=== PATIENT | male | born 1995 | race Two or more races ===

== ENCOUNTER 2024-01-25 00:42 | Inpatient (IN) | payer MEDICAID, OTHER ==
[~2024-01-25] VITALS: Ht 188 cm; Wt 95.0 kg
[2024-01-25 01:22] LABS: Basophils # (auto) 0.1 10 ^3/uL (0-0.2); Basophils % (auto) 1.6 % (0.0-2.0); Eosinophils # (auto) 0.1 10 ^3/uL (0-0.8); Eosinophils % (auto) 2.7 % (0.0-7.0); Hematocrit 33.4 % (41.0-53.0); Hemoglobin 10.9 g/dL (13.5-17.5); Lymphocytes # (auto) 1.4 10 ^3/uL (0.4-5.4); Lymphocytes % (auto) 26.3 % (10.0-50.0); Mean Corpuscular Hemoglobin 27.6 pg (28.0-32.0); Mean Corpuscular Hgb Conc. 32.7 g/dL (32.0-36.0); Mean Corpuscular Volume 84.3 fL (80.0-100.0); Monocytes # (auto) 0.5 10 ^3/uL (0-1.3); Monocytes % (auto) 9.3 % (0.0-12.0); Neutrophils # (auto) 3.2 10 ^3/uL (1.6-8.6); Neutrophils % (auto) 60.1 % (37.0-80.0); Nucleated Red Blood Cells % 0.1 %; Red Blood Cells 3.96 10^6/uL (4.5-5.90); Red Cell Distribution Width 17.1 % (11.8-14.3); White Blood Cell 5.4 10^3/uL (4.4-10.8)
[2024-01-25 01:36] LABS: Alanine Aminotransferase 20 U/L (7-40); Albumin 3.8 g/dL (3.2-4.8); Alkaline Phosphatase 80 U/L (46-116); Anion Gap 8 (5-15); Aspartate Aminotransferase 32 U/L (13-40); BUN/Creatinine Ratio 18.3 (10.0-20.0); Blood Urea Nitrogen 17 mg/dL (9-23); Calcium 9.2 mg/dL (8.7-10.4); Carbon Dioxide 23 mmol/L (20-30); Chloride 109 mmol/L (98-107); Glucose 113 mg/dL (74-106); Potassium 3.3 mmol/L (3.5-5.1); Sodium 140 mmol/L (136-145)
[2024-01-25 01:37] LABS: Bilirubin, Total 1.4 mg/dL (0.2-1.0); Total Protein 6.7 g/dL (5.7-8.2)
[2024-01-25 08:00] VITALS: PULSE 100; RESP 16; O2SAT 97
[2024-01-25 08:39] LABS: Urine Bacteria None Seen /hpf (None Seen)
[2024-01-25 08:49] LABS: Urine Blood Negative /uL (Negative); Urine Clarity Clear (Clear); Urine Color Colorless (Yellow); Urine Protein, UAD Negative (Negative); Urine Specific Gravity 1.007 (1.001-1.035); Urine Urobilinogen Normal (Negative); Urine WBC <1 /hpf (0 - 3)
[2024-01-25] MEDS ORDERED: EMPA1TAB PO (08:59)
[2024-01-25] MEDS ORDERED: METO-289 PO (08:59)
[2024-01-25] MEDS ORDERED: MIRT1TAB38 PO (08:59)
[2024-01-25] MEDS ORDERED: APIX5TAB PO (08:59)
[2024-01-25] MEDS ORDERED: LOS25T PO (08:59)
[2024-01-25] MEDS ORDERED: ATOR40TA52 PO (08:59)
[2024-01-25] MEDS ORDERED: DAPA1TAB4 PO (08:59)
[2024-01-25] MEDS ORDERED: ASPI81CH59 PO (08:59)
[2024-01-25] MEDS ORDERED: QUET100T47 PO (08:59)
[2024-01-25] MEDS ORDERED: LISI2.5T47 PO (08:59)
[2024-01-25] MEDS ORDERED: FURO40TA4 PO (08:59)
[2024-01-25] MEDS ORDERED: DULO1CAP5 PO (08:59)
[2024-01-25] MEDS ORDERED: VALP250C3 (08:59)
[2024-01-25] MEDS ORDERED: LEVE500T3 PO (08:59)
[2024-01-25] MEDS ORDERED: ACETAMINOPHEN 325 MG TAB PO PRN (09:00)
[2024-01-25] MEDS ORDERED: NITROGLYCERIN 0.4 MG SL TAB SL PRN (09:00)
[2024-01-25 09:22] LABS: Amphetamine Screen, Urine Neg (NEGATIVE); Barbiturate Scree,Urine Neg (NEGATIVE); Benzodiazephine Screen, Urine Neg (NEGATIVE); Cannabinoid Screen, Urine Neg (NEGATIVE); Cocaine Screen, Urine Neg (NEGATIVE); Opiate Scree,Urine Neg (NEGATIVE); Phencyclidine Screen, Urine Neg (NEGATIVE)
[2024-01-25 09:36] LABS: Basophils # (auto) 0.1 10 ^3/uL (0-0.2); Basophils % (auto) 1.4 % (0.0-2.0); Eosinophils # (auto) 0.1 10 ^3/uL (0-0.8); Eosinophils % (auto) 2.3 % (0.0-7.0); Hematocrit 33.2 % (41.0-53.0); Hemoglobin 10.8 g/dL (13.5-17.5); Lymphocytes # (auto) 1.4 10 ^3/uL (0.4-5.4); Lymphocytes % (auto) 24.2 % (10.0-50.0); Mean Corpuscular Hemoglobin 27.6 pg (28.0-32.0); Mean Corpuscular Hgb Conc. 32.6 g/dL (32.0-36.0); Mean Corpuscular Volume 84.5 fL (80.0-100.0); Monocytes # (auto) 0.5 10 ^3/uL (0-1.3); Monocytes % (auto) 8.7 % (0.0-12.0); Neutrophils # (auto) 3.6 10 ^3/uL (1.6-8.6); Neutrophils % (auto) 63.4 % (37.0-80.0); Nucleated Red Blood Cells % 0.1 %; Red Blood Cells 3.93 10^6/uL (4.5-5.90); White Blood Cell 5.7 10^3/uL (4.4-10.8)
[2024-01-25 09:41] LABS: Chloride 109 mmol/L (98-107); Potassium 3.5 mmol/L (3.5-5.1); Sodium 141 mmol/L (136-145)
[2024-01-25 09:42] LABS: Anion Gap 10 (5-15); Calcium 9.5 mg/dL (8.7-10.4); Carbon Dioxide 22 mmol/L (20-30)
[2024-01-25 09:47] LABS: BUN/Creatinine Ratio 16.3 (10.0-20.0); Blood Urea Nitrogen 16 mg/dL (9-23); Glucose 98 mg/dL (74-106); Magnesium 1.5 mg/dL (1.6-2.6)
[2024-01-25] MEDS: POTASSIUM EFFERVESENT TAB 25 MEQ PO ONE (10:47)
[2024-01-25] MEDS: ASPirin 81 mg TAB PO SCH (10:47)
[2024-01-25] MEDS: EMPAGLIFLOZIN 10 MG TAB PO SCH (10:47)
[2024-01-25] MEDS: levETIRAcetam 500 MG TAB PO SCH (10:47)
[2024-01-25] MEDS: QUEtiapine FUMARATE 100 MG TAB PO SCH (10:48)
[2024-01-25] MEDS: APIXABAN 5 MG TAB PO SCH (10:48)
[2024-01-25] MEDS: DULoxetine HCL 30 MG CAP PO SCH (10:49)
[2024-01-25] MEDS: LISINOPRIL 5 MG TAB PO SCH (10:49)
[2024-01-25] MEDS: LOSARTAN POTASSIUM 25 MG TAB PO SCH (10:50)
[2024-01-25] MEDS: FUROSEMIDE 20 MG/2 ML VIAL IV ONE (10:50)
[2024-01-25] MEDS: METOPROLOL SUCCINATE XL 50 MG TAB PO SCH (10:51)
[2024-01-25 11:29] VITALS: BP 123/78; PULSE 100; PULSE 105; RESP 18; RESP 21; TEMP 98; O2SAT 100; O2SAT 92
[2024-01-25] MEDS: MORPHINE SULFATE INJ 2 MG/ml SYRG IV PRN (11:40)
[2024-01-25 12:45] VITALS: BP 123/78; PULSE 105; RESP 21; TEMP 98; O2SAT 100
[2024-01-25] MEDS: MAGNESIUM SULFATE 1GM/100ML 100 ML IV SCH (16:08)
[2024-01-25 17:00] VITALS: BP 115/73; PULSE 91; RESP 17; TEMP 97.5; O2SAT 97
[2024-01-25 20:00] VITALS: PULSE 89; PULSE 91; RESP 18; O2SAT 100
[2024-01-25] MEDS: ATORVASTATIN 20 MG TAB PO SCH (20:59)
[2024-01-25 21:00] VITALS: BP 101/69; PULSE 76; RESP 18; TEMP 97.8; O2SAT 99
[2024-01-26] VITALS (10 sets, daily range): BP systolic 96–114; BP diastolic 52–82; PULSE 65–92; RESP 16–22; TEMP 97.4–98.4; O2SAT 91–100
[2024-01-26 06:15] LABS: Basophils # (auto) 0.1 10 ^3/uL (0-0.2); Basophils % (auto) 1.5 % (0.0-2.0); Eosinophils # (auto) 0.1 10 ^3/uL (0-0.8); Eosinophils % (auto) 2.5 % (0.0-7.0); Hematocrit 33.4 % (41.0-53.0); Lymphocytes # (auto) 1.4 10 ^3/uL (0.4-5.4); Lymphocytes % (auto) 29.1 % (10.0-50.0); Mean Corpuscular Hemoglobin 27.8 pg (28.0-32.0); Mean Corpuscular Volume 84.1 fL (80.0-100.0); Monocytes # (auto) 0.6 10 ^3/uL (0-1.3); Monocytes % (auto) 11.5 % (0.0-12.0); Neutrophils # (auto) 2.7 10 ^3/uL (1.6-8.6); Neutrophils % (auto) 55.4 % (37.0-80.0); Nucleated Red Blood Cells % 0.1 %; Red Blood Cells 3.98 10^6/uL (4.5-5.90); Red Cell Distribution Width 16.6 % (11.8-14.3); White Blood Cell 4.8 10^3/uL (4.4-10.8)
[2024-01-26 06:36] LABS: Alanine Aminotransferase 20 U/L (7-40); Albumin 3.6 g/dL (3.2-4.8); Alkaline Phosphatase 77 U/L (46-116); Anion Gap 11 (5-15); Aspartate Aminotransferase 27 U/L (13-40); Blood Urea Nitrogen 16 mg/dL (9-23); Calcium 9.4 mg/dL (8.7-10.4); Carbon Dioxide 24 mmol/L (20-30); Chloride 105 mmol/L (98-107); Glucose 86 mg/dL (74-106); Potassium 3.8 mmol/L (3.5-5.1); Sodium 140 mmol/L (136-145)
[2024-01-26 06:37] LABS: Bilirubin, Total 1.6 mg/dL (0.2-1.0); Total Protein 6.3 g/dL (5.7-8.2)
[2024-01-26] MEDS ORDERED: EMPAGLIFLOZIN 10 MG TAB PO SCH (10:00)
[2024-01-26] MEDS: IOHEXOL 350 MG/ML 100ML IJ ONE (12:51)
[2024-01-26] MEDS: FUROSEMIDE 40 MG/4 ML VIAL IV ONE (14:58)
[2024-01-26] MEDS: FUROSEMIDE 40 MG/4 ML VIAL IV SCH (18:00)
[2024-01-27] VITALS (11 sets, daily range): BP systolic 90–127; BP diastolic 51–85; PULSE 55–104; RESP 18–27; TEMP 97.1–98.9; O2SAT 95–100
[2024-01-27 06:11] LABS: Basophils # (auto) 0.1 10 ^3/uL (0-0.2); Basophils % (auto) 0.9 % (0.0-2.0); Eosinophils # (auto) 0.1 10 ^3/uL (0-0.8); Eosinophils % (auto) 0.6 % (0.0-7.0); Hematocrit 36.2 % (41.0-53.0); Hemoglobin 12.1 g/dL (13.5-17.5); Lymphocytes # (auto) 0.9 10 ^3/uL (0.4-5.4); Lymphocytes % (auto) 10.1 % (10.0-50.0); Mean Corpuscular Hemoglobin 28.1 pg (28.0-32.0); Mean Corpuscular Hgb Conc. 33.3 g/dL (32.0-36.0); Mean Corpuscular Volume 84.3 fL (80.0-100.0); Monocytes # (auto) 0.5 10 ^3/uL (0-1.3); Monocytes % (auto) 4.9 % (0.0-12.0); Neutrophils # (auto) 7.8 10 ^3/uL (1.6-8.6); Neutrophils % (auto) 83.5 % (37.0-80.0); Nucleated Red Blood Cells % 0.1 %; Red Blood Cells 4.29 10^6/uL (4.5-5.90); Red Cell Distribution Width 16.9 % (11.8-14.3); White Blood Cell 9.4 10^3/uL (4.4-10.8)
[2024-01-27 06:21] LABS: Chloride 102 mmol/L (98-107); Potassium 4.2 mmol/L (3.5-5.1); Sodium 137 mmol/L (136-145)
[2024-01-27 06:22] LABS: Anion Gap 10 (5-15); Calcium 9.6 mg/dL (8.7-10.4); Carbon Dioxide 25 mmol/L (20-30)
[2024-01-27 06:27] LABS: BUN/Creatinine Ratio 16.3 (10.0-20.0); Blood Urea Nitrogen 17 mg/dL (9-23); Glucose 87 mg/dL (74-106)
[2024-01-27] MEDS: METOPROLOL SUCCINATE XL 50 MG TAB PO SCH (10:43)
[2024-01-27] MEDS: DOCUSATE SOD 100 MG CAP PO ONE (14:38)
[2024-01-27 16:02] LABS: Rapid Influenza A Negative (Negative); Rapid Influenza B Negative (Negative)
[2024-01-27 16:03] LABS: COVID19 ANTIGEN SOFIA FIA NEGATIVE (NEGATIVE)
[2024-01-27 17:39] LABS: Base Excess 2.4 mmol/L (-2.0-2.0)
[2024-01-27 18:44] LABS: Basophils # (auto) 0.1 10 ^3/uL (0-0.2); Basophils % (auto) 1.2 % (0.0-2.0); Eosinophils # (auto) 0.1 10 ^3/uL (0-0.8); Eosinophils % (auto) 1.1 % (0.0-7.0); Hematocrit 36.7 % (41.0-53.0); Lymphocytes # (auto) 1.3 10 ^3/uL (0.4-5.4); Lymphocytes % (auto) 13.6 % (10.0-50.0); Mean Corpuscular Hemoglobin 27.3 pg (28.0-32.0); Mean Corpuscular Hgb Conc. 32.7 g/dL (32.0-36.0); Mean Corpuscular Volume 83.4 fL (80.0-100.0); Monocytes # (auto) 0.8 10 ^3/uL (0-1.3); Monocytes % (auto) 7.9 % (0.0-12.0); Neutrophils # (auto) 7.6 10 ^3/uL (1.6-8.6); Neutrophils % (auto) 76.2 % (37.0-80.0); Nucleated Red Blood Cells % 0.1 %; White Blood Cell 9.9 10^3/uL (4.4-10.8)
[2024-01-27 19:04] LABS: Alanine Aminotransferase 20 U/L (7-40); Albumin 3.7 g/dL (3.2-4.8); Alkaline Phosphatase 80 U/L (46-116); Anion Gap 5 (5-15); Aspartate Aminotransferase 18 U/L (13-40); Bilirubin, Total 2.1 mg/dL (0.2-1.0); Blood Urea Nitrogen 16 mg/dL (9-23); Calcium 9.3 mg/dL (8.7-10.4); Carbon Dioxide 31 mmol/L (20-30); Chloride 101 mmol/L (98-107); Glucose 100 mg/dL (74-106); Potassium 3.7 mmol/L (3.5-5.1); Sodium 137 mmol/L (136-145)
[2024-01-27 19:05] LABS: Total Protein 6.5 g/dL (5.7-8.2)
[2024-01-27 19:21] LABS: Base Excess 3.4 mmol/L (-2.0-2.0)
[2024-01-27] MEDS: VALPROIC ACID 250 MG/5 ML ORAL SOLN PO ONE (21:00)
[2024-01-27] MEDS: methylPREDNISolone SOD SUCC 40 MG/ML VL IV ONE (21:33)
[2024-01-27] MEDS: FUROSEMIDE 20 MG/2 ML VIAL IV SCH (21:41)
[2024-01-28] VITALS (20 sets, daily range): BP systolic 95–114; BP diastolic 56–77; PULSE 60–89; RESP 9–33; TEMP 97.6–98.2; O2SAT 93–100
[2024-01-28] MEDS: VALPROIC ACID 250 MG/5 ML ORAL SOLN PO ONE (00:28)
[2024-01-28 06:10] LABS: Basophils # (auto) 0 10 ^3/uL (0-0.2); Basophils % (auto) 0.3 % (0.0-2.0); Eosinophils # (auto) 0 10 ^3/uL (0-0.8); Hematocrit 34.8 % (41.0-53.0); Hemoglobin 11.4 g/dL (13.5-17.5); Lymphocytes # (auto) 0.4 10 ^3/uL (0.4-5.4); Mean Corpuscular Hemoglobin 27.3 pg (28.0-32.0); Mean Corpuscular Hgb Conc. 32.8 g/dL (32.0-36.0); Mean Corpuscular Volume 83.1 fL (80.0-100.0); Monocytes # (auto) 0.1 10 ^3/uL (0-1.3); Neutrophils # (auto) 5.5 10 ^3/uL (1.6-8.6); Neutrophils % (auto) 90.7 % (37.0-80.0); Nucleated Red Blood Cells % 0.1 %; Red Blood Cells 4.18 10^6/uL (4.5-5.90); Red Cell Distribution Width 16.9 % (11.8-14.3); White Blood Cell 6.1 10^3/uL (4.4-10.8)
[2024-01-28 06:29] LABS: Anion Gap 9 (5-15); Calcium 9.3 mg/dL (8.7-10.4); Carbon Dioxide 28 mmol/L (20-30); Chloride 100 mmol/L (98-107); Potassium 4.1 mmol/L (3.5-5.1); Sodium 137 mmol/L (136-145)
[2024-01-28 06:35] LABS: BUN/Creatinine Ratio 16.5 (10.0-20.0); Blood Urea Nitrogen 17 mg/dL (9-23); Glucose 126 mg/dL (74-106); Magnesium 1.9 mg/dL (1.6-2.6)
[2024-01-28] MEDS: methylPREDNISolone SOD SUCC 40 MG/ML VL IV SCH (09:17)
[2024-01-28] MEDS: VALPROIC ACID 250 MG/5 ML ORAL SOLN PO SCH (10:00)
[2024-01-28] MEDS ORDERED: SPIR25TA8 PO (13:53)
== END 2024-01-28 18:40 | disposition home or self-care (01) | DRG 194 ==
LOC: ER 00:42 → TELE 08:58 → TELE-WESTW 11:23 → DOU IN ICU 01-27 22:50
PROVIDERS: ADMIT Internal Medicine Pulmonary Disease; ATTEND Anesthesiology
DX: I11.0 Hypertensive heart disease with heart failure (principal); J96.21 Acute and chronic respiratory failure with hypoxia; I27.22 Pulmonary hypertension due to left heart disease; G40.909 Epilepsy, unspecified, not intractable, without status epilepticus; I48.91 Unspecified atrial fibrillation; E87.6 Hypokalemia; F15.10 Other stimulant abuse, uncomplicated; I50.23 Acute on chronic systolic (congestive) heart failure; J44.9 Chronic obstructive pulmonary disease, unspecified; Z99.81 Dependence on supplemental oxygen; Z20.822 Contact with and (suspected) exposure to COVID-19; F17.210 Nicotine dependence, cigarettes, uncomplicated; Z86.73 Personal history of transient ischemic attack (TIA), and cerebral infarction without residual deficits; Z79.01 Long term (current) use of anticoagulants; Z71.51 Drug abuse counseling and surveillance of drug abuser; Z93.1 Gastrostomy status
CPT/HCPCS: 36415; 36600; 70450; 71045; 71275; 80048; 80053; 80307; 81001; 82140; 82542; 82607; 82805; 82962; 83735; 83880; 84443; 84484; 85025; 85379; 87081; 87426; 87804; 93005; 93306; 93970; 97163; 99291; G0378

== ENCOUNTER 2024-02-15 13:52 | Emergency (ER) | payer MEDICAID ==
[~2024-02-15] VITALS: Ht 188 cm; Wt 90.0 kg
[~2024-02-15 13:52] MED LIST: APIX5TAB PO; ASPI81CH59 PO; ATOR40TA52 PO; DAPA1TAB4 PO; DULO1CAP5 PO; EMPA1TAB PO; FURO40TA4 PO; LEVE500T3 PO; LISI2.5T47 PO; METO-289 PO; MIRT1TAB38 PO; QUET100T47 PO; SPIR25TA8 PO; VALP250C3
[2024-02-15 15:05] LABS: Basophils # (auto) 0.1 10 ^3/uL (0-0.2); Eosinophils # (auto) 0.1 10 ^3/uL (0-0.8); Hemoglobin 12.1 g/dL (13.5-17.5)
[2024-02-15 15:09] LABS: Basophils % (auto) 1.4 % (0.0-2.0); Eosinophils % (auto) 2.4 % (0.0-7.0); Hematocrit 37.7 % (41.0-53.0); Lymphocytes % (auto) 20.1 % (10.0-50.0); Mean Corpuscular Hemoglobin 26.4 pg (28.0-32.0); Mean Corpuscular Volume 82.6 fL (80.0-100.0); Monocytes # (auto) 0.5 10 ^3/uL (0-1.3); Monocytes % (auto) 11.2 % (0.0-12.0); Neutrophils # (auto) 3.1 10 ^3/uL (1.6-8.6); Neutrophils % (auto) 64.9 % (37.0-80.0); Nucleated Red Blood Cells % 0.1 %; Platelet Count (auto) 162 10^3/uL (140-450); Red Blood Cells 4.56 10^6/uL (4.5-5.90); Red Cell Distribution Width 17.8 % (11.8-14.3); White Blood Cell 4.8 10^3/uL (4.4-10.8)
[2024-02-15 15:20] VITALS: BP 117/81; PULSE 99; RESP 20; TEMP 97.3; O2SAT 96
[2024-02-15 15:23] LABS: Alanine Aminotransferase 18 U/L (7-40); Albumin 4.4 g/dL (3.2-4.8); Alkaline Phosphatase 85 U/L (46-116); Anion Gap 8 (5-15); Aspartate Aminotransferase 23 U/L (13-40); BUN/Creatinine Ratio 16.3 (10.0-20.0); Bilirubin, Total 2.7 mg/dL (0.2-1.0); Blood Urea Nitrogen 20 mg/dL (9-23); Calcium 10.1 mg/dL (8.7-10.4); Carbon Dioxide 27 mmol/L (20-30); Chloride 110 mmol/L (98-107); Creatine Kinase IFCC 77 U/L (46-171); Glucose 86 mg/dL (74-106); Potassium 3.9 mmol/L (3.5-5.1); Sodium 145 mmol/L (136-145); Total Protein 7.6 g/dL (5.7-8.2)
[2024-02-15] MEDS: cefTRIAXone SOD 1,000 MG VL IM ONE (17:33)
[2024-02-15] MEDS ORDERED: IBUP1TAB5 PO (17:49)
[2024-02-15] MEDS ORDERED: CEPH500C PO (17:49)
== END 2024-02-15 17:54 | disposition home or self-care (01) ==
LOC: ER 13:52
DX: S01.02XA Laceration with foreign body of scalp, initial encounter (principal); I48.91 Unspecified atrial fibrillation; I50.9 Heart failure, unspecified; J44.9 Chronic obstructive pulmonary disease, unspecified; F17.210 Nicotine dependence, cigarettes, uncomplicated; F15.90 Other stimulant use, unspecified, uncomplicated; Z86.73 Personal history of transient ischemic attack (TIA), and cerebral infarction without residual deficits; Z79.899 Other long term (current) drug therapy; W20.8XXA Other cause of strike by thrown, projected or falling object, initial encounter; Y93.01 Activity, walking, marching and hiking; Y92.89 Other specified places as the place of occurrence of the external cause; Y99.8 Other external cause status
CPT/HCPCS: 12032; 36415; 70450; 80053; 82550; 83605; 85025; 96372; 99285; J0696

== ENCOUNTER 2024-02-23 04:08 | Inpatient (IN) | payer MEDICAID ==
[~2024-02-23] VITALS: Ht 188 cm; Wt 92.5 kg
[2024-02-23] VITALS (9 sets, daily range): BP systolic 90–134; BP diastolic 48–69; PULSE 16–89; RESP 16–20; TEMP 98–98.8; O2SAT 96–100
[~2024-02-23 04:08] MED LIST changes: +CEPH500C PO; +IBUP1TAB5 PO
[2024-02-23] MEDS: ASPirin 81 mg TAB PO ONE (04:30)
[2024-02-23] MEDS: ONDANSETRON HCL 4 MG/2 ML VIAL ONE (04:37)
[2024-02-23] MEDS: ONDANSETRON HCL 4 MG/2 ML VIAL IV ONE (04:37)
[2024-02-23 04:55] LABS: Alanine Aminotransferase 17 U/L (7-40); Alkaline Phosphatase 85 U/L (46-116); Anion Gap 11 (5-15); Aspartate Aminotransferase 33 U/L (13-40); BUN/Creatinine Ratio 16.8 (10.0-20.0); Bilirubin, Total 1.9 mg/dL (0.2-1.0); Blood Urea Nitrogen 18 mg/dL (9-23); Calcium 8.8 mg/dL (8.7-10.4); Carbon Dioxide 18 mmol/L (20-30); Chloride 110 mmol/L (98-107); Glucose 77 mg/dL (74-106); Magnesium 1.7 mg/dL (1.6-2.6); Potassium 4.3 mmol/L (3.5-5.1); Sodium 139 mmol/L (136-145); Total Protein 6.8 g/dL (5.7-8.2)
[2024-02-23 05:31] LABS: Blood Alcohol < 3.0 mg/dL (<10)
[2024-02-23 05:52] LABS: Urine Bacteria None Seen /hpf (None Seen)
[2024-02-23 05:58] LABS: COVID19 ANTIGEN SOFIA FIA NEGATIVE (NEGATIVE); Rapid Influenza A Negative (Negative); Rapid Influenza B Negative (Negative)
[2024-02-23 06:01] LABS: Urine Blood Negative /uL (Negative); Urine Clarity Clear (Clear); Urine Color Light-Yellow (Yellow); Urine Protein, UAD 1+ (Negative); Urine Specific Gravity 1.007 (1.001-1.035); Urine Urobilinogen Normal (Negative); Urine WBC 1 /hpf (0 - 3)
[2024-02-23 06:22] LABS: Amphetamine Screen, Urine Pos (NEGATIVE); Barbiturate Scree,Urine Neg (NEGATIVE); Benzodiazephine Screen, Urine Neg (NEGATIVE); Cocaine Screen, Urine Neg (NEGATIVE); Opiate Scree,Urine Neg (NEGATIVE)
[2024-02-23 06:23] LABS: Cannabinoid Screen, Urine Neg (NEGATIVE); Phencyclidine Screen, Urine Neg (NEGATIVE)
[2024-02-23 06:35] LABS: Base Excess -3.8 mmol/L (-2.0-2.0)
[2024-02-23 06:35] LABS: Hematocrit 36.6 % (41.0-53.0); Hemoglobin 11.8 g/dL (13.5-17.5); Mean Corpuscular Hemoglobin 26.2 pg (28.0-32.0); Mean Corpuscular Hgb Conc. 32.2 g/dL (32.0-36.0); Mean Corpuscular Volume 81.3 fL (80.0-100.0); White Blood Cell 8.4 10^3/uL (4.4-10.8)
[2024-02-23 07:07] LABS: Basophils % (manual) 0 (0.0-2.0); Blast Cells 0; Metamyelocytes % 0; Myelocytes % 0; Promyelocytes % 0; Reactive Lymphocytes 0
[2024-02-23 07:09] LABS: Platelet Count (auto) 231 10^3/uL (140-450)
[2024-02-23 07:46] LABS: Band Neutrophils % (manual) 2; Eosinophils % (manual) 1 (0-7); Lymphocytes % (manual) 35 (10.0-50.0); Monocytes % (manual) 9 (0-12)
[2024-02-23 07:47] LABS: Platelet Estimate Adequate
[2024-02-23] MEDS: FUROSEMIDE 40 MG/4 ML VIAL IV ONE (10:58)
[2024-02-23] MEDS ORDERED: NITROGLYCERIN 0.4 MG SL TAB SL PRN (11:00)
[2024-02-23] MEDS: ASPirin-EC 81 mg tab PO ONE (11:00)
[2024-02-23] MEDS ORDERED: DOCUSATE SOD 100 MG CAP PO PRN (11:00)
[2024-02-23] MEDS ORDERED: HYDROcodone-ACET 5/325MG TAB PO PRN (11:00)
[2024-02-23] MEDS ORDERED: ACETAMINOPHEN 325 MG TAB PO PRN (11:00)
[2024-02-23] MEDS ORDERED: HYDROmorphone HCL 2 MG/ML VL/or syr IV PRN (11:00)
[2024-02-23] MEDS: MORPHINE SULFATE INJ 2 MG/ml SYRG IV PRN (11:48)
[2024-02-23] MEDS: ONDANSETRON HCL 4 MG/2 ML VIAL IV PRN (11:48)
[2024-02-23 12:50] LABS: Base Excess -3.9 mmol/L (-2.0-2.0)
[2024-02-23] MEDS: SODIUM CHLOR 0.9% PF (SALINE LOCK) 10ML VIAL/SYR IV SCH (13:35)
[2024-02-23] MEDS: DOBUTamine 1000MCG/ML 250 ML IV SCH (16:30)
[2024-02-23] MEDS: levETIRAcetam 500 MG TAB PO SCH (21:18)
[2024-02-23] MEDS: APIXABAN 5 MG TAB PO SCH (21:18)
[2024-02-23] MEDS: VALPROIC ACID 250 MG/5 ML ORAL SOLN PO SCH (21:18)
[2024-02-23] MEDS ORDERED: FUROSEMIDE 40 MG/4 ML VIAL IV SCH (22:00)
[2024-02-24] VITALS (9 sets, daily range): BP systolic 98–110; BP diastolic 51–76; PULSE 70–102; RESP 16–98; TEMP 97.3–98.3; O2SAT 96–99
[2024-02-24 05:54] LABS: Basophils # (auto) 0.1 10 ^3/uL (0-0.2); Eosinophils # (auto) 0.3 10 ^3/uL (0-0.8); Hemoglobin 10.7 g/dL (13.5-17.5); Mean Corpuscular Hemoglobin 25.6 pg (28.0-32.0); Monocytes # (auto) 0.9 10 ^3/uL (0-1.3); Red Blood Cells 4.17 10^6/uL (4.5-5.90)
[2024-02-24 05:56] LABS: Basophils % (auto) 1.7 % (0.0-2.0); Eosinophils % (auto) 4.4 % (0.0-7.0); Hematocrit 33.4 % (41.0-53.0); Lymphocytes # (auto) 1.9 10 ^3/uL (0.4-5.4); Lymphocytes % (auto) 27.7 % (10.0-50.0); Mean Corpuscular Volume 80.1 fL (80.0-100.0); Monocytes % (auto) 12.8 % (0.0-12.0); Neutrophils # (auto) 3.6 10 ^3/uL (1.6-8.6); Neutrophils % (auto) 53.4 % (37.0-80.0); Nucleated Red Blood Cells % 0.2 %; White Blood Cell 6.7 10^3/uL (4.4-10.8)
[2024-02-24 05:59] LABS: Alanine Aminotransferase 16 U/L (7-40); Albumin 3.5 g/dL (3.2-4.8); Alkaline Phosphatase 76 U/L (46-116); Anion Gap 8 (5-15); Aspartate Aminotransferase 26 U/L (13-40); BUN/Creatinine Ratio 15.8 (10.0-20.0); Blood Urea Nitrogen 18 mg/dL (9-23); Calcium 8.7 mg/dL (8.7-10.4); Carbon Dioxide 24 mmol/L (20-30); Chloride 104 mmol/L (98-107); Glucose 98 mg/dL (74-106); Magnesium 1.9 mg/dL (1.6-2.6); Potassium 3.6 mmol/L (3.5-5.1); Sodium 136 mmol/L (136-145)
[2024-02-24 06:00] LABS: Bilirubin, Total 1.7 mg/dL (0.2-1.0); Total Protein 6.3 g/dL (5.7-8.2)
[2024-02-24] MEDS: SPIRONOLACTONE 25 MG TAB PO SCH (08:04)
[2024-02-24] MEDS: EMPAGLIFLOZIN 10 MG TAB PO SCH (08:04)
[2024-02-24] MEDS: DULoxetine HCL 30 MG CAP PO SCH (08:05)
[2024-02-24] MEDS: QUEtiapine FUMARATE 100 MG TAB PO SCH (08:05)
[2024-02-24] MEDS: LISINOPRIL 5 MG TAB PO SCH (08:06)
[2024-02-24 08:08] LABS: Platelet Count (auto) 150 10^3/uL (140-450)
[2024-02-24] MEDS ORDERED: ATORVASTATIN 20 MG TAB PO SCH (10:00)
[2024-02-24] MEDS ORDERED: METOPROLOL SUCCINATE XL 50 MG TAB PO SCH (10:00)
[2024-02-24] MEDS ORDERED: PATIENTS OWN MEDICATION (Aspirin (Aspirin Low Dose) 1 TAB) PO SCH (10:00)
[2024-02-24] MEDS ORDERED: ENOXAPARIN SOD 40 MG/0.4 ML SYRINGE SC SCH (10:00)
[2024-02-24] MEDS ORDERED: SPIRONOLACTONE 25 MG TAB PO SCH (10:00)
[2024-02-24] MEDS: DAPAGLIFLOZIN PROPANEDIOL PO SCH (10:00)
[2024-02-24] MEDS ORDERED: ASPirin-EC 81 mg tab PO SCH (10:00)
[2024-02-24] MEDS: FUROSEMIDE 40 MG/4 ML VIAL IV ONE (10:40)
[2024-02-25] VITALS (10 sets, daily range): BP systolic 88–131; BP diastolic 46–76; PULSE 70–97; RESP 18–22; TEMP 97.5–98.8; O2SAT 95–99
[2024-02-25 07:04] LABS: Alanine Aminotransferase 15 U/L (7-40); Albumin 3.7 g/dL (3.2-4.8); Alkaline Phosphatase 85 U/L (46-116); Calcium 9.3 mg/dL (8.7-10.4); Carbon Dioxide 26 mmol/L (20-30); Chloride 105 mmol/L (98-107)
[2024-02-25 07:05] LABS: Anion Gap 6 (5-15); Aspartate Aminotransferase 25 U/L (13-40); BUN/Creatinine Ratio 13.8 (10.0-20.0); Bilirubin, Total 1.5 mg/dL (0.2-1.0); Blood Urea Nitrogen 15 mg/dL (9-23); Glucose 79 mg/dL (74-106); Potassium 3.9 mmol/L (3.5-5.1); Sodium 137 mmol/L (136-145); Total Protein 6.7 g/dL (5.7-8.2)
[2024-02-25 07:22] LABS: Basophils # (auto) 0.1 10 ^3/uL (0-0.2); Hematocrit 35.2 % (41.0-53.0); Lymphocytes # (auto) 1.3 10 ^3/uL (0.4-5.4); Nucleated Red Blood Cells % 0.1 %
[2024-02-25 07:24] LABS: Basophils % (auto) 1.6 % (0.0-2.0); Eosinophils # (auto) 0.3 10 ^3/uL (0-0.8); Eosinophils % (auto) 5.8 % (0.0-7.0); Hemoglobin 11.3 g/dL (13.5-17.5); Lymphocytes % (auto) 24.3 % (10.0-50.0); Mean Corpuscular Hemoglobin 25.7 pg (28.0-32.0); Mean Corpuscular Hgb Conc. 32.1 g/dL (32.0-36.0); Mean Corpuscular Volume 80.3 fL (80.0-100.0); Monocytes # (auto) 0.7 10 ^3/uL (0-1.3); Neutrophils % (auto) 56.3 % (37.0-80.0); Red Blood Cells 4.38 10^6/uL (4.5-5.90); Red Cell Distribution Width 17.8 % (11.8-14.3); White Blood Cell 5.4 10^3/uL (4.4-10.8)
[2024-02-25 07:28] LABS: Platelet Count (auto) 243 10^3/uL (140-450)
[2024-02-25] MEDS: FUROSEMIDE 40 MG/4 ML VIAL IV SCH (09:26)
[2024-02-26] VITALS (10 sets, daily range): BP systolic 90–106; BP diastolic 58–70; PULSE 76–90; RESP 16–20; TEMP 97–97.9; O2SAT 93–100
[2024-02-26 07:41] LABS: Basophils # (auto) 0.1 10 ^3/uL (0-0.2); Basophils % (auto) 1.5 % (0.0-2.0); Eosinophils # (auto) 0.3 10 ^3/uL (0-0.8); Eosinophils % (auto) 6.9 % (0.0-7.0); Hematocrit 37.9 % (41.0-53.0); Hemoglobin 11.9 g/dL (13.5-17.5); Lymphocytes % (auto) 23.6 % (10.0-50.0); Mean Corpuscular Hemoglobin 25.5 pg (28.0-32.0); Mean Corpuscular Hgb Conc. 31.5 g/dL (32.0-36.0); Mean Corpuscular Volume 81.1 fL (80.0-100.0); Monocytes # (auto) 0.6 10 ^3/uL (0-1.3); Monocytes % (auto) 13.8 % (0.0-12.0); Neutrophils # (auto) 2.3 10 ^3/uL (1.6-8.6); Neutrophils % (auto) 54.2 % (37.0-80.0); Nucleated Red Blood Cells % 0.2 %; Platelet Count (auto) 282 10^3/uL (140-450); Red Blood Cells 4.68 10^6/uL (4.5-5.90); Red Cell Distribution Width 17.8 % (11.8-14.3); White Blood Cell 4.3 10^3/uL (4.4-10.8)
[2024-02-26 07:49] LABS: Alanine Aminotransferase 12 U/L (7-40); Albumin 3.7 g/dL (3.2-4.8); Alkaline Phosphatase 81 U/L (46-116); Anion Gap 6 (5-15); Aspartate Aminotransferase 20 U/L (13-40); BUN/Creatinine Ratio 15.5 (10.0-20.0); Blood Urea Nitrogen 16 mg/dL (9-23); Calcium 9.1 mg/dL (8.7-10.4); Carbon Dioxide 26 mmol/L (20-30); Chloride 104 mmol/L (98-107); Glucose 92 mg/dL (74-106); Potassium 3.9 mmol/L (3.5-5.1); Sodium 136 mmol/L (136-145)
[2024-02-26 07:50] LABS: Bilirubin, Total 1.1 mg/dL (0.2-1.0); Total Protein 6.6 g/dL (5.7-8.2)
[2024-02-26] MEDS: METOPROLOL TARTRATE 25 MG TAB PO SCH (09:51)
[2024-02-27 01:00] VITALS: BP 80/47; PULSE 67; RESP 16; TEMP 98.7; O2SAT 100
[2024-02-27 01:25] VITALS: BP 92/65
[2024-02-27 05:00] VITALS: BP 89/55; PULSE 91; RESP 17; TEMP 98.5; O2SAT 99
[2024-02-27 05:33] LABS: Basophils # (auto) 0.1 10 ^3/uL (0-0.2); Eosinophils # (auto) 0.4 10 ^3/uL (0-0.8); Nucleated Red Blood Cells % 0.1 %; Red Cell Distribution Width 17.7 % (11.8-14.3)
[2024-02-27 05:40] LABS: Basophils % (auto) 1.4 % (0.0-2.0); Eosinophils % (auto) 6.5 % (0.0-7.0); Hematocrit 38.2 % (41.0-53.0); Hemoglobin 12.3 g/dL (13.5-17.5); Lymphocytes # (auto) 1.4 10 ^3/uL (0.4-5.4); Lymphocytes % (auto) 22.1 % (10.0-50.0); Mean Corpuscular Hgb Conc. 32.1 g/dL (32.0-36.0); Mean Corpuscular Volume 80.9 fL (80.0-100.0); Monocytes # (auto) 0.9 10 ^3/uL (0-1.3); Monocytes % (auto) 14.5 % (0.0-12.0); Neutrophils # (auto) 3.4 10 ^3/uL (1.6-8.6); Neutrophils % (auto) 55.5 % (37.0-80.0); Red Blood Cells 4.72 10^6/uL (4.5-5.90); White Blood Cell 6.1 10^3/uL (4.4-10.8)
[2024-02-27 05:58] LABS: Platelet Count (auto) 267 10^3/uL (140-450)
[2024-02-27 06:01] LABS: Alanine Aminotransferase 12 U/L (7-40); Alkaline Phosphatase 82 U/L (46-116); Anion Gap 6 (5-15); Aspartate Aminotransferase 14 U/L (13-40); BUN/Creatinine Ratio 15.4 (10.0-20.0); Blood Urea Nitrogen 16 mg/dL (9-23); Calcium 9.3 mg/dL (8.7-10.4); Carbon Dioxide 26 mmol/L (20-30); Chloride 107 mmol/L (98-107); Glucose 86 mg/dL (74-106); Magnesium 2.1 mg/dL (1.6-2.6); Potassium 4.4 mmol/L (3.5-5.1); Sodium 139 mmol/L (136-145)
[2024-02-27 06:02] LABS: Bilirubin, Total 0.9 mg/dL (0.2-1.0); Total Protein 6.9 g/dL (5.7-8.2)
[2024-02-27 08:00] VITALS: PULSE 86; RESP 18; O2SAT 98
[2024-02-27 09:06] VITALS: PULSE 86; RESP 18; O2SAT 98
[2024-02-27] MEDS ORDERED: SPIR25TA PO (12:08)
[2024-02-27 13:03] VITALS: BP 107/66; PULSE 85; RESP 18; TEMP 98.5; O2SAT 98
== END 2024-02-27 16:16 | disposition home or self-care (01) | DRG 194 ==
LOC: ER 04:08 → TELE 10:57 → TELE-WESTW 15:16
PROVIDERS: ADMIT Internal Medicine Pulmonary Disease; ATTEND Internal Medicine Pulmonary Disease
DX: I11.0 Hypertensive heart disease with heart failure (principal); J96.01 Acute respiratory failure with hypoxia; I42.7 Cardiomyopathy due to drug and external agent; I27.20 Pulmonary hypertension, unspecified; I48.91 Unspecified atrial fibrillation; G40.909 Epilepsy, unspecified, not intractable, without status epilepticus; F15.10 Other stimulant abuse, uncomplicated; Z20.822 Contact with and (suspected) exposure to COVID-19; I50.23 Acute on chronic systolic (congestive) heart failure; J44.9 Chronic obstructive pulmonary disease, unspecified; F17.210 Nicotine dependence, cigarettes, uncomplicated; I44.7 Left bundle-branch block, unspecified; I08.1 Rheumatic disorders of both mitral and tricuspid valves; Z86.73 Personal history of transient ischemic attack (TIA), and cerebral infarction without residual deficits; Z79.01 Long term (current) use of anticoagulants; Z91.199 Patient's noncompliance with other medical treatment and regimen due to unspecified reason; Y92.89 Other specified places as the place of occurrence of the external cause
CPT/HCPCS: 36415; 36600; 71045; 71250; 76700; 80053; 80307; 80320; 81001; 82805; 83735; 83880; 84484; 85007; 85025; 85027; 85379; 87426; 87804; 93005; 96374; 96375; 96376; 99291; G0378; J2405

== ENCOUNTER 2024-03-03 03:48 | Inpatient (IN) | payer MEDICAID, OTHER ==
[~2024-03-03] VITALS: Ht 188 cm; Wt 54.5 kg
[~2024-03-03 03:48] MED LIST changes: -ASPI81CH59 PO; -CEPH500C PO; -DAPA1TAB4 PO; -IBUP1TAB5 PO; -METO-289 PO; +SPIR25TA PO; -SPIR25TA8 PO
[2024-03-03 04:30] LABS: Basophils # (auto) 0.1 10 ^3/uL (0-0.2); Eosinophils # (auto) 0.2 10 ^3/uL (0-0.8); Monocytes # (auto) 0.8 10 ^3/uL (0-1.3); Nucleated Red Blood Cells % 0.1 %
[2024-03-03] MEDS: ASPirin 325 MG TAB PO ONE (04:30)
[2024-03-03] MEDS: NITROGLYCERIN 2% OINT 1GM PKG TD ONE (04:31)
[2024-03-03 04:33] LABS: Basophils % (auto) 1.3 % (0.0-2.0); Eosinophils % (auto) 3.2 % (0.0-7.0); Hematocrit 36.8 % (41.0-53.0); Hemoglobin 11.8 g/dL (13.5-17.5); Lymphocytes # (auto) 2.1 10 ^3/uL (0.4-5.4); Lymphocytes % (auto) 28.4 % (10.0-50.0); Mean Corpuscular Hemoglobin 25.8 pg (28.0-32.0); Mean Corpuscular Hgb Conc. 32.1 g/dL (32.0-36.0); Mean Corpuscular Volume 80.3 fL (80.0-100.0); Monocytes % (auto) 10.5 % (0.0-12.0); Neutrophils # (auto) 4.2 10 ^3/uL (1.6-8.6); Neutrophils % (auto) 56.6 % (37.0-80.0); Platelet Count (auto) 143 10^3/uL (140-450); Red Blood Cells 4.58 10^6/uL (4.5-5.90); Red Cell Distribution Width 17.8 % (11.8-14.3); White Blood Cell 7.3 10^3/uL (4.4-10.8)
[2024-03-03 04:58] LABS: Alanine Aminotransferase 14 U/L (7-40); Albumin 4.1 g/dL (3.2-4.8); Alkaline Phosphatase 86 U/L (46-116); Anion Gap 9 (5-15); Aspartate Aminotransferase 28 U/L (13-40); BUN/Creatinine Ratio 18.6 (10.0-20.0); Bilirubin, Total 1.7 mg/dL (0.2-1.0); Blood Urea Nitrogen 22 mg/dL (9-23); Calcium 9.6 mg/dL (8.7-10.4); Carbon Dioxide 21 mmol/L (20-30); Chloride 108 mmol/L (98-107); Glucose 125 mg/dL (74-106); Potassium 4.3 mmol/L (3.5-5.1); Sodium 138 mmol/L (136-145); Total Protein 7.4 g/dL (5.7-8.2)
[2024-03-03] MEDS: NITROGLYCERIN 0.4 MG SL TAB SL ONE (05:15)
[2024-03-03 05:53] VITALS: PULSE 100; RESP 22; O2SAT 97
[2024-03-03 07:36] LABS: COVID19 ANTIGEN SOFIA FIA NEGATIVE (NEGATIVE)
[2024-03-03 07:37] LABS: Rapid Influenza A Negative (Negative); Rapid Influenza B Negative (Negative)
[2024-03-03] MEDS: MORPHINE SULFATE INJ 2 MG/ml SYRG IV ONE (09:55)
[2024-03-03] MEDS ORDERED: NITROGLYCERIN 0.4 MG SL TAB SL PRN (10:30)
[2024-03-03] MEDS: FUROSEMIDE 100 MG/10ML VIAL IV ONE (10:30)
[2024-03-03 11:36] LABS: INR 1.37 (0.9-1.15); Prothrombin Time 14.2 sec (9.3-11.8)
[2024-03-03] MEDS: ASPirin 81 mg TAB PO SCH (11:44)
[2024-03-03] MEDS: SPIRONOLACTONE 25 MG TAB PO SCH (11:44)
[2024-03-03] MEDS: EMPAGLIFLOZIN 10 MG TAB PO SCH (11:45)
[2024-03-03] MEDS: DULoxetine HCL 30 MG CAP PO SCH (11:45)
[2024-03-03] MEDS: VALPROIC ACID 250 MG/5 ML ORAL SOLN PO SCH (11:45)
[2024-03-03] MEDS: QUEtiapine FUMARATE 100 MG TAB PO SCH (11:46)
[2024-03-03] MEDS: levETIRAcetam 500 MG TAB PO SCH (11:46)
[2024-03-03] MEDS: LISINOPRIL 5 MG TAB PO SCH (11:48)
[2024-03-03] MEDS: APIXABAN 5 MG TAB PO SCH (11:48)
[2024-03-03 12:50] VITALS: PULSE 87; RESP 16; O2SAT 97
[2024-03-03 13:00] VITALS: BP 115/76; PULSE 90; RESP 20; TEMP 97.4; O2SAT 99
[2024-03-03] MEDS ORDERED: PANT1INJ3 IV (15:31)
[2024-03-03] MEDS ORDERED: METO-158 PO (15:31)
[2024-03-03] MEDS ORDERED: DAPA1TAB4 PO (15:31)
[2024-03-03] MEDS: FUROSEMIDE 100 MG/10ML VIAL IV SCH (19:09)
[2024-03-03 20:00] VITALS: PULSE 83; PULSE 93; RESP 20; O2SAT 98
[2024-03-03] MEDS: ATORVASTATIN 20 MG TAB PO SCH (20:57)
[2024-03-03 21:00] VITALS: BP 96/59; PULSE 93; RESP 20; TEMP 97.3; O2SAT 98
[2024-03-04] VITALS (8 sets, daily range): BP systolic 99–114; BP diastolic 62–80; PULSE 63–102; RESP 12–20; TEMP 97.2–98; O2SAT 94–100
[2024-03-04 05:58] LABS: Alanine Aminotransferase 16 U/L (7-40); Albumin 4.4 g/dL (3.2-4.8); Alkaline Phosphatase 90 U/L (46-116); Anion Gap 10 (5-15); Aspartate Aminotransferase 22 U/L (13-40); BUN/Creatinine Ratio 22.5 (10.0-20.0); Blood Urea Nitrogen 27 mg/dL (9-23); Calcium 9.5 mg/dL (8.7-10.4); Carbon Dioxide 26 mmol/L (20-30); Chloride 104 mmol/L (98-107); Glucose 97 mg/dL (74-106); Potassium 3.7 mmol/L (3.5-5.1); Sodium 140 mmol/L (136-145)
[2024-03-04 05:59] LABS: Bilirubin, Total 1.9 mg/dL (0.2-1.0); Total Protein 7.6 g/dL (5.7-8.2)
[2024-03-04 07:31] LABS: Basophils # (auto) 0.1 10 ^3/uL (0-0.2); Basophils % (auto) 1.1 % (0.0-2.0); Eosinophils # (auto) 0.4 10 ^3/uL (0-0.8); Eosinophils % (auto) 5.4 % (0.0-7.0); Hematocrit 38.5 % (41.0-53.0); Hemoglobin 12.4 g/dL (13.5-17.5); Lymphocytes # (auto) 1.5 10 ^3/uL (0.4-5.4); Lymphocytes % (auto) 19.2 % (10.0-50.0); Mean Corpuscular Hemoglobin 25.4 pg (28.0-32.0); Mean Corpuscular Hgb Conc. 32.3 g/dL (32.0-36.0); Mean Corpuscular Volume 78.5 fL (80.0-100.0); Monocytes # (auto) 0.9 10 ^3/uL (0-1.3); Monocytes % (auto) 11.3 % (0.0-12.0); Nucleated Red Blood Cells % 0.1 %; Platelet Count (auto) 96 10^3/uL (140-450); Red Blood Cells 4.91 10^6/uL (4.5-5.90); White Blood Cell 7.9 10^3/uL (4.4-10.8)
[2024-03-04 07:53] LABS: Platelet Estimate Decreased
[2024-03-04] MEDS: MORPHINE SULFATE INJ 2 MG/ml SYRG IV PRN (19:47)
[2024-03-04 23:16] LABS: Urine Bacteria None Seen /hpf (None Seen)
[2024-03-04 23:43] LABS: Amphetamine Screen, Urine Neg (NEGATIVE); Barbiturate Scree,Urine Neg (NEGATIVE); Benzodiazephine Screen, Urine Neg (NEGATIVE); Cocaine Screen, Urine Neg (NEGATIVE); Opiate Scree,Urine Neg (NEGATIVE); Phencyclidine Screen, Urine Neg (NEGATIVE)
[2024-03-04 23:44] LABS: Cannabinoid Screen, Urine Neg (NEGATIVE)
[2024-03-04 23:45] LABS: Urine Blood Negative /uL (Negative); Urine Clarity Clear (Clear); Urine Color Yellow (Yellow); Urine Protein, UAD TRACE (Negative); Urine Specific Gravity 1.023 (1.001-1.035); Urine Urobilinogen 4 mg/dL (Negative); Urine WBC <1 /hpf (0 - 3); Urine pH 7.5 (5.0-9.0)
[2024-03-05] VITALS (8 sets, daily range): BP systolic 91–143; BP diastolic 50–81; PULSE 69–96; RESP 14–19; TEMP 97.4–98.1; O2SAT 98–100
[2024-03-05 09:00] LABS: Hepatitis B Surface Antigen Negative (Negative)
[2024-03-05 09:22] LABS: Hepatitis C Antibody Negative (Negative)
[2024-03-06] VITALS (7 sets, daily range): BP systolic 89–103; BP diastolic 54–75; PULSE 78–91; RESP 16–19; TEMP 97.3–98.7; O2SAT 98–100
[2024-03-06] MEDS: HYDROcodone-ACET 5/325MG TAB PO ONE (01:15)
== END 2024-03-06 17:30 | disposition home or self-care (01) | DRG 194 ==
LOC: ER 03:48 → TELE 10:38 → TELE-E-ADS 12:51
PROVIDERS: ADMIT Nurse Practitioner Family; ATTEND Internal Medicine Pulmonary Disease
DX: I11.0 Hypertensive heart disease with heart failure (principal); J44.1 Chronic obstructive pulmonary disease with (acute) exacerbation; R56.9 Unspecified convulsions; I50.23 Acute on chronic systolic (congestive) heart failure; Z20.822 Contact with and (suspected) exposure to COVID-19; F15.10 Other stimulant abuse, uncomplicated; F17.210 Nicotine dependence, cigarettes, uncomplicated; Z86.73 Personal history of transient ischemic attack (TIA), and cerebral infarction without residual deficits; I48.20 Chronic atrial fibrillation, unspecified
CPT/HCPCS: 36415; 71045; 80053; 80307; 81001; 83036; 83735; 83880; 84484; 85025; 85610; 86803; 87340; 87426; 87804; 93005; 96374; 99291; G0378

== ENCOUNTER 2024-03-13 21:27 | Inpatient (IN) | payer MEDICAID ==
[~2024-03-13] VITALS: Ht 188 cm; Wt 90.7 kg
[~2024-03-13 21:27] MED LIST changes: +DAPA1TAB4 PO; +METO-158 PO; +PANT1INJ3 IV
[2024-03-13 23:40] LABS: Basophils # (auto) 0.1 10 ^3/uL (0-0.2); Eosinophils # (auto) 0.1 10 ^3/uL (0-0.8); Monocytes # (auto) 0.7 10 ^3/uL (0-1.3); Nucleated Red Blood Cells % 0.2 %; White Blood Cell 7.3 10^3/uL (4.4-10.8)
[2024-03-13 23:41] LABS: Basophils % (auto) 1.4 % (0.0-2.0); Eosinophils % (auto) 1.5 % (0.0-7.0); Hematocrit 38.5 % (41.0-53.0); Hemoglobin 12.3 g/dL (13.5-17.5); Lymphocytes # (auto) 1.3 10 ^3/uL (0.4-5.4); Lymphocytes % (auto) 18.2 % (10.0-50.0); Mean Corpuscular Hemoglobin 25.7 pg (28.0-32.0); Mean Corpuscular Volume 80.1 fL (80.0-100.0); Neutrophils % (auto) 68.9 % (37.0-80.0); Red Blood Cells 4.81 10^6/uL (4.5-5.90); Red Cell Distribution Width 18.5 % (11.8-14.3)
[2024-03-13 23:48] LABS: INR 1.21 (0.9-1.15); Partial Thromboplastin Time 29.1 SEC (24.5-34.5); Prothrombin Time 12.6 sec (9.3-11.8)
[2024-03-14 00:10] LABS: Alanine Aminotransferase 37 U/L (7-40); Albumin 4.7 g/dL (3.2-4.8); Alkaline Phosphatase 98 U/L (46-116); Anion Gap 9 (5-15); Aspartate Aminotransferase 44 U/L (13-40); BUN/Creatinine Ratio 14.6 (10.0-20.0); Bilirubin, Total 1.7 mg/dL (0.2-1.0); Blood Urea Nitrogen 15 mg/dL (9-23); Calcium 9.9 mg/dL (8.7-10.4); Carbon Dioxide 19 mmol/L (20-30); Chloride 110 mmol/L (98-107); Glucose 92 mg/dL (74-106); Potassium 4.7 mmol/L (3.5-5.1); Sodium 138 mmol/L (136-145); Total Protein 7.9 g/dL (5.7-8.2)
[2024-03-14 01:08] LABS: Platelet Count (auto) 212 10^3/uL (140-450)
[2024-03-14 01:09] LABS: Platelet Estimate Adequate
[2024-03-14 05:00] VITALS: PULSE 107; RESP 35; O2SAT 96
[2024-03-14 07:32] VITALS: PULSE 112; RESP 20; O2SAT 100
[2024-03-14] MEDS: SODIUM CHLORIDE 0.9% 1,000 ML IV ONE (08:48)
[2024-03-14] MEDS: SPIRONOLACTONE 25 MG TAB PO ONE (08:48)
[2024-03-14] MEDS: MORPHINE SULFATE 4 MG/ML SYR/VIAL IV ONE (08:48)
[2024-03-14] MEDS: FUROSEMIDE 20 MG/2 ML VIAL IV ONE (08:48)
[2024-03-14] MEDS: ONDANSETRON HCL 4 MG/2 ML VIAL IV ONE (08:49)
[2024-03-14 09:34] LABS: INR 1.25 (0.9-1.15)
[2024-03-14] MEDS: IOHEXOL 350 MG/ML 100ML IJ ONE ×2 (11:09→13:19)
[2024-03-14] MEDS ORDERED: cefTRIAXone 1GM/50ML D5W 50 ML IV ONE (13:30)
[2024-03-14] MEDS ORDERED: NITROGLYCERIN 0.4 MG SL TAB SL PRN (14:00)
[2024-03-14 14:37] LABS: Amphetamine Screen, Urine Neg (NEGATIVE); Barbiturate Scree,Urine Neg (NEGATIVE); Benzodiazephine Screen, Urine Neg (NEGATIVE); Cannabinoid Screen, Urine Neg (NEGATIVE); Cocaine Screen, Urine Neg (NEGATIVE); Opiate Scree,Urine Neg (NEGATIVE); Phencyclidine Screen, Urine Neg (NEGATIVE)
[2024-03-14] MEDS: PIPERACILLIN-TAZOB 3.375GM 100 ML IV SCH (14:43)
[2024-03-14 14:45] LABS: Erythrocyte Sedimentation Rate 13 mm/hr (0-20)
[2024-03-14] MEDS: FUROSEMIDE 40 MG/4 ML VIAL IV SCH (17:07)
[2024-03-14 20:02] VITALS: BP 129/94; PULSE 94; RESP 19; TEMP 97.5; O2SAT 99
[2024-03-14] MEDS: MORPHINE SULFATE INJ 2 MG/ml SYRG IV PRN (20:08)
[2024-03-14] MEDS: METOPROLOL TARTRATE 25 MG TAB PO SCH (22:16)
[2024-03-14] MEDS ORDERED: METO-289 PO (22:20)
[2024-03-14] MEDS ORDERED: KEP500T PO (22:20)
[2024-03-14] MEDS ORDERED: DAPA1TAB4 PO (22:20)
[2024-03-14] MEDS ORDERED: VALP1CAP4 PO (22:20)
[2024-03-14 22:21] VITALS: PULSE 98; RESP 20; O2SAT 98
[2024-03-14 22:24] VITALS: BP 129/94; PULSE 94; RESP 19; TEMP 97.5; O2SAT 99
[2024-03-15] VITALS (8 sets, daily range): BP systolic 96–105; BP diastolic 54–69; PULSE 65–101; RESP 17–21; TEMP 97.3–99; O2SAT 93–100
[2024-03-15 08:55] LABS: Hepatitis B Surface Antigen Negative (Negative)
[2024-03-15 09:16] LABS: Hepatitis C Antibody Negative (Negative)
[2024-03-15] MEDS ORDERED: ACETAMINOPHEN 500 MG TAB PO PRN (11:45)
[2024-03-15] MEDS ORDERED: KETOROLAC TROMETH 30 MG/ML 1ML VIAL IV PRN (11:45)
[2024-03-15] MEDS: LISINOPRIL 5 MG TAB PO SCH (12:52)
[2024-03-16] VITALS (8 sets, daily range): BP systolic 90–110; BP diastolic 56–69; PULSE 64–85; RESP 17–20; TEMP 97.3–98.4; O2SAT 98–100
[2024-03-16 06:31] LABS: Chloride 102 mmol/L (98-107); Potassium 4.4 mmol/L (3.5-5.1); Sodium 136 mmol/L (136-145)
[2024-03-16] MEDS: HYDROcodone-ACET 5/325MG TAB PO PRN (06:31)
[2024-03-16 06:32] LABS: Anion Gap 6 (5-15); Calcium 9.2 mg/dL (8.7-10.4); Carbon Dioxide 28 mmol/L (20-30)
[2024-03-16 06:37] LABS: Blood Urea Nitrogen 28 mg/dL (9-23); Glucose 82 mg/dL (74-106)
[2024-03-16] MEDS ORDERED: BUME1TAB3 PO (14:08)
[2024-03-16] MEDS ORDERED: AUG875T PO (14:08)
[2024-03-16] MEDS ORDERED: HYDR-4902 PO (16:47)
== END 2024-03-16 18:30 | disposition home or self-care (01) | DRG 133 ==
LOC: ER 21:27 → TELE 03-14 13:51 → TELE-E-ADS 03-14 20:02
PROVIDERS: ADMIT Nurse Practitioner Acute Care; ATTEND Nurse Practitioner Acute Care
DX: J96.21 Acute and chronic respiratory failure with hypoxia (principal); I50.23 Acute on chronic systolic (congestive) heart failure; J15.69 Pneumonia due to other Gram-negative bacteria; J15.9 Unspecified bacterial pneumonia; I27.20 Pulmonary hypertension, unspecified; I11.0 Hypertensive heart disease with heart failure; J44.0 Chronic obstructive pulmonary disease with (acute) lower respiratory infection; I48.91 Unspecified atrial fibrillation; E66.9 Obesity, unspecified; F17.210 Nicotine dependence, cigarettes, uncomplicated; F15.10 Other stimulant abuse, uncomplicated; Z86.73 Personal history of transient ischemic attack (TIA), and cerebral infarction without residual deficits; Z79.899 Other long term (current) drug therapy; Z88.8 Allergy status to other drugs, medicaments and biological substances; Z68.25 Body mass index [BMI] 25.0-25.9, adult
CPT/HCPCS: 36415; 71045; 71275; 80048; 80053; 80307; 83735; 83880; 84443; 84484; 85025; 85379; 85610; 85652; 85730; 86141; 86803; 87040; 87340; 93005; G0378; J1885; J2405; J2543

== ENCOUNTER 2024-03-30 03:38 | Inpatient (IN) | payer MEDICAID, OTHER ==
[2024-03-30] VITALS (10 sets, daily range): BP systolic 104–131; BP diastolic 70–102; PULSE 62–98; RESP 16–20; TEMP 97.6–98.4; O2SAT 97–100
[~2024-03-30] VITALS: Ht 188 cm; Wt 86.6 kg
[~2024-03-30 03:38] MED LIST changes: +AUG875T PO; +BUME1TAB3 PO; -DULO1CAP5 PO; -EMPA1TAB PO; -FURO40TA4 PO; +HYDR-4902 PO; +KEP500T PO; -METO-158 PO; +METO-289 PO; -MIRT1TAB38 PO; +VALP1CAP4 PO; -VALP250C3
[2024-03-30 04:39] LABS: Hematocrit 37.8 % (41.0-53.0); Hemoglobin 11.7 g/dL (13.5-17.5); Mean Corpuscular Hemoglobin 24.3 pg (28.0-32.0); Mean Corpuscular Hgb Conc. 30.9 g/dL (32.0-36.0); Mean Corpuscular Volume 78.8 fL (80.0-100.0); Red Cell Distribution Width 19.1 % (11.8-14.3); White Blood Cell 7.8 10^3/uL (4.4-10.8)
[2024-03-30] MEDS: FUROSEMIDE 40 MG/4 ML VIAL IV ONE (04:41)
[2024-03-30 04:46] LABS: Chloride 114 mmol/L (98-107); Potassium 4.1 mmol/L (3.5-5.1); Sodium 142 mmol/L (136-145)
[2024-03-30 04:47] LABS: Anion Gap 9 (5-15); Calcium 9.8 mg/dL (8.7-10.4); Carbon Dioxide 19 mmol/L (20-31)
[2024-03-30 04:52] LABS: BUN/Creatinine Ratio 16.8 (10.0-20.0); Blood Urea Nitrogen 17 mg/dL (9-23); Glucose 76 mg/dL (74-106)
[2024-03-30 05:14] LABS: Platelet Count (auto) 237 10^3/uL (140-450)
[2024-03-30 05:15] LABS: Band Neutrophils % (manual) 0; Basophils % (manual) 0 (0.0-2.0); Blast Cells 0; Metamyelocytes % 0; Myelocytes % 0; Promyelocytes % 0; Reactive Lymphocytes 0
[2024-03-30 06:11] LABS: Eosinophils % (manual) 7 (0-7); Lymphocytes % (manual) 27 (10.0-50.0); Monocytes % (manual) 8 (0-12)
[2024-03-30 06:12] LABS: Anisocytosis Slight; Giant Platelets Few; Large Platelets FEW; Platelet Estimate Adequate
[2024-03-30 06:13] LABS: Hypochromia Slight
[2024-03-30] MEDS ORDERED: IPRATROPIUM BROM 0.5 MG/2.5ML INH SOL NEB PRN (12:15)
[2024-03-30] MEDS: ASPirin 81 mg TAB PO ONE (12:49)
[2024-03-30] MEDS: IPRATROPIUM BROM 0.5 MG/2.5ML INH SOL NEB ONE (13:44)
[2024-03-30] MEDS: ALBUTEROL SULF 2.5 MG/0.5ML(0.5%) NEB SOLN NEB ONE (13:44)
[2024-03-30] MEDS: HYDROcodone-ACET 5/325MG TAB PO ONE (14:29)
[2024-03-30] MEDS: BUMETANIDE 1mg/4ml VIAL (0.25mg/ml) IV SCH (18:30)
[2024-03-30] MEDS: HYDROcodone-ACET 5/325MG TAB PO PRN (18:30)
[2024-03-30] MEDS: APIXABAN 5 MG TAB PO SCH (21:22)
[2024-03-30] MEDS: levETIRAcetam 500 MG TAB PO SCH (21:22)
[2024-03-30] MEDS: IPRATROPIUM BROM 0.5 MG/2.5ML INH SOL NEB PRN (21:44)
[2024-03-30] MEDS: ALBUTEROL SULF 2.5 MG/0.5ML(0.5%) NEB SOLN NEB PRN (21:44)
[2024-03-30] MEDS ORDERED: ATORVASTATIN 20 MG TAB PO SCH ×2 (22:00)
[2024-03-30] MEDS: DOBUTamine 1000MCG/ML 250 ML IV SCH (22:39)
[2024-03-30] MEDS: CARVEDILOL 3.125 MG TAB PO SCH (22:40)
[2024-03-31] VITALS (12 sets, daily range): BP systolic 103–119; BP diastolic 63–75; PULSE 65–98; RESP 16–26; TEMP 97.4–98.5; O2SAT 92–100
[2024-03-31 01:10] LABS: Base Excess -1.1 mmol/L (-2.0-3.0)
[2024-03-31 08:54] LABS: Alanine Aminotransferase 15 U/L (7-40); Albumin 3.9 g/dL (3.2-4.8); Alkaline Phosphatase 80 U/L (46-116); Anion Gap 8 (5-15); Aspartate Aminotransferase 23 U/L (13-40); BUN/Creatinine Ratio 22.2 (10.0-20.0); Bilirubin, Total 2.2 mg/dL (0.2-1.0); Blood Urea Nitrogen 20 mg/dL (9-23); Calcium 9.6 mg/dL (8.7-10.4); Carbon Dioxide 22 mmol/L (20-31); Chloride 109 mmol/L (98-107); Glucose 80 mg/dL (74-106); Potassium 4.2 mmol/L (3.5-5.1); Sodium 139 mmol/L (136-145); Total Protein 6.8 g/dL (5.7-8.2)
[2024-03-31] MEDS: PANTOPRAZOLE 40 MG/10 ML VIAL INJ IV SCH (09:33)
[2024-03-31] MEDS: SPIRONOLACTONE 25 MG TAB PO SCH (09:35)
[2024-03-31] MEDS: LISINOPRIL 5 MG TAB PO SCH (09:37)
[2024-03-31] MEDS: EMPAGLIFLOZIN 10 MG TAB PO SCH (09:38)
[2024-03-31] MEDS ORDERED: Dapagliflozin Propanediol (Farxiga) 10 MG TABLET PO SCH (10:00)
[2024-03-31] MEDS ORDERED: ASPirin 81 mg TAB PO SCH (10:00)
[2024-03-31] MEDS ORDERED: METOPROLOL SUCCINATE XL 50 MG TAB PO SCH (10:00)
[2024-03-31] MEDS: QUEtiapine FUMARATE 100 MG TAB PO SCH (10:00)
[2024-03-31 15:00] LABS: Hematocrit 37.1 % (41.0-53.0); Hemoglobin 11.9 g/dL (13.5-17.5); Mean Corpuscular Hemoglobin 24.3 pg (28.0-32.0); Mean Corpuscular Hgb Conc. 32.1 g/dL (32.0-36.0); Mean Corpuscular Volume 75.9 fL (80.0-100.0); Platelet Count (auto) 109 10^3/uL (140-450); Red Blood Cells 4.88 10^6/uL (4.5-5.90); Red Cell Distribution Width 19.3 % (11.8-14.3); White Blood Cell 6.1 10^3/uL (4.4-10.8)
[2024-03-31 15:02] LABS: Basophils % (manual) 0 (0.0-2.0); Blast Cells 0; Metamyelocytes % 0; Myelocytes % 0; Promyelocytes % 0
[2024-03-31 15:26] LABS: Band Neutrophils % (manual) 6; Eosinophils % (manual) 6 (0-7); Lymphocytes % (manual) 18 (10.0-50.0); Monocytes % (manual) 6 (0-12); Reactive Lymphocytes 5
[2024-03-31 15:27] LABS: Large Platelets FEW; Platelet Estimate Decreased; Stomatocytes Few
[2024-03-31 15:28] LABS: Hypochromia Slight
[2024-04-01] VITALS (9 sets, daily range): BP systolic 98–109; BP diastolic 56–71; PULSE 75–92; RESP 15–18; TEMP 97.6–98.6; O2SAT 90–100
[2024-04-01 06:29] LABS: Chloride 104 mmol/L (98-107); Potassium 3.8 mmol/L (3.5-5.1); Sodium 135 mmol/L (136-145)
[2024-04-01 06:30] LABS: Anion Gap 8 (5-15); Calcium 10.1 mg/dL (8.7-10.4); Carbon Dioxide 23 mmol/L (20-31)
[2024-04-01 06:35] LABS: BUN/Creatinine Ratio 21.8 (10.0-20.0); Blood Urea Nitrogen 22 mg/dL (9-23); Glucose 79 mg/dL (74-106)
[2024-04-01 13:47] LABS: INR 1.35 (0.9-1.15)
[2024-04-02] VITALS (13 sets, daily range): BP systolic 98–132; BP diastolic 56–89; PULSE 71–92; RESP 13–20; TEMP 97.8–98.8; O2SAT 96–100
[2024-04-02] MEDS ORDERED: EMPA1TAB PO (17:59)
[2024-04-02] MEDS ORDERED: CARV-214 PO (17:59)
[2024-04-03] VITALS (10 sets, daily range): BP systolic 100–110; BP diastolic 62–69; PULSE 73–99; RESP 17–22; TEMP 79.9–97.8; O2SAT 97–100
== END 2024-04-03 15:29 | disposition home or self-care (01) | DRG 140 ==
LOC: ER 03:38 → TELE 12:02 → TELE-CENTR 18:33
PROVIDERS: ADMIT Nurse Practitioner Family; ATTEND Internal Medicine
PROC: 5A09357 Assistance with Respiratory Ventilation, Less than 24 Consecutive Hours, Continuous Positive Airway Pressure (ICD-10-PCS; principal; 2024-03-30)
PROC: 5A09357 Assistance with Respiratory Ventilation, Less than 24 Consecutive Hours, Continuous Positive Airway Pressure (ICD-10-PCS; 2024-04-01)
PROC: 5A09357 Assistance with Respiratory Ventilation, Less than 24 Consecutive Hours, Continuous Positive Airway Pressure (ICD-10-PCS; 2024-04-02)
DX: J44.1 Chronic obstructive pulmonary disease with (acute) exacerbation (principal); J96.01 Acute respiratory failure with hypoxia; I50.43 Acute on chronic combined systolic (congestive) and diastolic (congestive) heart failure; I31.39 Other pericardial effusion (noninflammatory); I27.20 Pulmonary hypertension, unspecified; I13.0 Hypertensive heart and chronic kidney disease with heart failure and stage 1 through stage 4 chronic kidney disease, or unspecified chronic kidney disease; I48.20 Chronic atrial fibrillation, unspecified; F15.10 Other stimulant abuse, uncomplicated; F17.210 Nicotine dependence, cigarettes, uncomplicated; N18.9 Chronic kidney disease, unspecified; I44.0 Atrioventricular block, first degree; I44.7 Left bundle-branch block, unspecified; I42.7 Cardiomyopathy due to drug and external agent; I07.1 Rheumatic tricuspid insufficiency; R56.9 Unspecified convulsions; Z86.73 Personal history of transient ischemic attack (TIA), and cerebral infarction without residual deficits; Z79.01 Long term (current) use of anticoagulants; Z91.199 Patient's noncompliance with other medical treatment and regimen due to unspecified reason; Z88.8 Allergy status to other drugs, medicaments and biological substances; Z79.899 Other long term (current) drug therapy
CPT/HCPCS: 36415; 36600; 71046; 80048; 80053; 82805; 83735; 83880; 84484; 85007; 85027; 85610; 87081; 93005; 93306; 94640; 94660; 96374; 99291; G0378; J2470

== ENCOUNTER 2024-05-16 06:38 | Inpatient (IN) | payer MEDICAID ==
[~2024-05-16] VITALS: Ht 188 cm; Wt 94.2 kg
[~2024-05-16 06:38] MED LIST changes: -AUG875T PO; +CARV-214 PO; +EMPA1TAB PO; -METO-289 PO
--- NOTE | 2024-05-16 06:53 | ED.PDOC ---
HPI Comments 28 year old male RENU presents to the ED with chief complaint of generalized weakness and syncope. EMS reports patient was showering this morning when he had called for his family due to feeling weak, collapsing to the ground, but supported by family members. EMS relays that since then, patient has remained unresponsive and is normally A/Ox4 according to family despite having speech deficits from a previous CVA. EMS states patient's 12 lead indicated Afib with RVR and they had provided the patient 300mL of NS via IV. Patient unable to respond to questioning at this time, only able to move eyes. Time Seen by MD: 06:48 Reviewed Notes: Nurses Notes, Breast Worker Notes, Medications, Allergies Allergies: Coded Allergies: Nitroglycerin (Verified Allergy, Unknown, 03/13/24) Home Meds Active Scripts Empagliflozin (Jardiance) 10 Mg Tab, 10 MG PO DAILY for 30 Days, #30 TAB 3 Refills Prov:SHADE ROWLEY DO 04/02/24 Carvedilol (COREG) 3.125 Mg Tab, 3.125 MG PO Q12HR for 30 Days, #60 TAB 4 Refills Prov:SHADE ROWLEY DO 04/02/24 Hydrocodone-Acetaminophen (Hydrocodone Bitartrate/AC 5-325 mg) 1 Tab Tab, 1 TAB PO Q8HP PRN for 5 Days, #15 TAB Prov:JASSON [place] CLERICAL ADMINISTRATIVE ASSISTANT 03/16/24 Bumetanide (Bumetanide) 1 Mg Tab, 1 MG PO QAM for 30 Days, #30 TAB 1 Refill Prov:JASSON CLEVELAND CLERICAL ADMINISTRATIVE ASSISTANT 03/16/24 Spironolactone (Aldactone) 25 Mg Tab, 12.5 MG PO DAILY for 30 Days, #15 TAB Prov:SHELBY [place]CA[place] RESIDENT 02/27/24 Reported Medications Valproic Acid (Valproic Acid) 250 Mg Cap, 250 MG PO, CAP 03/14/24 Levetiracetam (KEPPRA TABLET) 500 Mg Tb, 500 MG PO BID, TAB 03/14/24 Pantoprazole Sodium (PANTOPRAZOLE SODIUM) 40 Mg Inj, 40 MG IV DAILY, INJ 03/03/24 Dapagliflozin Propanediol (Farxiga) 10 Mg Tab, 10 MG PO DAILY, TAB 03/03/24 Quetiapine Fumerate (QUETIAPINE FUMARATE) 100 Mg Tab, 1 TAB PO DAILY 01/25/24 Levetiracetam (Levetiracetam) 500 Mg Tab, 1 TAB PO BID 01/25/24 Lisinopril (Lisinopril) 2.5 Mg Tab, 1 TAB PO DAILY 01/25/24 Apixaban Base (ELIQUIS) 5 Mg Tab, 1 TAB PO BID 01/25/24 Atorvastatin Calcium (ATORVASTATIN CALCIUM) 40 Mg Tab, 1 TAB PO DAILY 01/25/24 Information Source: Patient, Emergency Med Personnel Mode of Arrival: EMS Severity: Moderate Timing: Hours Duration: Since onset Prehospital treatment: 12 Lead EKG, IVF Onset: At Rest Cardiac Risk Factors: HTN, Drugs PE Risk Factors: None History of: NM Modifying Factors: Nothing Associated Signs and Symptoms: Syncope Past Medical History PAST MEDICAL HISTORY: AFIB, CHF, CKF, COPD, CVA, HTN, NM, Seizures Surgical History: Denies all surgeries Family History Family History: Reviewed,noncontributory to illness Social History Smoker: Cigarettes Alcohol: Occasionally Drugs: Methamphetamine Lives In: Home Constitutional: reports: weakness; denies: chills, diaphoresis, fatigue, fever, malaise, sweats, others EENTM: denies: blurred vision, double vision, ear bleeding, ear discharge, ear drainage, ear pain, ear ringing, eye pain, eye redness, hearing loss, mouth pain, mouth swelling, nasal discharge, nose bleeding, nose congestion, nose pain, photophobia, tearing, throat pain, throat swelling, voice changes, others Respiratory: denies: cough, hemoptysis, orthopnea, SOB at rest, shortness of breath, SOB with excertion, stridor, wheezing, others Cardiovascular: reports: syncope; denies: chest pain, dizzy spells, diaphoresis, Dyspnea on exertion, edema, irregular heart beat, left arm pain, lightheadedness, palpitations, PND, others Gastrointestinal: denies: abdomen distended, abdominal pain, blood streaked bowels, constipated, diarrhea, dysphagia, difficulty swallowing, hematemesis, melena, nausea, poor appetite, poor fluid intake, rectal bleeding, rectal pain, vomiting, others Genitourinary: denies: burning, dysuria, flank pain, frequency, hematuria, incontinence, penile discharge, penile sore, pain, testicle pain, testicle swelling, urgency, others Neurological: denies: dizziness, fainting, headache, left sided numbness, left sided weakness, numbness, paresthesia, pre-existing deficit, right sided numbness, right sided weakness, seizure, speech problems, tingling, tremors, weakness, others Musculoskeletal: denies: back pain, gout, joint pain, joint swelling, muscle pain, muscle stiffness, neck pain, others Integumetry: denies: bruises, change in color, change in hair/nails, dryness, laceration, lesions, lumps, rash, wounds, others Allergic/Immunocompromised: denies: Difficulty Healing, Frequent Infections, Hives, Itching, others Hematologic/Lymphatic: denies: anemia, blood clots, easy bleeding, easy bruising, swollen glands, others Endocrine: denies: excessive hunger, excessive sweating, excessive thirst, excessive urination, flushing, intolerance to cold, intolerance to heat, unexplained weight gain, unexplained weight loss, others Psychiatric: denies: anxiety, bipolar disorder, depression, hopeless, panic disorder, schizophrenia, sleepless, suicidal, others All Other Systems: Reviewed and Negative Physical Exam General Appearance: Moderate Distress, Normal HEENT: Normal ENT Inspection, PERRL/EOMI Neck: Full Range of Motion, Non-Tender, Normal, Normal Inspection Respiratory: Chest Non-Tender, No Accessory Muscle Use, No Respiratory Distress, Other (Coarse breath sounds) Cardiovascular: No Edema, No JVD, No Murmur, No Gallop, Normal Peripheral Pulses, Regular Rate/Rhythm Breast Exam: Deferred Gastrointestinal: No Organomegaly, Non Tender, No Pulsatile Mass, Normal Bowel Sounds, Soft Genitalia: Deferred Pelvic: Deferred Rectal: Deferred Extremities: No calf tenderness, Normal capillary refill, Non-tender, No pedal edema Musculoskeletal : Apperance: Normal Neurologic: Disoriented Cerebellar Function: NOT DONE Reflexes: NOT DONE Skin: Dry, Normal Color, Warm Peripheral Pulses: 3+ Radial (R), 3+ Radial (L) Lymphatic: No Adenopathy EKG EKG : Pulse Rate (adult): 125 [place]: Normal Cardiac Rhythm: Afib Block: None Hypertrophy: None ST: Normal Was a procedure done? Was a procedure done?: No CP Differential Dx Differential Diagnosis: A-fib, A-Flutter, Angina, Anxiety / Panic Attack, Atrial Dysrhythmia, Electrolyte Disorder X-Ray, Labs, Meds, VS Vital Signs Date Time Temp Pulse Resp B/P (MAP) Pulse Ox O2 Delivery O2 Flow Rate FiO2 05/16/24 07:25 93 05/16/24 07:02 97.8 135 13 117/93 (101) 97 97.8 05/16/24 06:53 97.6 140 16 131/78 (95) 98 05/16/24 06:53 125 05/16/24 06:39 125 Patient disoriented. He is moving his eyes when asked questions. EKG shows atrial fibrillation. Chronic history. Possible CHF. Was given Lasix. Reviewed his previous visit. Used to use drugs. Cardiomyopathy. Unable to get any history from the patient. Symptoms started when he was taking a shower. No family at bedside. Continue cardiac monitoring. Chest XR: FINDINGS: Lines and Tubes: None Lungs: The left costophrenic angle is obscured from view. Is no gross lung consolidation. Pleura: No effusion.No pneumothorax. Cardiomediastinal contours: Stable cardiomegaly. Bones: No acute osseous abnormality. IMPRESSION: 1. No gross acute cardiopulmonary disease. 2. Stable cardiomegaly. Images Reviewed?: Images reviewed and evaluated by me Time of 1ST Reevaluation: 07:48 Reevaluation 1ST: Unchanged Patient Education/Counseling: Diagnosis, Treatment Family Education/Counseling: No Family Present Departure 1 Departure Time of Disposition: 07:23 Impression: Primary Impression: Metabolic encephalopathy Additional Impressions: Atrial fibrillation Qualified Codes: I48.11 - Longstanding persistent atrial fibrillation CHF (congestive heart failure) Qualified Codes: I50.43 - Acute on chronic combined systolic (congestive) and diastolic (congestive) heart failure Disposition: ADMITTED INPATIENT Admit to: Med Surg Condition: Guarded Critical Care Note Critical Care Time?: Yes (90 min-critical care time only) Stability Stability form required: No Heart Score Heart Score: Heart Score Response (Comments) Value History Highly Suspicious 2 EKG Repolarization Disturb 1 Age <45 0 Risk Factors >3 or Hx ASHD 2 Troponin Normal limit 0 Total 5 I personally scribed for PHUONG OSHEA MD ([email or web address]) on 05/16/24 at 06:53. Electronically submitted by Denny Reed ([email or web address]). I personally scribed for PHUONG OSHEA MD ([email or web address]) on 05/16/24 at 08:15. Electronically submitted by Denny Reed ([email or web address]). PHUONG OSHEA MD May 16, 2024 06:53
--- NOTE | 2024-05-16 06:56 | ECG ---
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
--- NOTE | 2024-05-16 07:50 | DVH ---
CHEST RADIOGRAPH Indication:sob Technique: Single frontal view of the chest was obtained Comparison: XY CHEST XRAY 1 VIEW on DOS: 03/16/24, XY CHEST XRAY 1 VIEW on DOS: 03/15/24 FINDINGS: Lines and Tubes: None Lungs: The left costophrenic angle is obscured from view. Is no gross lung consolidation. Pleura: No effusion.No pneumothorax. Cardiomediastinal contours: Stable cardiomegaly. Bones: No acute osseous abnormality. IMPRESSION: 1. No gross acute cardiopulmonary disease. 2. Stable cardiomegaly. HS:Y
[2024-05-16 09:00] VITALS: PULSE 92; RESP 14; O2SAT 96
[2024-05-16] MEDS: METOPROLOL TARTRATE 1MG/1ML-5ML VIAL IV ONE (09:00)
[2024-05-16] MEDS: FUROSEMIDE 40 MG/4 ML VIAL IV ONE (09:27)
[2024-05-16 09:30] LABS: Basophils # (auto) 0 10 ^3/uL (0-0.2); Hemoglobin 10.6 g/dL (13.5-17.5)
[2024-05-16] MEDS ORDERED: ZOLPIDEM TARTRATE 5 MG TAB PO PRN (09:30)
[2024-05-16 09:33] LABS: Basophils % (auto) 0.8 % (0.0-2.0); Eosinophils # (auto) 0 10 ^3/uL (0-0.8); Eosinophils % (auto) 1.1 % (0.0-7.0); Hematocrit 34.2 % (41.0-53.0); Lymphocytes # (auto) 0.9 10 ^3/uL (0.4-5.4); Lymphocytes % (auto) 20.9 % (10.0-50.0); Mean Corpuscular Hgb Conc. 31.1 g/dL (32.0-36.0); Mean Corpuscular Volume 77.2 fL (80.0-100.0); Monocytes # (auto) 0.4 10 ^3/uL (0-1.3); Monocytes % (auto) 9.6 % (0.0-12.0); Neutrophils # (auto) 2.9 10 ^3/uL (1.6-8.6); Neutrophils % (auto) 67.6 % (37.0-80.0); Nucleated Red Blood Cells % 0.1 %; Platelet Count (auto) 161 10^3/uL (140-450); Red Blood Cells 4.43 10^6/uL (4.5-5.90); White Blood Cell 4.3 10^3/uL (4.4-10.8)
[2024-05-16 09:35] LABS: Red Cell Distribution Width 23.1 % (11.8-14.3)
[2024-05-16] MEDS ORDERED: HYDROcodone-ACET 5/325MG TAB PO PRN (09:45)
[2024-05-16 09:50] LABS: Anion Gap 11 (5-15); Carbon Dioxide 20 mmol/L (20-31); Chloride 107 mmol/L (98-107); Potassium 3.4 mmol/L (3.5-5.1); Sodium 138 mmol/L (136-145)
[2024-05-16 09:51] LABS: Calcium 9.3 mg/dL (8.7-10.4)
--- NOTE | 2024-05-16 09:51 | DVH ---
EXAM: CT STROKE CTH HISTORY: r/o stroke COMPARISON: CT HEAD WITHOUT CONTRAST on DOS: 02/15/24, CT HEAD WITHOUT CONTRAST on DOS: 01/27/24 TECHNIQUE: Axial images of the head were obtained and reformatted in coronal and sagittal planes. All CT scans at this medical facility are performed using dose modulation techniques as appropriate t o a performed exam including the following: Automated exposure control was utilized; adjustment of th e MA and/or KV according to patient size; and use of iterative reconstruction technique. CT Dose: CTDI volume is 69.15 mGy. Dose-length product is 1224.01 mGy*cm FINDINGS: There is a stable moderate size chronic cortical infarct in the left frontal lobe with associated enc ephalomalacia. There is slight ex vacuo dilatation of the left lateral ventricle. There is no evidenc e of acute intracranial hemorrhage, mass, mass effect midline shift. There is no hydrocephalus or ext ra-axial fluid collection. The visualized paranasal sinuses and mastoid air cells are clear. The calvarium is intact. IMPRESSION: 1. No acute intracranial process. 2. Stable moderate size chronic cortical infarct in the left frontal lobe. HS:Y
[2024-05-16 09:56] LABS: BUN/Creatinine Ratio 18.4 (10.0-20.0); Blood Urea Nitrogen 19 mg/dL (9-23); Glucose 99 mg/dL (74-106)
[2024-05-16] MEDS: SPIRONOLACTONE 25 MG TAB PO SCH (10:00)
[2024-05-16] MEDS ORDERED: LISINOPRIL 5 MG TAB PO SCH (10:00)
[2024-05-16] MEDS ORDERED: METOPROLOL TARTRATE 25 MG TAB PO SCH (10:00)
[2024-05-16 10:24] LABS: Anisocytosis Slight; Hypochromia Slight; Platelet Estimate Adequate
[2024-05-16] MEDS: LISINOPRIL 5 MG TAB PO SCH (11:06)
--- NOTE | 2024-05-16 11:22 | DVHHP2 ---
History of Present Illness Reason for Visit: Weakness suspected Seizure History of Present Illness 28 yo male hstory CHF, A-fib, COPD drug use and intermittent non compliance suspected weakness secondary to seizure patient was evaluated with a-fib for and weakness patient recommended for medical evaluation and rate control with in patient admission Cardiovascular: AFIB, CHF Pulmonary: COPD Review of Systems Constitutional: Yes: Weakness; No: Fever, Chills, Sweats, Malaise, Other Eyes: No: Pain, Vision change, Conjunctivae inflammation, Eyelid inflammation, Other, Redness ENT: No: Ear pain, Ear discharge, Nose pain, Nose discharge, Nose congestion, Mouth pain, Mouth swelling, Throat pain, Throat swelling, Other Respiratory: No: Cough, Dry, Shortness of breath, SOB with excertion, Wheezing, Hemoptysis, Pleuritic Pain, Sputum, Wheezing, Other Cardiovascular: Palpitations; No: Chest Pain, Orthopnea, Paroxysmal Noc. Dyspnea, Edema, Lt Headedness, Other Gastrointestinal: No: Nausea, Vomiting, Abdominal Pain, Diarrhea, Constipation, Melena, Hematochezia, Other Genitourinary: No Dysuria, No Frequency, No Incontinence, No Hematuria, No Retention, No Other Musculoskeletal: No: other, neck pain, shoulder pain, arm pain, back pain, hand pain, leg pain, foot pain Skin: No: Rash, Lesions, Jaundice, Bruising, Other Neurological: Weakness, Seizures Allergies: Coded Allergies: Nitroglycerin (Verified Allergy, Unknown, 03/13/24) Medications Current Medications Medications Dose Ordered Sig/Mickey Route Start Time Stop Time Status Last Admin Dose Admin Aspirin 81 mg DAILY PO 05/16/24 10:00 Clopidogrel Bisulfate 75 mg DAILY PO 05/16/24 10:00 Atorvastatin Calcium 40 mg HS PO 05/16/24 22:00 Acetaminophen 650 mg Q6HP PRN PO 05/16/24 09:30 Zolpidem Tartrate 5 mg QHSP PRN PO 05/16/24 09:30 Docusate Sodium 100 mg DAILY PO 05/16/24 10:00 Ondansetron HCl 4 mg Q4HP PRN IV 05/16/24 09:30 Apixaban 5 mg BID PO 05/16/24 10:00 Bumetanide 1 mg QAM PO 05/17/24 07:00 Carvedilol 3.125 mg Q12HR PO 05/16/24 10:00 Empaglifozin 10 mg DAILY PO 05/16/24 10:00 Acetaminophen/ Hydrocodone Bitart 1 tab Q8HP PRN PO 05/16/24 09:45 Levetiracetam 500 mg BID PO 05/16/24 10:00 Pantoprazole Sodium 40 mg DAILY IV 05/16/24 10:00 Quetiapine Fumarate 100 mg DAILY PO 05/16/24 10:00 Spironolactone 12.5 mg DAILY PO 05/16/24 10:00 Lisinopril 2.5 mg DAILY PO 05/16/24 11:06 Exam Vital Signs Vital Signs Date Time Temp Pulse Resp B/P (MAP) Pulse Ox O2 Delivery O2 Flow Rate FiO2 05/16/24 09:27 116/90 05/16/24 09:00 109 05/16/24 08:33 18 97 05/16/24 07:02 97.8 97.8 General Appearance: Alert, Oriented X3 HEENT: Atraumatic, PERRLA Respiratory: Clear to auscultation, Normal air movement Cardiovascular: Regular rate, Normal S1, Normal S2 Abdominal: Normal bowel sounds, Soft, No tenderness Extremities: No clubbing, No cyanosis Skin: No rashes, No breakdown Neuro: Normal gait, Normal speech Psych/Mental Status: Mood NL Labs/Xrays Labs Test 05/16/24 10:22 05/16/24 09:19 Range/Units Troponin I High Sensitivity 31 </=54 ng/L White Blood Count 4.3 L 4.4-10.8 10^3/uL Red Blood Count 4.43 L 4.5-5.90 10^6/uL Hemoglobin 10.6 L 13.5-17.5 g/dL Hematocrit 34.2 L 41.0-53.0 % Mean Corpuscular Volume 77.2 L 80.0-100.0 fL Mean Corpuscular Hemoglobin 24.0 L 28.0-32.0 pg Mean Corpuscular Hemoglobin Concent 31.1 L 32.0-36.0 g/dL Red Cell Distribution Width 23.1 H 11.8-14.3 % Platelet Count 161 140-450 10^3/uL Mean Platelet Volume 8.7 6.9-10.8 fL Neutrophils (%) (Auto) 67.6 37.0-80.0 % Lymphocytes (%) (Auto) 20.9 10.0-50.0 % Monocytes (%) (Auto) 9.6 0.0-12.0 % Eosinophils (%) (Auto) 1.1 0.0-7.0 % Basophils (%) (Auto) 0.8 0.0-2.0 % Neutrophils # (Auto) 2.9 1.6-8.6 10 ^3/uL Lymphocytes # (Auto) 0.9 0.4-5.4 10 ^3/uL Monocytes # (Auto) 0.4 0-1.3 10 ^3/uL Eosinophils # (Auto) 0 0-0.8 10 ^3/uL Basophils # (Auto) 0 0-0.2 10 ^3/uL Nucleated Red Blood Cells 0.1 % Platelet Estimate Adequate Clumped Platelets Moderate Hypochromasia (manual) Slight Anisocytosis (manual) Slight Microcytosis Slight Sodium Level 138 136-145 mmol/L Potassium Level 3.4 L 3.5-5.1 mmol/L Chloride Level 107 98-107 mmol/L Carbon Dioxide Level 20 20-31 mmol/L Anion Gap 11 5-15 Blood Urea Nitrogen 19 9-23 mg/dL Creatinine 1.03 0.700-1.30 mg/dL Glomerular Filtration Rate Calc 100 >90 mL/min BUN/Creatinine Ratio 18.4 10.0-20.0 Serum Glucose 99 74-106 mg/dL Calcium Level 9.3 8.7-10.4 mg/dL Assessment/Plan Assessment/Plan Admit Med/surge A-fib in the setting suspected noncomplaince IV hydration currently rate controlled worsened in setting breakthrough seizures continue rate control CHF monitor for fluid overload and acute changes in breathing monitor home meds issues with compliance slowly restart meds as tolerated Seizures suspected break through Keppra bid restarted patient currently stable possible threshold change from drug use Plan discussed with: Patient My Orders Orders - RYAN LORENZANA MD Procedure Category Date Status Time Ct Head Cva CT 05/16/24 Resulted 09:19 Code Status CODE 05/16/24 Transmitted 09:22 Vital Signs ERLIN 05/16/24 In Process 09:22 Laborer [place] ERLIN 05/16/24 In Process 09:22 Cardiac DIET 05/16/24 Transmitted Diet-2gna,Lofat,Lochol Breakfast Aspirin Tablet PHA 05/16/24 In Process 10:00 Acetaminophen Tablet PHA 05/16/24 In Process (Tylenol Tablet) 09:30 Zolpidem Tartrate PHA 05/16/24 In Process (Ambien) 09:30 Docusate Sodium PHA 05/16/24 In Process Capsule (Colace 10:00 Complete Blood Count LAB 05/17/24 Verified 04:00 Basic Metabolic Panel LAB 05/17/24 Verified 04:00 Magnesium LAB 05/17/24 Verified 04:00 Echo 2d Mode Cardiac US 05/16/24 Logged DOP 09:22 Ondansetron Hcl PHA 05/16/24 In Process (Zofran) 09:30 Electrocardigram EKG 05/16/24 Logged 09:22 Cardiac ERLIN 05/16/24 In Process Rehabilitation - Outpa Stat Ekg For Chest ERLIN 05/16/24 In Process Pain 09:22 Notify Of Changes ERLIN 05/16/24 In Process From Base 09:22 E Learning Designer For [facility] 05/16/24 In Process 24 Hours 09:22 Emergency Dysrhythmia [facility] 05/16/24 In Process Protocol 09:22 Rhythm Strips Once [facility] 05/16/24 In Process Every Shift 09:22 Oxygen By Nasal RT 05/16/24 Transmitted Cannula 09:22 Drug Screen LAB 05/16/24 Logged 09:22 Clopidogrel Bisulfate PHA 05/16/24 In Process (Plavix) 10:00 Atorvastatin (Lipitor) PHA 05/16/24 In Process 22:00 Apixaban (Eliquis) PHA 05/16/24 In Process 10:00 Bumetanide Tablet PHA 05/17/24 In Process (Bumex Tablet) 07:00 Carvedilol Tablet PHA 05/16/24 In Process (Coreg Tablet) 10:00 Empagliflozin PHA 05/16/24 In Process (Jardiance) 10:00 Hydrocodone-Acet PHA 05/16/24 In Process 5/325mg Tab (Clive 09:45 Levetiracetam Tablet PHA 05/16/24 In Process (Keppra Tablet) 10:00 Pantoprazole PHA 05/16/24 In Process (Protonix) 10:00 Quetiapine Fumarate PHA 05/16/24 In Process Tablet (Seroquel Tab 10:00 Spironolactone PHA 05/16/24 In Process (Aldactone) 10:00 Lisinopril Tablet PHA 05/16/24 In Process (Zestril Tablet) 11:06 Admit ADMIT 05/16/24 Transmitted 11:15 Problem List: (1) COPD (chronic obstructive pulmonary disease) (2) Methamphetamine abuse (3) Atrial fibrillation (4) Metabolic encephalopathy (5) CHF (congestive heart failure) (6) History of CHF (congestive heart failure) Date of Service: May 16, 2024 Billing Provider: RYAN LORENZANA MD Common Visit Codes: 95681-ERXUSFS INP/OBS CARE (HIGH) RYAN LORENZANA MD May 16, 2024 11:22
[2024-05-16] MEDS: ASPirin 81 mg TAB PO SCH (12:25)
[2024-05-16] MEDS: DOCUSATE SOD 100 MG CAP PO SCH (12:25)
[2024-05-16] MEDS: PANTOPRAZOLE 40 MG/10 ML VIAL INJ IV SCH (12:25)
[2024-05-16] MEDS: EMPAGLIFLOZIN 10 MG TAB PO SCH (12:26)
[2024-05-16] MEDS: APIXABAN 5 MG TAB PO SCH (12:26)
[2024-05-16] MEDS: levETIRAcetam 500 MG TAB PO SCH (12:26)
[2024-05-16] MEDS: CARVEDILOL 3.125 MG TAB PO SCH (12:26)
[2024-05-16] MEDS: CLOPIDOGREL BISULFATE 75 MG TAB PO SCH (12:27)
[2024-05-16] MEDS: QUEtiapine FUMARATE 100 MG TAB PO SCH (12:27)
[2024-05-16 12:35] LABS: Amphetamine Screen, Urine Pos (NEGATIVE); Barbiturate Scree,Urine Neg (NEGATIVE); Benzodiazephine Screen, Urine Neg (NEGATIVE); Cocaine Screen, Urine Neg (NEGATIVE); Opiate Scree,Urine Neg (NEGATIVE); Phencyclidine Screen, Urine Neg (NEGATIVE)
[2024-05-16 12:36] LABS: Cannabinoid Screen, Urine Neg (NEGATIVE)
--- NOTE | 2024-05-16 18:47 | ECG ---
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
[2024-05-16 19:48] VITALS: PULSE 94; RESP 14; O2SAT 98
[2024-05-16] MEDS: MORPHINE SULFATE INJ 2 MG/ml SYRG IV PRN (20:47)
[2024-05-16] MEDS ORDERED: ATORVASTATIN 20 MG TAB PO SCH (22:00)
[2024-05-16] MEDS: ACETAMINOPHEN 325 MG TAB PO PRN (22:04)
[2024-05-16] MEDS: ONDANSETRON HCL 4 MG/2 ML VIAL IV PRN (22:16)
[2024-05-16] MEDS: ATORVASTATIN 20 MG TAB PO SCH (22:51)
[2024-05-17] VITALS (35 sets, daily range): BP systolic 77–133; BP diastolic 48–96; PULSE 65–122; RESP 8–27; TEMP 97.3–99.5; O2SAT 70–100
[2024-05-17 03:43] LABS: Base Excess -5.2 mmol/L (-2.0-3.0)
--- NOTE | 2024-05-17 04:15 | DVH ---
EXAM: CT HEAD WITHOUT CONTRAST INDICATION: change in mentation TECHNIQUE: Axial images of the head were obtained and reformatted in coronal and sagittal planes. All CT scans at this medical facility are performed using dose modulation techniques as appropriate t o a performed exam including the following: Automated exposure control was utilized; adjustment of th e MA and/or KV according to patient size; and use of iterative reconstruction technique. CT Dose: CTDI volume is 69.15 mGy. Dose-length product is 1224.01 mGy*cm COMPARISON: CT STROKE CTH on DOS: 05/16/24, CT CHEST WITHOUT CONTRAST on DOS: 02/23/24, CT HEAD WITHOU T CONTRAST on DOS: 02/15/24, CT HEAD WITHOUT CONTRAST on DOS: 01/27/24, CT STROKE CTH on DOS: 05/16/24 FINDINGS: There is a stable moderate size chronic cortical infarct in the left frontal lobe with associated enc ephalomalacia. There is slight ex vacuo dilatation of the left lateral ventricle. There is no evidenc e of acute intracranial hemorrhage, mass, mass effect midline shift. There is no hydrocephalus or ext ra-axial fluid collection. The visualized paranasal sinuses and mastoid air cells are clear. The calvarium is intact. IMPRESSION: 1. No acute intracranial process. 2. Stable moderate size chronic cortical infarct in the left frontal lobe.
[2024-05-17] MEDS: BUMETANIDE 1 MG TAB PO SCH (07:00)
[2024-05-17 09:00] LABS: Potassium 3.9 mmol/L (3.5-5.1); Sodium 137 mmol/L (136-145)
[2024-05-17 09:01] LABS: Calcium 9.4 mg/dL (8.7-10.4); Carbon Dioxide 21 mmol/L (20-31)
[2024-05-17 09:04] LABS: Anion Gap 12 (5-15); Chloride 104 mmol/L (98-107)
[2024-05-17 09:06] LABS: BUN/Creatinine Ratio 16.2 (10.0-20.0); Blood Urea Nitrogen 22 mg/dL (9-23); Glucose 89 mg/dL (74-106)
[2024-05-17 09:07] LABS: Magnesium 1.7 mg/dL (1.6-2.6)
--- NOTE | 2024-05-17 10:26 | DVHINCON2 ---
Date Seen: May 17, 2024 Referring Physician MD Austin Reason for Consultation A-fib with RVR History of Present Illness This is a 28-year-old male who presented to the emergency room via EMS with a chief complaint of generalized weakness. Per patient he feels extreme lethargy associated with chest pain described as substernal, radiating to his right inframammary area, pressure-like, and unprovoked. He also reports a recent admission to a hospital in [place], [place] given an acute exacerbation of CHF where he required endotracheal intubation and recently discharged home and his mother has been caring for him. He is unable to state if he has been compliant with his medical therapy at home. A 12-lead electrocardiogram revealed an atrial fibrillation rhythm with rapid ventricular rate. At time of assessment the patient displayed an atrial fibrillation rhythm at a controlled rate. He was also found with O2 via simple mask. 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 Of note, reports he has a new unknown balloon dipper in [place], [place]. Past Medical History Past medical history reviewed. No other significant than mentioned above. Past Surgical History Past surgical history reviewed. No other significant than mentioned above. Family History: Patient reports no known family medical history. Family History Family history reviewed. Social History Denies the use of alcohol or tobacco use. States he quit methamphetamines a month ago. Admits to cannabis edible consumption. Allergies: Coded Allergies: Nitroglycerin (Verified Allergy, Unknown, 03/13/24) Home Meds Active Scripts Empagliflozin (Jardiance) 10 Mg Tab, 10 MG PO DAILY for 30 Days, #30 TAB 3 Refills Prov:ROWLEYVESNA BrandonMY T DO 04/02/24 Carvedilol (COREG) 3.125 Mg Tab, 3.125 MG PO Q12HR for 30 Days, #60 TAB 4 Refills Prov:ROWLEYVESNASHADE T DO 04/02/24 Hydrocodone-Acetaminophen (Hydrocodone Bitartrate/AC 5-325 mg) 1 Tab Tab, 1 TAB PO Q8HP PRN for 5 Days, #15 TAB Prov:JASSON CLEVELAND PUBLIC WORKS DIRECTOR 03/16/24 Bumetanide (Bumetanide) 1 Mg Tab, 1 MG PO QAM for 30 Days, #30 TAB 1 Refill Prov:JASSON CLEVELAND PUBLIC WORKS DIRECTOR 03/16/24 Spironolactone (Aldactone) 25 Mg Tab, 12.5 MG PO DAILY for 30 Days, #15 TAB Prov:SHELBY LANCASTER RESIDENT 02/27/24 Reported Medications Valproic Acid (Valproic Acid) 250 Mg Cap, 250 MG PO, CAP 03/14/24 Levetiracetam (KEPPRA TABLET) 500 Mg Tb, 500 MG PO BID, TAB 03/14/24 Pantoprazole Sodium (PANTOPRAZOLE SODIUM) 40 Mg Inj, 40 MG IV DAILY, INJ 03/03/24 Dapagliflozin Propanediol (Farxiga) 10 Mg Tab, 10 MG PO DAILY, TAB 03/03/24 Quetiapine Fumerate (QUETIAPINE FUMARATE) 100 Mg Tab, 1 TAB PO DAILY 01/25/24 Levetiracetam (Levetiracetam) 500 Mg Tab, 1 TAB PO BID 01/25/24 Lisinopril (Lisinopril) 2.5 Mg Tab, 1 TAB PO DAILY 01/25/24 Apixaban Base (ELIQUIS) 5 Mg Tab, 1 TAB PO BID 01/25/24 Atorvastatin Calcium (ATORVASTATIN CALCIUM) 40 Mg Tab, 1 TAB PO DAILY 01/25/24 Home Meds Home medications reviewed. Current Medications Current Medications Medications (Trade) Dose Ordered Sig/Mickey Route PRN Reason Start Time Stop Time Status Last Admin Atorvastatin Calcium (Lipitor) 40 mg HS PO 05/16/24 22:00 05/16/24 11:45 DC Bumetanide (Bumex Tablet) 1 mg QAM PO 05/17/24 07:00 Lisinopril (Zestril Tablet) 2.5 mg DAILY PO 05/16/24 11:06 Atorvastatin Calcium (Lipitor) 40 mg HS PO 05/16/24 22:00 05/16/24 22:51 Morphine Sulfate 2 mg Q4HPRN PRN IV SEVERE PAIN (7-10 PAIN SCALE) 05/16/24 20:45 05/17/24 04:33 Review of Systems Constitutional: Generalized weakness Ears, Nose, & Throat: No symptom reported Eyes: No symptom reported Neurological: No symptoms reported Pulmonary/Respiratory: No symptom reported Cardiovascular: Chest pain Gastrointestinal: No symptom reported Genitourinary: No symptom reported Musculoskeletal: No symptom reported Skin: No symptom reported Psychiatric: No symptom reported Endocrine: No symptom reported Hemotologic/Lymphatic: No symptom reported Vital Signs Vital Signs Date Time Temp Pulse Resp B/P (MAP) Pulse Ox O2 Delivery O2 Flow Rate FiO2 05/17/24 08:00 97.3 104 22 111/71 (84) 97 97.3 05/17/24 04:30 Simple Mask* 6 50 Physical Exam General Appearance: Cooperative. Mild shortness of breath Head Exam: Normal inspection Neck Exam: Normal inspection. Non-tender. Normal alignment Pulmonary/Respiratory: Chest non-tender. Diminished bilateral breath sounds. O2 via simple mask Cardiovascular/Chest: Irregularly irregular rate and rhythm. S1, S2. Atrial fibrillation, controlled rate. No murmurs. No JVD. Peripheral Pulses: 2+ Radial (R). 2+ Radial (L). 2+ Pedal (R). 2+ Pedal (L) Abdominal Exam: Normal bowel sounds. Soft. Nontender. No hepatospenomegaly. No masses Ankle Exam: Negative ankle edema Lower extremities: Negative lower extremity edema Neuro/Mental Status: A&O x3. Coherent Thoughts/Psych: Normal thought pattern. Poor historian Appearance: Mild shortness of breath Skin Exam: Normal inspection. Normal color. Warm. Dry Labs/Diagnostic Data Labs Test 05/17/24 08:19 05/17/24 03:39 05/17/24 03:16 05/16/24 12:49 Range/Units Sodium Level 137 136-145 mmol/L Potassium Level 3.9 3.5-5.1 mmol/L Chloride Level 104 98-107 mmol/L Carbon Dioxide Level 21 20-31 mmol/L Anion Gap 12 5-15 Blood Urea Nitrogen 22 9-23 mg/dL Creatinine 1.36 H 0.700-1.30 mg/dL Glomerular Filtration Rate Calc 72 >90 mL/min BUN/Creatinine Ratio 16.2 10.0-20.0 Serum Glucose 89 74-106 mg/dL Calcium Level 9.4 8.7-10.4 mg/dL Magnesium Level 1.7 1.6-2.6 mg/dL Blood Gas Specimen Type Arterial Blood Gas Sample Site Left radial Blood Gas Patient Temperature 37.0 Arterial Blood Date Drawn [id number] Arterial Blood pH 7.444 7.350-7.450 Arterial Blood Partial Pressure CO2 25.9 L 35.0-48.0 mmHg Arterial Blood Partial Pressure O2 206.2 H 83.0-108.0 mmHg Arterial Blood HCO3 17.4 L 21.0-28.0 mmol/L Arterial Blood Oxygen Saturation 99.3 H 94.0-98.0 % Arterial Blood Base Excess -5.2 L -2.0-3.0 mmol/L Arterial Blood Oxyhemoglobin 98.1 H 94.0-98.0 % Arterial Blood Carboxyhemoglobin 0.8 0.5-1.5 % Arterial Blood Methemoglobin 0.4 0.0-1.5 % Clement Test Yes Blood Gas Total Hemoglobin 12.30 L 13.5-17.5 g/dL Blood Gas Liter Flow 6.00 Blood Gas Modality Mask - simple FiO2 % 35.0 POC Glucose 84 70-106 mg/dl Troponin I High Sensitivity 25 </=54 ng/L Test 05/16/24 12:00 05/16/24 09:19 Range/Units Urine Opiates Screen Neg NEGATIVE Urine Fentanyl Screen Neg NEGATIVE Urine Barbiturates Screen Neg NEGATIVE Urine Phencyclidine Screen Neg NEGATIVE Urine Amphetamines Screen Pos NEGATIVE Urine Benzodiazepines Screen Neg NEGATIVE Urine Cocaine Screen Neg NEGATIVE Urine Cannabinoids Screen Neg NEGATIVE Eosinophils (%) (Auto) 1.1 0.0-7.0 % Eosinophils # (Auto) 0 0-0.8 10 ^3/uL Basophils # (Auto) 0 0-0.2 10 ^3/uL Nucleated Red Blood Cells 0.1 % Platelet Estimate Adequate Clumped Platelets Moderate Hypochromasia (manual) Slight Anisocytosis (manual) Slight Microcytosis Slight Assessment Acute on chronic decompensated end-stage HFrEF, NYHA Class IV 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 Washington): * Echocardiogram (03/31/24) revealed EF 10% * End-stage/dilated cardiomyopathy with RV enlargement * GDMT for CHF. Uptitrate as tolerated * Preload and afterload reduction. No indication for dobutamine given tachycardia * Strict I&Os. Fluid restrictions. Daily weight. 2-g Na diet * NOAC therapy, Eliquis BID * [id number] Score 3. HAS-BLED Score 1 * Monitor ECG changes and notify * Follow-up with primary balloon dipper in [place] within 1-2 weeks post- discharge * Strongly counseled on risk factor modification including methamphetamine abuse cessation and medical compliance Very poor prognosis. Thank you for allowing us to participate in this patient's care. Please call if you have any questions or concerns. Critical care time: 35 min. This medical document was created using an electronic medical record system with voice recognition software and computerized dictation system. Although this document has been carefully reviewed, there might still be some phonetic and typographical errors. Occasional wrong-word or ``sound-alike substitutions may have occurred due to the inherent limitations of voice recognition software. These areas are purely typographical due to imperfections of the software programs and do not reflect any compromise in the patient's medical care. Please read the chart carefully and recognize, using context, where these substitutions have occurred. Plan discussed with: Patient, Other NYHA Physical activity limitations: Class4(Severe)discomfort (w any activit,symptoms at rest) Date of Service: May 17, 2024 Billing Provider: VERA WASHINGTON MD Cardiology Common Codes: 50748-VULFTRY INP/OBS CARE (High) LILLIAN STACK [facility] May 17, 2024 10:26
[2024-05-17] MEDS: FUROSEMIDE 40 MG/4 ML VIAL IV ONE (11:51)
[2024-05-17] MEDS: MAGNESIUM SULFATE 1GM/100ML 100 ML IV ONE (11:52)
--- NOTE | 2024-05-17 12:14 | DVH ---
CHEST RADIOGRAPH Indication:Acute CHF Technique: Single frontal view of the chest was obtained COMPARISON: XY CHEST PORTABLE on DOS: 05/16/24, XY CHEST XRAY 1 VIEW on DOS: 03/16/24, XY CHEST XRAY 1 VIEW on DOS: 03/15/24 FINDINGS: Lines and Tubes: None Lungs: Clear Pleura: No effusion. No pneumothorax. Cardiomediastinal contours: Cardiomegaly Bones: Unremarkable IMPRESSION: Unchanged cardiomegaly.
[2024-05-17 12:49] LABS: Basophils # (auto) 0.1 10 ^3/uL (0-0.2); Basophils % (auto) 2.1 % (0.0-2.0); Hemoglobin 10.9 g/dL (13.5-17.5); Mean Corpuscular Volume 77.5 fL (80.0-100.0)
[2024-05-17 12:51] LABS: Eosinophils # (auto) 0.3 10 ^3/uL (0-0.8); Hematocrit 34.7 % (41.0-53.0); Lymphocytes # (auto) 2.1 10 ^3/uL (0.4-5.4); Lymphocytes % (auto) 31.3 % (10.0-50.0); Mean Corpuscular Hemoglobin 24.3 pg (28.0-32.0); Mean Corpuscular Hgb Conc. 31.4 g/dL (32.0-36.0); Monocytes # (auto) 0.9 10 ^3/uL (0-1.3); Monocytes % (auto) 13.7 % (0.0-12.0); Neutrophils # (auto) 3.3 10 ^3/uL (1.6-8.6); Neutrophils % (auto) 48.9 % (37.0-80.0); Nucleated Red Blood Cells % 0.2 %; Red Blood Cells 4.49 10^6/uL (4.5-5.90); White Blood Cell 6.7 10^3/uL (4.4-10.8)
[2024-05-17 13:16] LABS: Platelet Count (auto) 373 10^3/uL (140-450); Red Cell Distribution Width 22.7 % (11.8-14.3)
[2024-05-17 13:18] LABS: Anisocytosis Slight; Hypochromia Slight; Platelet Estimate Adequate
[2024-05-17] MEDS: FUROSEMIDE 40 MG/4 ML VIAL IV SCH (17:47)
--- NOTE | 2024-05-17 18:17 | DVHPN2 ---
Subjective 05/17-patient is hypersomnolent on visit, he has difficult to understand speech that is compared of 2 and mumbling. He appears to endorse that he had a rough night and was unable to get adequate sleep. He continues to have pain on areas where she likely fell which include right shoulder and is requiring IV analgesics. Reviewed: H&P Changes from previous H/P or p: No Changes General: Per HPI Objective Vitals Vital Signs Date Time Temp Pulse Resp B/P (MAP) Pulse Ox O2 Delivery O2 Flow Rate FiO2 05/17/24 17:47 96/70 05/17/24 16:00 99 05/17/24 16:00 14 97 05/17/24 08:00 Simple Mask* 6 50 Intake/Output Intake and Output 05/17/24 07:00 Intake Total 0 ml Balance 0 ml Intake Oral 0 ml Exam GEN: Healthy appearing, well-developed, hypersomnolent on visit HEENT: NC/AT; MMM. CV: Irregularly irregular, normal rate LUNGS: Rales up to mid lungs. ABD: Soft, NT/ND, NBS, no masses or organomegaly. EXT: skin Warm, well perfused. no rashes. No clubbing, cyanosis, or edema. Old NEURO: Ambulating with no limitations. No focal deficits. Speech is difficult to understand (mumbling), patient is hypersomnolent, but on repeat questioning appears to be a and O x3 Medications Current Medications Medications Dose Ordered Sig/Mickey Route Start Time Stop Time Status Last Admin Dose Admin Aspirin 81 mg DAILY PO 05/16/24 10:00 05/17/24 10:37 81 MG Acetaminophen 650 mg Q6HP PRN PO 05/16/24 09:30 Zolpidem Tartrate 5 mg QHSP PRN PO 05/16/24 09:30 Docusate Sodium 100 mg DAILY PO 05/16/24 10:00 05/17/24 10:37 100 MG Ondansetron HCl 4 mg Q4HP PRN IV 05/16/24 09:30 05/17/24 04:33 4 MG Apixaban 5 mg BID PO 05/16/24 10:00 05/17/24 10:38 5 MG Bumetanide 1 mg QAM PO 05/17/24 07:00 Empaglifozin 10 mg DAILY PO 05/16/24 10:00 05/17/24 10:38 10 MG Acetaminophen/ Hydrocodone Bitart 1 tab Q8HP PRN PO 05/16/24 09:45 Levetiracetam 500 mg BID PO 05/16/24 10:00 05/17/24 10:38 500 MG Pantoprazole Sodium 40 mg DAILY IV 05/16/24 10:00 05/17/24 10:36 40 MG Quetiapine Fumarate 100 mg DAILY PO 05/16/24 10:00 05/17/24 10:38 100 MG Spironolactone 12.5 mg DAILY PO 05/16/24 10:00 05/17/24 10:38 12.5 MG Lisinopril 2.5 mg DAILY PO 05/16/24 11:06 Atorvastatin Calcium 40 mg HS PO 05/16/24 22:00 05/16/24 22:51 40 MG Morphine Sulfate 2 mg Q4HPRN PRN IV 05/16/24 20:45 05/17/24 13:06 2 MG Furosemide 40 mg BIDD IV 05/17/24 18:00 05/17/24 17:47 40 MG Metoprolol Tartrate 12.5 mg BID PO 05/17/24 22:00 Laboratory Results Laboratory Tests 05/17/24 08:19 05/17/24 12:35 Chemistry Test 05/17/24 08:19 Calcium Level 9.4 mg/dL (8.7-10.4) Magnesium Level 1.7 mg/dL (1.6-2.6) Cardiac Markers Test 05/17/24 08:19 B-Type Natriuretic Peptide 2191.54 pg/mL (0-100) Blood Gas Results Test 05/17/24 03:39 Arterial Blood pH 7.444 (7.350-7.450) FiO2 % 35.0 Labs and/or images reviewed: Labs reviewed by me, Image(s) reviewed by me Assessment/Plan Assessment/Plan Update- 05/17-patient is hypersomnolent on visit, he has difficult to understand speech that is compared of 2 and mumbling. He appears to endorse that he had a rough night and was unable to get adequate sleep. He continues to have pain on areas where she likely fell which include right shoulder and is requiring IV analgesics. 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 - on admit BNP elevated, chest x-ray with pulmonary vascular congestion, on exam rales up to mid lungs and no pitting edema -most recent echo March 2024 with EF 10%, PH, MR/TR . Patient on lowest doses for GDM team for HFrEF; cardiology evaluated this visit and recommend med cessation, diuresis to euvolemia, GDM T as tolerated for HFrEF, preload and afterload reduction, and continuing therapy for heart failure and AFib. - patient does not appear to comprehend the seriousness and severity of his disease stage and continues medical noncompliance and substance abuse. very poor prognosis. -continue GDM T as tolerated - Continue dual back Eliquis, continue beta-alexx Coreg 3 b.i.d. History CVA x2 -continue home meds, DA PT DAWNA - Creatinine rise from 1-1.3 by day 2. - likely cardiorenal -we will continue Lasix 40 b.i.d. Hypersomnolence Methamphetamine abuse -UA positive with methamphetamine This is likely methamphetamine withdrawal causing hypersomnolence -no FND on exam. - allow time for detox stepdown Tele overnight (can downgrade overnight if vitals remain stable and ICU/LEIA space needed) Diet - npo until more awake. can advance to [facility]D if improving DVT ppx - on home DOAC GI ppx - pepcid 20 bid Plan discussed with: Patient Date of Service: May 17, 2024 Billing Provider: SUMANTH ECHEVERRIA MD Common Visit Codes: 53793-AMB/OBS DISCH DAY >30min SUMANTH ECHEVERRIA MD May 17, 2024 18:17
[2024-05-17] MEDS: METOPROLOL TARTRATE 25 MG TAB PO SCH (21:22)
[2024-05-18] VITALS (22 sets, daily range): BP systolic 74–114; BP diastolic 50–85; PULSE 64–126; RESP 10–29; TEMP 96.6–98.1; O2SAT 89–100
[2024-05-18 05:12] LABS: Basophils # (auto) 0.1 10 ^3/uL (0-0.2); Mean Corpuscular Hemoglobin 23.7 pg (28.0-32.0); Nucleated Red Blood Cells % 0.1 %
[2024-05-18 05:14] LABS: Basophils % (auto) 1.9 % (0.0-2.0); Eosinophils # (auto) 0.3 10 ^3/uL (0-0.8); Eosinophils % (auto) 6.7 % (0.0-7.0); Hematocrit 32.3 % (41.0-53.0); Lymphocytes # (auto) 1.1 10 ^3/uL (0.4-5.4); Lymphocytes % (auto) 26.4 % (10.0-50.0); Mean Corpuscular Volume 76.4 fL (80.0-100.0); Monocytes # (auto) 0.4 10 ^3/uL (0-1.3); Monocytes % (auto) 10.3 % (0.0-12.0); Neutrophils # (auto) 2.4 10 ^3/uL (1.6-8.6); Neutrophils % (auto) 54.7 % (37.0-80.0); Red Blood Cells 4.24 10^6/uL (4.5-5.90); Red Cell Distribution Width 23.1 % (11.8-14.3); White Blood Cell 4.3 10^3/uL (4.4-10.8)
[2024-05-18 05:23] LABS: Platelet Count (auto) 268 10^3/uL (140-450)
[2024-05-18 05:32] LABS: Alanine Aminotransferase 65 U/L (7-40); Albumin 3.3 g/dL (3.2-4.8); Alkaline Phosphatase 79 U/L (46-116); Anion Gap 11 (5-15); Aspartate Aminotransferase 51 U/L (13-40); BUN/Creatinine Ratio 15.1 (10.0-20.0); Bilirubin, Total 1.7 mg/dL (0.2-1.0); Blood Urea Nitrogen 22 mg/dL (9-23); Calcium 8.9 mg/dL (8.7-10.4); Carbon Dioxide 25 mmol/L (20-31); Chloride 104 mmol/L (98-107); Glucose 121 mg/dL (74-106); Potassium 3.5 mmol/L (3.5-5.1); Sodium 140 mmol/L (136-145)
[2024-05-18 06:15] LABS: Anisocytosis Slight; Hypochromia Slight; Platelet Estimate Adequate
--- NOTE | 2024-05-18 08:19 | DVHPNRES ---
Progress Note Date Seen: May 18, 2024 Resident Creating Document: SHELBY LANCASTER RESIDENT Medical Necessity Reason Pt with a Central, PICC or Fol: No Subjective Review of Systems Homero Malone is a 28-year-old male patient who presents to ED via EMS with chief complaint of generalized weakness, dyspnea and retrosternal oppressive chest pain which radiates towards his right inframammary region and functional class IV. Patient reports recent admission in Hospital in [facility] due to acute exacerbation of CHF with requirement of endotracheal intubation, discharge to his mother house, patient seems to be noncompliant with medication. In ED an EKG was completed which showed AFib RVR and required oxygen therapy with simple mask, currently in moderate ventricular response. Denies palpitation, syncope, nausea, vomiting, diarrhea, bleeding, recent travel, sick contacts, fever, chills and motor or sensory deficits. 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 Surgical history: Denies Family history: Noncontributory Social history: Patient lives with his mother who is his caregiver. Continuous consuming methamphetamine (approximately one month ago was the last time he consume) and also consumes cannabis edibles. Denies tobacco and alcohol abuse. Allergies: Nitroglycerin Home medication: Empagliflozin 10 mg p.o. daily, carvedilol 3.125 mg p.o. b.i.d., spironolactone 12.5 mg p.o. daily, bumetanide 1 mg p.o. daily, valproic acid 250 mg p.o. daily, Keppra 500 mg p.o. b.i.d., lisinopril 2.5 mg p.o. daily, apixaban 5 mg p.o. b.i.d., atorvastatin 40 mg p.o. daily Patient seen and examined at bedside. Currently has no new complaints, continues on oxygen therapy with nasal cannula Objective vital signs Vital Sign Date Time Temp Pulse Resp B/P (MAP) Pulse Ox O2 Delivery O2 Flow Rate FiO2 05/18/24 06:01 77 11 96/76 (83) 100 05/18/24 04:01 98.1 98.1 05/17/24 20:00 Room Air* 0 N/A Simple Mask* Total Intake and Output 05/17/24 05/17/24 05/18/24 15:00 23:00 07:00 Intake Total 100 ml 834 ml 480 ml Output Total 1225 ml 800 ml Balance 100 ml -391 ml -320 ml medications Current Medications Medications Dose Ordered Sig/Mickey Route Start Time Stop Time Status Last Admin Dose Admin Aspirin 81 mg DAILY PO 05/16/24 10:00 05/17/24 10:37 81 MG Acetaminophen 650 mg Q6HP PRN PO 05/16/24 09:30 Zolpidem Tartrate 5 mg QHSP PRN PO 05/16/24 09:30 Docusate Sodium 100 mg DAILY PO 05/16/24 10:00 05/17/24 10:37 100 MG Ondansetron HCl 4 mg Q4HP PRN IV 05/16/24 09:30 05/17/24 04:33 4 MG Apixaban 5 mg BID PO 05/16/24 10:00 05/17/24 21:19 5 MG Bumetanide 1 mg QAM PO 05/17/24 07:00 Empaglifozin 10 mg DAILY PO 05/16/24 10:00 05/17/24 10:38 10 MG Acetaminophen/ Hydrocodone Bitart 1 tab Q8HP PRN PO 05/16/24 09:45 Levetiracetam 500 mg BID PO 05/16/24 10:00 05/17/24 21:19 500 MG Pantoprazole Sodium 40 mg DAILY IV 05/16/24 10:00 05/17/24 10:36 40 MG Quetiapine Fumarate 100 mg DAILY PO 05/16/24 10:00 05/17/24 10:38 100 MG Spironolactone 12.5 mg DAILY PO 05/16/24 10:00 05/17/24 10:38 12.5 MG Lisinopril 2.5 mg DAILY PO 05/16/24 11:06 Atorvastatin Calcium 40 mg HS PO 05/16/24 22:00 05/17/24 21:19 40 MG Morphine Sulfate 2 mg Q4HPRN PRN IV 05/16/24 20:45 05/17/24 13:06 2 MG Furosemide 40 mg BIDD IV 05/17/24 18:00 05/17/24 17:47 40 MG Metoprolol Tartrate 12.5 mg BID PO 05/17/24 22:00 Examination Patient lying in bed, in no acute distress General: Lucid, afebrile, mucosae are moist Cardiovascular: Irregular S1 and S2. No murmurs, gallops or rubs Respiratory: Regular ventilation mechanics. Bibasilar rales, rest of lung auscultation is clear. Currently on nasal cannula 2 liters/minute Abdomen: Soft, nontender, no organomegaly, normal bowel sounds MSK/skin: Mobilizes 4 limbs. Skin is dry and warm Neurological: Oriented in 3 spheres. No motor no sensitive deficits. 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 Uptitrate as tolerated. Preload and afterload reduction, currently on bumetanide 1 IV p.o. daily. No indication for dobutamine given tachycardia., Strict I&Os. Fluid restrictions. Daily weight. 2-g Na diet Continues with AFib RVR. NOAC therapy, Eliquis BID Continues with oxygen therapy (0 cannula 2 liters/minute) Monitor ECG changes and notify Follow-up with primary web production assistant in [place] within 1-2 weeks post-discharge Strongly counseled on risk factor modification including methamphetamine abuse cessation and medical compliance UDS positive for methamphetamine Discussed plan with Dr Forrest, patient and nurses: Patient will be downgraded to telemetry. Patient continues with IV diuretics, on GDM T, oral anticoagulation, continues with AFib RVR. Have strongly counseled on cessation of methamphetamine abuse. Patient is noncompliant despite end-stage heart failure, has poor prognosis. Plan discussed with: Patient, Other (Nurses) Visit Coding Cardiology RES Date of Service: May 18, 2024 Billing Provider: VERA FORREST MD Cardiology Common Codes: 00867-JMN/OBS SAME DATE (High), 50901-AXAVNAAN CARE- EACH +30MIN SHELBY LANCASTER RESIDENT May 18, 2024 08:19
[2024-05-18] MEDS: LACTATED RINGER'S 1,000 ML IV SCH (19:00)
[2024-05-18 21:25] LABS: Chloride 105 mmol/L (98-107); Sodium 139 mmol/L (136-145)
[2024-05-18 21:26] LABS: Anion Gap 10 (5-15); Calcium 9.1 mg/dL (8.7-10.4); Carbon Dioxide 24 mmol/L (20-31)
[2024-05-18 21:31] LABS: BUN/Creatinine Ratio 12.9 (10.0-20.0); Blood Urea Nitrogen 17 mg/dL (9-23); Glucose 65 mg/dL (74-106)
--- NOTE | 2024-05-18 21:59 | DVHPN2 ---
Subjective History of Present Illness This is a 28-year-old male HFrEF, A-fib on Eliquis, CVA X 2, pulmonary hypertension, methamphetamine abuse, history medication noncompliance who presented to the emergency room via EMS with a chief complaint of generalized weakness. Per patient he feels extreme lethargy associated with chest pain described as substernal, radiating to his right inframammary area, pressure- like, and unprovoked. He also reports a recent admission to a hospital in [place], [place] given an acute exacerbation of CHF where he required endotracheal intubation and recently discharged home and his mother has been caring for him. He is unable to state if he has been compliant with his medical therapy at home. A 12-lead electrocardiogram revealed an atrial fibrillation rhythm with rapid ventricular rate. At time of assessment the patient displayed an atrial fibrillation rhythm at a controlled rate. He was also found with O2 via simple mask. 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 Update -05/17-patient is hypersomnolent on visit, he has difficult to understand speech that is compared of 2 and mumbling. He appears to endorse that he had a rough night and was unable to get adequate sleep. He continues to have pain on areas where she likely fell which include right shoulder and is requiring IV analgesics. -05/18-patient hypersomnolent initially during visit. However he starts to improve during the visit while trying to awaken him. Collateral has been is established with family and appears patient is at his baseline functional and mental status, given history of CVA (causing dysarthria). She appears euvolemic today, vital signs stable, although DAWNA is worsening. Reviewed: H&P Changes from previous H/P or p: No Changes General: Per HPI Objective Vitals Vital Signs Date Time Temp Pulse Resp B/P (MAP) Pulse Ox O2 Delivery O2 Flow Rate FiO2 05/18/24 16:00 86 05/18/24 16:00 97.6 21 99 97.6 05/18/24 08:00 Nasal Cannula* 2 28 Intake/Output Intake and Output 05/18/24 07:00 Intake Total 1414 ml Output Total 2025 ml Balance -611 ml Intake Oral 1314 ml IV Total 100 ml Output Urine Total 2025 ml Exam GEN: Healthy appearing, well-developed, hypersomnolent on visit HEENT: NC/AT; MMM. CV: Irregularly irregular, normal rate LUNGS: Rales bibasilar ABD: Soft, NT/ND, NBS, no masses or organomegaly. EXT: skin Warm, well perfused. no rashes. No clubbing, cyanosis, or edema. Old NEURO: Ambulating with no limitations. No focal deficits. Speech is difficult to understand (mumbling), patient is hypersomnolent, but on repeat questioning appears to be a and O x3 Medications Current Medications Medications Dose Ordered Sig/Mickey Route Start Time Stop Time Status Last Admin Dose Admin Aspirin 81 mg DAILY PO 05/16/24 10:00 05/18/24 10:17 81 MG Acetaminophen 650 mg Q6HP PRN PO 05/16/24 09:30 Zolpidem Tartrate 5 mg QHSP PRN PO 05/16/24 09:30 Docusate Sodium 100 mg DAILY PO 05/16/24 10:00 05/18/24 10:17 100 MG Ondansetron HCl 4 mg Q4HP PRN IV 05/16/24 09:30 05/17/24 04:33 4 MG Apixaban 5 mg BID PO 05/16/24 10:00 05/18/24 10:17 5 MG Bumetanide 1 mg QAM PO 05/17/24 07:00 05/18/24 10:17 1 MG Empaglifozin 10 mg DAILY PO 05/16/24 10:00 05/18/24 10:17 10 MG Acetaminophen/ Hydrocodone Bitart 1 tab Q8HP PRN PO 05/16/24 09:45 Levetiracetam 500 mg BID PO 05/16/24 10:00 05/18/24 10:17 500 MG Pantoprazole Sodium 40 mg DAILY IV 05/16/24 10:00 05/18/24 10:16 40 MG Quetiapine Fumarate 100 mg DAILY PO 05/16/24 10:00 05/18/24 10:17 100 MG Spironolactone 12.5 mg DAILY PO 05/16/24 10:00 05/18/24 10:18 12.5 MG Lisinopril 2.5 mg DAILY PO 05/16/24 11:06 Atorvastatin Calcium 40 mg HS PO 05/16/24 22:00 05/17/24 21:19 40 MG Morphine Sulfate 2 mg Q4HPRN PRN IV 05/16/24 20:45 05/17/24 13:06 2 MG Metoprolol Tartrate 12.5 mg BID PO 05/17/24 22:00 05/18/24 10:18 12.5 MG Laboratory Results Laboratory Tests 05/18/24 04:58 Chemistry Test 05/18/24 04:58 05/18/24 21:16 Albumin 3.3 g/dL (3.2-4.8) Calcium Level 8.9 mg/dL (8.7-10.4) Pending Total Protein 6.0 g/dL (5.7-8.2) Cardiac Markers Test 05/18/24 04:58 B-Type Natriuretic Peptide 1346.40 pg/mL (0-100) LFT Test 05/18/24 04:58 Alanine Aminotransferase (ALT) 65 U/L (7-40) H Alkaline Phosphatase 79 U/L (46-116) Aspartate Amino Transferase (AST) 51 U/L (13-40) H Total Bilirubin 1.7 mg/dL (0.2-1.0) H Microbiology Microbiology Date/Time Source Procedure Growth Status 05/17/24 04:08 Nose MRSA Screen - Final Complete Labs and/or images reviewed: Labs reviewed by me, Image(s) reviewed by me Assessment/Plan Assessment/Plan Update- 05/18-patient hypersomnolent initially during visit. However he starts to improve during the visit while trying to awaken him. Collateral has been is established with family and appears patient is at his baseline functional and mental status, given history of CVA (causing dysarthria). She appears euvolemic today, vital signs stable, although DAWNA is worsening. Tentative plan: Patient is euvolemic now, he is on Minerva MD as well tolerated by VS. DAWNA is worsening, this is likely IV VD. Given slow flow is and we will repeat BMP in a.m.. If creatinine improves patient can be given on a small fluid bolus and continue appropriate follow up outpatient. If DAWNA improves, vital signs stable, possible DC tomorrow. 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 - on admit BNP elevated, chest x-ray with pulmonary vascular congestion, on exam rales up to mid lungs and no pitting edema -most recent echo March 2024 with EF 10%, PH, MR/TR . Patient on lowest doses for GDM team for HFrEF; cardiology evaluated this visit and recommend med cessation, diuresis to euvolemia, GDM T as tolerated for HFrEF, preload and afterload reduction, and continuing therapy for heart failure and AFib. - patient does not appear to comprehend the seriousness and severity of his disease stage and continues medical noncompliance and substance abuse. very poor prognosis. -continue GDM T as tolerated - Continue DOAC Eliquis, continue beta-alexx Coreg 3 b.i.d. History CVA x2 -continue home meds, DA PT DAWNA - 05/17: Creatinine rise from 1-1.3 by day 2. -05/18: patient on Lasix 40 IV b.i.d., creatinine continues to rise. Euvolemia on physical exam this is likely IV VD now we will hold off further diuresis -holding off Lasix, slow fluids given. We will repeat BMP in a.m. Hypersomnolence Methamphetamine abuse -UA positive with methamphetamine This is likely methamphetamine withdrawal causing hypersomnolence -no FND on exam. - 05/18: Patient is improving on alertness, appears to be back to his baseline mental status -counseled on cessation of meth abuse Downgrade to med tele Diet - full liquid diet. DVT ppx - on home DOAC GI ppx - pepcid 20 bid Plan discussed with: Patient My Orders Orders - SUMANTH ECHEVERRIA MD Procedure Category Date Status Time Transfer Orders XFER 05/18/24 Transmitted 08:06 Pt Request For Service PT 05/18/24 Logged 08:06 Basic Metabolic Panel LAB 05/18/24 In Process 21:00 Date of Service: May 18, 2024 Billing Provider: SUMANTH ECHEVERRIA MD Common Visit Codes: [id number] INP/OBS CARE(HIGH) SUMANTH ECHEVERRIA MD May 18, 2024 21:59
[2024-05-19 01:00] VITALS: BP 117/76; PULSE 88; RESP 20; TEMP 98; O2SAT 98
[2024-05-19 08:00] VITALS: RESP 13
[2024-05-19 09:52] LABS: Alanine Aminotransferase 58 U/L (7-40); Albumin 3.5 g/dL (3.2-4.8); Alkaline Phosphatase 86 U/L (46-116); Anion Gap 9 (5-15); Aspartate Aminotransferase 36 U/L (13-40); BUN/Creatinine Ratio 15.6 (10.0-20.0); Bilirubin, Total 1.1 mg/dL (0.2-1.0); Blood Urea Nitrogen 20 mg/dL (9-23); Calcium 9.1 mg/dL (8.7-10.4); Carbon Dioxide 26 mmol/L (20-31); Chloride 104 mmol/L (98-107); Glucose 117 mg/dL (74-106); Potassium 3.5 mmol/L (3.5-5.1); Sodium 139 mmol/L (136-145); Total Protein 6.2 g/dL (5.7-8.2)
--- NOTE | 2024-05-19 12:24 | DVHPN2 ---
Consult Progress Note Subjective Patient reports: No new complaints Objective vital signs Vital Sign Date Time Temp Pulse Resp B/P (MAP) Pulse Ox O2 Delivery O2 Flow Rate FiO2 05/19/24 09:40 116/69 05/19/24 09:39 52 05/19/24 09:15 20 05/19/24 01:00 98.0 98 98.0 05/18/24 20:00 Nasal Cannula* 2 28 Total Intake and Output 05/18/24 05/18/24 05/19/24 15:00 23:00 07:00 Intake Total 1248 ml 350 ml Output Total 1700 ml 450 ml Balance -452 ml -100 ml medications Current Medications Medications Dose Ordered Sig/Mickey Route Start Time Stop Time Status Last Admin Dose Admin Aspirin 81 mg DAILY PO 05/16/24 10:00 05/19/24 09:38 81 MG Acetaminophen 650 mg Q6HP PRN PO 05/16/24 09:30 Zolpidem Tartrate 5 mg QHSP PRN PO 05/16/24 09:30 Docusate Sodium 100 mg DAILY PO 05/16/24 10:00 05/19/24 09:38 100 MG Ondansetron HCl 4 mg Q4HP PRN IV 05/16/24 09:30 05/17/24 04:33 4 MG Apixaban 5 mg BID PO 05/16/24 10:00 05/19/24 09:38 5 MG Bumetanide 1 mg QAM PO 05/17/24 07:00 05/18/24 10:17 1 MG Empaglifozin 10 mg DAILY PO 05/16/24 10:00 05/19/24 09:38 10 MG Acetaminophen/ Hydrocodone Bitart 1 tab Q8HP PRN PO 05/16/24 09:45 Levetiracetam 500 mg BID PO 05/16/24 10:00 05/19/24 09:38 500 MG Pantoprazole Sodium 40 mg DAILY IV 05/16/24 10:00 05/19/24 09:38 40 MG Quetiapine Fumarate 100 mg DAILY PO 05/16/24 10:00 05/18/24 10:17 100 MG Spironolactone 12.5 mg DAILY PO 05/16/24 10:00 05/19/24 09:39 12.5 MG Lisinopril 2.5 mg DAILY PO 05/16/24 11:06 Atorvastatin Calcium 40 mg HS PO 05/16/24 22:00 05/18/24 22:58 40 MG Morphine Sulfate 2 mg Q4HPRN PRN IV 05/16/24 20:45 05/19/24 09:15 2 MG Metoprolol Tartrate 12.5 mg BID PO 05/17/24 22:00 05/18/24 10:18 12.5 MG Examination: LUNGS:Normal (Breathing stable on room air), CVS:Abnormal (Telemetry consistent with sinus bradycardia at 54 beats per minute.) laboratory and microbiology Laboratory Tests 05/19/24 09:26 05/18/24 04:58 Test 05/19/24 09:26 Range/Units Serum Glucose 117 H 74-106 mg/dL Problem List/Assessment/Plan Problem List/Assessment/Plan Problem List/Assessment/Plan Assessment Acute respiratory failure Acute on chronic decompensated end-stage HFrEF, NYHA Class IV 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 Uptitrate as tolerated. Preload and afterload reduction, currently on bumetanide 1 IV p.o. daily. No indication for dobutamine given tachycardia., Strict I&Os. Fluid restrictions. Daily weight. 2-g Na diet Continues with AFib RVR. NOAC therapy, Eliquis BID Continues with oxygen therapy (0 cannula 2 liters/minute) Monitor ECG changes and notify Follow-up with primary process specialist in [place] within 1-2 weeks post-discharge Strongly counseled on risk factor modification including methamphetamine abuse cessation and medical compliance UDS positive for methamphetamine Discussed plan with Dr Forrest, patient and nurses: Patient seen on telemetry. BP marginal, breathing stable on room air. Diuresing well. Monitor and replace electrolytes. Continue on GDMT, oral anticoagulation, continues with AFib RVR. Reinforced cessation of methamphetamine abuse. Patient is noncompliant despite end-stage heart failure, has poor prognosis. We will send off, please call with any questions or concerns. Portion of the chart may have been created with voice recognition software. Occasional wrong word or sound-alike substitutions may have occurred due to the inherent limitations of voice recognition software. Please read the chart carefully and recognize, using contacts, where the substitutions have occurred. Thank you for allowing me to participate in the management of this patient. Plan discussed with: Patient Date of Service: May 19, 2024 Billing Provider: VERA FORREST MD Common Visit Codes: [id number] INP/OBS CARE(HIGH), [id number] CARE 30-74 MIN [facility] May 19, 2024 12:24
[2024-05-19 12:30] VITALS: BP 110/68; PULSE 62; RESP 18; TEMP 97.9; O2SAT 97
--- NOTE | 2024-05-19 13:23 | DVHPN2 ---
Reviewed: Care Plan, H&P Changes from previous H/P or p: No Changes General: Per HPI Objective Vitals Vital Signs Date Time Temp Pulse Resp B/P (MAP) Pulse Ox O2 Delivery O2 Flow Rate FiO2 05/19/24 12:30 97.9 62 18 110/68 (82) 97 97.9 05/18/24 20:00 Nasal Cannula* 2 28 Intake/Output Intake and Output 05/19/24 07:00 Intake Total 1598 ml Output Total 2150 ml Balance -552 ml Intake Oral 1598 ml Output Urine Total 2150 ml Medications Current Medications Medications Dose Ordered Sig/Mickey Route Start Time Stop Time Status Last Admin Dose Admin Aspirin 81 mg DAILY PO 05/16/24 10:00 05/19/24 09:38 81 MG Acetaminophen 650 mg Q6HP PRN PO 05/16/24 09:30 Zolpidem Tartrate 5 mg QHSP PRN PO 05/16/24 09:30 Docusate Sodium 100 mg DAILY PO 05/16/24 10:00 05/19/24 09:38 100 MG Ondansetron HCl 4 mg Q4HP PRN IV 05/16/24 09:30 05/17/24 04:33 4 MG Apixaban 5 mg BID PO 05/16/24 10:00 05/19/24 09:38 5 MG Bumetanide 1 mg QAM PO 05/17/24 07:00 05/18/24 10:17 1 MG Empaglifozin 10 mg DAILY PO 05/16/24 10:00 05/19/24 09:38 10 MG Acetaminophen/ Hydrocodone Bitart 1 tab Q8HP PRN PO 05/16/24 09:45 Levetiracetam 500 mg BID PO 05/16/24 10:00 05/19/24 09:38 500 MG Pantoprazole Sodium 40 mg DAILY IV 05/16/24 10:00 05/19/24 09:38 40 MG Quetiapine Fumarate 100 mg DAILY PO 05/16/24 10:00 05/18/24 10:17 100 MG Spironolactone 12.5 mg DAILY PO 05/16/24 10:00 05/19/24 09:39 12.5 MG Lisinopril 2.5 mg DAILY PO 05/16/24 11:06 Atorvastatin Calcium 40 mg HS PO 05/16/24 22:00 05/18/24 22:58 40 MG Morphine Sulfate 2 mg Q4HPRN PRN IV 05/16/24 20:45 05/19/24 09:15 2 MG Metoprolol Tartrate 12.5 mg BID PO 05/17/24 22:00 05/18/24 10:18 12.5 MG Laboratory Results Laboratory Tests 05/18/24 04:58 05/19/24 09:26 Chemistry Test 05/18/24 21:16 05/19/24 09:26 Calcium Level 9.1 mg/dL (8.7-10.4) 9.1 mg/dL (8.7-10.4) Albumin 3.5 g/dL (3.2-4.8) Total Protein 6.2 g/dL (5.7-8.2) LFT Test 05/19/24 09:26 Alanine Aminotransferase (ALT) 58 U/L (7-40) H Alkaline Phosphatase 86 U/L (46-116) Aspartate Amino Transferase (AST) 36 U/L (13-40) Total Bilirubin 1.1 mg/dL (0.2-1.0) H Microbiology Microbiology Date/Time Source Procedure Growth Status 05/17/24 04:08 Nose MRSA Screen - Final Complete Labs and/or images reviewed: Labs reviewed by me, Image(s) reviewed by me Assessment/Plan Assessment/Plan Acute respiratory failure Acute on chronic decompensated end-stage HFrEF, NYHA Class IV 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 12 lead EKG obtained. appears to be tachycardia. Plan discussed with: Patient My Orders Orders - SHADE ROWLEY DO Procedure Category Date Status Time Troponin-I Hs LAB 05/19/24 Logged 13:08 Date of Service: May 19, 2024 Billing Provider: SHADE ROWLEY DO Common Visit Codes: [id number] INP/OBS CARE(HIGH) SHADE ROWLEY DO May 19, 2024 13:23
[2024-05-19] MEDS: POTASSIUM CHL 20 Meq TABLET PO ONE (13:41)
[2024-05-19 17:00] VITALS: BP 115/71; PULSE 71; RESP 20; TEMP 98; O2SAT 94
[2024-05-19 20:00] VITALS: PULSE 93; RESP 18
[2024-05-19 21:00] VITALS: BP 130/73; PULSE 93; RESP 18; TEMP 97.6; O2SAT 92
[2024-05-20 01:00] VITALS: BP 118/86; PULSE 62; RESP 20
[2024-05-20 05:00] VITALS: BP 108/73; PULSE 91; RESP 19; TEMP 97.4; O2SAT 95
[2024-05-20 08:00] VITALS: RESP 18
[2024-05-20] MEDS: METOCLOPRAMIDE HCL 5MG/ml INJ 2ml VIAL IV PRN (13:19)
--- NOTE | 2024-05-20 15:49 | DVHDS2 ---
Discharge Summary Date of Admission May 16, 2024 at 08:22 Date of Discharge: May 20, 2024 Labs/Diagnostic Data: Laboratory Results Test 05/19/24 13:50 05/19/24 09:26 05/18/24 04:58 05/17/24 08:19 Troponin I High Sensitivity 14 ng/L (</=54) Sodium Level 139 mmol/L (136-145) Potassium Level 3.5 mmol/L (3.5-5.1) Chloride Level 104 mmol/L (98-107) Carbon Dioxide Level 26 mmol/L (20-31) Anion Gap 9 (5-15) Blood Urea Nitrogen 20 mg/dL (9-23) Creatinine 1.28 mg/dL (0.700-1.30) Glomerular Filtration Rate Calc 77 mL/min (>90) BUN/Creatinine Ratio 15.6 (10.0-20.0) Serum Glucose 117 mg/dL (74-106) Calcium Level 9.1 mg/dL (8.7-10.4) Total Bilirubin 1.1 mg/dL (0.2-1.0) Aspartate Amino Transferase (AST) 36 U/L (13-40) Alanine Aminotransferase (ALT) 58 U/L (7-40) Alkaline Phosphatase 86 U/L (46-116) Total Protein 6.2 g/dL (5.7-8.2) Albumin 3.5 g/dL (3.2-4.8) White Blood Count 4.3 10^3/uL (4.4-10.8) Red Blood Count 4.24 10^6/uL (4.5-5.90) Hemoglobin 10.0 g/dL (13.5-17.5) Hematocrit 32.3 % (41.0-53.0) Mean Corpuscular Volume 76.4 fL (80.0-100.0) Mean Corpuscular Hemoglobin 23.7 pg (28.0-32.0) Mean Corpuscular Hemoglobin Concent 31.0 g/dL (32.0-36.0) Red Cell Distribution Width 23.1 % (11.8-14.3) Platelet Count 268 10^3/uL (140-450) Mean Platelet Volume 8.2 fL (6.9-10.8) Neutrophils (%) (Auto) 54.7 % (37.0-80.0) Lymphocytes (%) (Auto) 26.4 % (10.0-50.0) Monocytes (%) (Auto) 10.3 % (0.0-12.0) Eosinophils (%) (Auto) 6.7 % (0.0-7.0) Basophils (%) (Auto) 1.9 % (0.0-2.0) Neutrophils # (Auto) 2.4 10 ^3/uL (1.6-8.6) Lymphocytes # (Auto) 1.1 10 ^3/uL (0.4-5.4) Monocytes # (Auto) 0.4 10 ^3/uL (0-1.3) Eosinophils # (Auto) 0.3 10 ^3/uL (0-0.8) Basophils # (Auto) 0.1 10 ^3/uL (0-0.2) Nucleated Red Blood Cells 0.1 % Platelet Estimate Adequate Clumped Platelets Moderate Hypochromasia (manual) Slight Anisocytosis (manual) Slight Microcytosis Slight B-Type Natriuretic Peptide 1346.40 pg/mL (0-100) Magnesium Level 1.7 mg/dL (1.6-2.6) Test 05/17/24 03:39 05/17/24 03:16 05/16/24 12:00 Blood Gas Specimen Type Arterial Blood Gas Sample Site Left radial Blood Gas Patient Temperature 37.0 Arterial Blood Date Drawn [id number] Arterial Blood pH 7.444 (7.350-7.450) Arterial Blood Partial Pressure CO2 25.9 mmHg (35.0-48.0) Arterial Blood Partial Pressure O2 206.2 mmHg (83.0-108.0) Arterial Blood HCO3 17.4 mmol/L (21.0-28.0) Arterial Blood Oxygen Saturation 99.3 % (94.0-98.0) Arterial Blood Base Excess -5.2 mmol/L (-2.0-3.0) Arterial Blood Oxyhemoglobin 98.1 % (94.0-98.0) Arterial Blood Carboxyhemoglobin 0.8 % (0.5-1.5) Arterial Blood Methemoglobin 0.4 % (0.0-1.5) Clement Test Yes Blood Gas Total Hemoglobin 12.30 g/dL (13.5-17.5) Blood Gas Liter Flow 6.00 Blood Gas Modality Mask - simple FiO2 % 35.0 POC Glucose 84 mg/dl (70-106) Urine Opiates Screen Neg (NEGATIVE) Urine Fentanyl Screen Neg (NEGATIVE) Urine Barbiturates Screen Neg (NEGATIVE) Urine Phencyclidine Screen Neg (NEGATIVE) Urine Amphetamines Screen Pos (NEGATIVE) Urine Benzodiazepines Screen Neg (NEGATIVE) Urine Cocaine Screen Neg (NEGATIVE) Urine Cannabinoids Screen Neg (NEGATIVE) Other Laboratory Tests 05/19/24 09:26 05/18/24 04:58 Brief Hx & Hospital Course: This is a 28-year-old male HFrEF, A-fib on Eliquis, CVA X 2, pulmonary hypertension, methamphetamine abuse, history medication noncompliance who presented to the emergency room via EMS with a chief complaint of generalized weakness. Per patient he feels extreme lethargy associated with chest pain described as substernal, radiating to his right inframammary area, pressure- like, and unprovoked. He also reports a recent admission to a hospital in [place], [place] given an acute exacerbation of CHF where he required endotracheal intubation and recently discharged home and his mother has been caring for him. He is unable to state if he has been compliant with his medical therapy at home. A 12-lead electrocardiogram revealed an atrial fibrillation rhythm with rapid ventricular rate. At time of assessment the patient displayed an atrial fibrillation rhythm at a controlled rate. He was also found with O2 via simple mask. 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 12 lead EKG obtained. appears to be tachycardia. 05/20/2024: discharged to home with self care Condition at Discharge: Fair Final Diagnosis/Problems List see above Discharge Disposition: Home Discharge Instruct/Medications Diet: Cardiac 2g Na,low cholest Activity: No Restrictions, As Tolerated Discharge Statement: "Patient was advised to return to the ER or call 911 if any headaches, dizziness, shortness of breath, chest pain, abdominal pain, bleeding, fevers, or worsening of medical condition. Patient was counseled about treatment plan, medications, possible side effects, patientverbalized understanding. All questions were answered to the best of my ability. This discharge took greater then 30 minutes in planning, reviewing documentation, counseling the patient, and discussing with other team members." ASSESSMENT ASSESSMENT Assessment Date of Service: May 20, 2024 Billing Provider: SHADE ROWLEY DO Common Visit Codes: [id number] DISCH DAY >30min SHADE ROWLEY DO May 20, 2024 15:49
[2024-05-20 16:27] VITALS: BP 108/73; PULSE 91; RESP 19; TEMP 97.4; O2SAT 97
[2024-05-20 17:00] VITALS: BP 113/63; PULSE 81; RESP 18; TEMP 97.9; O2SAT 100
== END 2024-05-20 17:30 | disposition home or self-care (01) | DRG 133 ==
LOC: EDBD 06:38 → EDUNIT# 06:38 → ER 06:38 → TELE 08:22 → OVERFLOW 11:15 → WEST WING 23:20 → DOU IN ICU 05-17 04:00 → TELE-CENTR 05-18 18:38
PROVIDERS: ADMIT Hospitalist; ATTEND Hospitalist
DX: J96.00 Acute respiratory failure, unspecified whether with hypoxia or hypercapnia (principal); G93.41 Metabolic encephalopathy; I50.43 Acute on chronic combined systolic (congestive) and diastolic (congestive) heart failure; I27.20 Pulmonary hypertension, unspecified; D68.59 Other primary thrombophilia; I42.0 Dilated cardiomyopathy; I42.7 Cardiomyopathy due to drug and external agent; I48.11 Longstanding persistent atrial fibrillation; G47.10 Hypersomnia, unspecified; I11.0 Hypertensive heart disease with heart failure; N17.9 Acute kidney failure, unspecified; F15.23 Other stimulant dependence with withdrawal; I07.1 Rheumatic tricuspid insufficiency; J44.9 Chronic obstructive pulmonary disease, unspecified; R56.9 Unspecified convulsions; Z79.01 Long term (current) use of anticoagulants; Z86.73 Personal history of transient ischemic attack (TIA), and cerebral infarction without residual deficits; Z91.148 Patient's other noncompliance with medication regimen for other reason; Z91.199 Patient's noncompliance with other medical treatment and regimen due to unspecified reason; Z79.899 Other long term (current) drug therapy; Z88.8 Allergy status to other drugs, medicaments and biological substances
CPT/HCPCS: 36415; 36600; 70450; 71045; 80048; 80053; 80307; 82805; 82962; 83735; 83880; 84484; 85025; 87081; 93005; 96374; 96375; 99291; G0378; J2405; J2470

== ENCOUNTER 2024-06-16 05:43 | Inpatient (IN) | payer MEDICAID, OTHER ==
[~2024-06-16] VITALS: Ht 193 cm; Wt 109.1 kg
[2024-06-16 06:14] VITALS: PULSE 145; RESP 25; O2SAT 98
--- NOTE | 2024-06-16 06:48 | DVH ---
CHEST RADIOGRAPH Indication: cp Technique: Single frontal view of the chest was obtained COMPARISON: XY CHEST PORTABLE on DOS: 05/17/24, XY CHEST PORTABLE on DOS: 05/16/24, XY CHEST XRAY 1 V IEW on DOS: 03/16/24 FINDINGS: Lines and Tubes: None Lungs: Congestion Pleura: No effusion. No pneumothorax. Cardiomediastinal contours: Cardiomegaly Bones: Unremarkable IMPRESSION: Cardiomegaly and pulmonary vascular congestion
--- NOTE | 2024-06-16 06:48 | ECG ---
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
[2024-06-16] MEDS: MORPHINE SULFATE 4 MG/ML SYR/VIAL IV ONE (06:50)
[2024-06-16] MEDS: ONDANSETRON HCL 4 MG/2 ML VIAL IV ONE (06:51)
[2024-06-16] MEDS: ASPirin 325 MG TAB PO ONE (06:51)
--- NOTE | 2024-06-16 06:54 | ED.PDOC ---
History of Present Illness HPI Comments 28M presents to the ER w/ prior Hx of AFIB, CHF, COPD, HTN and NC which may be associated to the c/c of CP. Pt reports that he has been having constant CP with no actual date of when the pain began. Pt states "I need pain medication" due from not being able to get NORCO. Pt notes that he was also intubated in April due from an O.D. Medication. PMHx of CKF, CVA, and Seizures. Denies chills, fever, N/V/D, SOB or other associated symptoms, modifiers, or recent injuries at this time. Chief Complaint: Chest Pain Time Seen by MD: 06:30 Reviewed Notes: Nurses Notes, Medications, Allergies Allergies: Coded Allergies: Nitroglycerin (Verified Allergy, Unknown, 03/13/24) Home Meds Active Scripts Empagliflozin (Jardiance) 10 Mg Tab, 10 MG PO DAILY for 30 Days, #30 TAB 3 Refills Prov:SHADE ROWLEY DO 04/02/24 Carvedilol (COREG) 3.125 Mg Tab, 3.125 MG PO Q12HR for 30 Days, #60 TAB 4 Refills Prov:SHADE ROWLEY DO 04/02/24 Hydrocodone-Acetaminophen (Hydrocodone Bitartrate/AC 5-325 mg) 1 Tab Tab, 1 TAB PO Q8HP PRN for 5 Days, #15 TAB Prov:JASSON [place] [employer] OPERATOR 03/16/24 Bumetanide (Bumetanide) 1 Mg Tab, 1 MG PO QAM for 30 Days, #30 TAB 1 Refill Prov:JASSON [place] [employer] OPERATOR 03/16/24 Spironolactone (Aldactone) 25 Mg Tab, 12.5 MG PO DAILY for 30 Days, #15 TAB Prov:SHELBY LANCASTER RESIDENT 02/27/24 Reported Medications Valproic Acid (Valproic Acid) 250 Mg Cap, 250 MG PO, CAP 03/14/24 Levetiracetam (KEPPRA TABLET) 500 Mg Tb, 500 MG PO BID, TAB 03/14/24 Pantoprazole Sodium (PANTOPRAZOLE SODIUM) 40 Mg Inj, 40 MG IV DAILY, INJ 03/03/24 Dapagliflozin Propanediol (Farxiga) 10 Mg Tab, 10 MG PO DAILY, TAB 03/03/24 Quetiapine Fumerate (QUETIAPINE FUMARATE) 100 Mg Tab, 1 TAB PO DAILY 01/25/24 Levetiracetam (Levetiracetam) 500 Mg Tab, 1 TAB PO BID 01/25/24 Lisinopril (Lisinopril) 2.5 Mg Tab, 1 TAB PO DAILY 01/25/24 Apixaban Base (ELIQUIS) 5 Mg Tab, 1 TAB PO BID 01/25/24 Atorvastatin Calcium (ATORVASTATIN CALCIUM) 40 Mg Tab, 1 TAB PO DAILY 01/25/24 Information Source: Patient Mode of Arrival: Ambulatory Severity: Moderate Timing: Other ("Constant") Duration: Since onset Prehospital treatment: None Past Medical History PAST MEDICAL HISTORY: AFIB, CHF, CKF, COPD, CVA, HTN, NC, Seizures Surgical History: Denies all surgeries Family History Family History: Reviewed,noncontributory to illness, Unknown Social History Smoker: Unknown Alcohol: Unknown Drugs: Unknown Lives In: Home Constitutional: denies: chills, diaphoresis, fatigue, fever, malaise, sweats, weakness, others EENTM: denies: blurred vision, double vision, ear bleeding, ear discharge, ear drainage, ear pain, ear ringing, eye pain, eye redness, hearing loss, mouth pain, mouth swelling, nasal discharge, nose bleeding, nose congestion, nose pain, photophobia, tearing, throat pain, throat swelling, voice changes, others Respiratory: denies: cough, hemoptysis, orthopnea, SOB at rest, shortness of breath, SOB with excertion, stridor, wheezing, others Cardiovascular: reports: chest pain; denies: dizzy spells, diaphoresis, Dyspnea on exertion, edema, irregular heart beat, left arm pain, lightheadedness, palpitations, PND, syncope, others Gastrointestinal: denies: abdomen distended, abdominal pain, blood streaked bowels, constipated, diarrhea, dysphagia, difficulty swallowing, hematemesis, melena, nausea, poor appetite, poor fluid intake, rectal bleeding, rectal pain, vomiting, others Genitourinary: denies: burning, dysuria, flank pain, frequency, hematuria, incontinence, penile discharge, penile sore, pain, testicle pain, testicle swelling, urgency, others Neurological: denies: dizziness, fainting, headache, left sided numbness, left sided weakness, numbness, paresthesia, pre-existing deficit, right sided numbness, right sided weakness, seizure, speech problems, tingling, tremors, wea kness, others Musculoskeletal: denies: back pain, gout, joint pain, joint swelling, muscle pain, muscle stiffness, neck pain, others Integumetry: denies: bruises, change in color, change in hair/nails, dryness, l aceration, lesions, lumps, rash, wounds, others Allergic/Immunocompromised: denies: Difficulty Healing, Frequent Infections, Hives, Itching, others Hematologic/Lymphatic: denies: anemia, blood clots, easy bleeding, easy bruising, swollen glands, others Endocrine: denies: excessive hunger, excessive sweating, excessive thirst, excessive urination, flushing, intolerance to cold, intolerance to heat, unexplained weight gain, unexplained weight loss, others Psychiatric: denies: anxiety, bipolar disorder, depression, hopeless, panic disorder, schizophrenia, sleepless, suicidal, others All Other Systems: Reviewed and Negative Physical Exam General Appearance: Mild Distress HEENT: Normal ENT Inspection Neck: Full Range of Motion, Normal Inspection Respiratory: No Accessory Muscle Use, No Respiratory Distress, Normal Breath Sounds, Rales Cardiovascular: No Edema, No JVD, Normal Peripheral Pulses, Tachycardia Breast Exam: Deferred Gastrointestinal: Non Tender, Soft Genitalia: Deferred Pelvic: Deferred Rectal: Deferred Extremities: Normal inspection, Normal range of motion, Non-tender, No pedal edema Musculoskeletal : Apperance: Normal Neurologic: Alert (oriented x 4), Normal Affect, Normal Mood, Other (Moves all extremities, follows commands, no gross focal deficit) Cerebellar Function: NOT DONE Reflexes: NOT DONE Skin: Dry, Normal Color, Warm Lymphatic: NOT DONE Was a procedure done? Was a procedure done?: No EKG EKG : Comments AFib with RVR, rate 121, QRS prolonged at 130, QTC prolonged at 515, normal axis, possible old anteroseptal infarct, inferior ST depression with other nonspecific T changes Differential Dx Considerations may include: ACS, NC, arrhythmia, CHF, COPD/asthma, pneumonia, chest wall pain, among others X-Ray, Labs, Meds, VS Vital Signs Date Time Temp Pulse Resp B/P (MAP) Pulse Ox O2 Delivery O2 Flow Rate FiO2 06/16/24 08:35 142/75 06/16/24 08:12 126 142/75 06/16/24 08:00 133 06/16/24 07:30 126 21 117/84 (95) 100 06/16/24 07:30 21 100 Nasal Cannula* 4 36 06/16/24 07:20 126 21 142/75 06/16/24 06:50 134 16 113/87 06/16/24 06:14 145 25 98 Room Air* 0 21 06/16/24 06:14 145 25 113/87 (96) 98 06/16/24 06:05 99.2 62 16 102/76 (85) 100 06/16/24 05:51 121 Lab Test 06/16/24 07:35 06/16/24 06:36 Range/Units Troponin I High Sensitivity 27 28 </=54 ng/L White Blood Count 12.3 H 4.4-10.8 10^3/uL Red Blood Count 4.15 L 4.5-5.90 10^6/uL Hemoglobin 9.9 L 13.5-17.5 g/dL Hematocrit 32.1 L 41.0-53.0 % Mean Corpuscular Volume 77.2 L 80.0-100.0 fL Mean Corpuscular Hemoglobin 23.8 L 28.0-32.0 pg Mean Corpuscular Hemoglobin Concent 30.8 L 32.0-36.0 g/dL Red Cell Distribution Width 23.3 H 11.8-14.3 % Platelet Count 130 L 140-450 10^3/uL Mean Platelet Volume 9.8 6.9-10.8 fL Neutrophils (%) (Auto) 71.4 37.0-80.0 % Lymphocytes (%) (Auto) 11.9 10.0-50.0 % Monocytes (%) (Auto) 15.3 H 0.0-12.0 % Eosinophils (%) (Auto) 0.2 0.0-7.0 % Basophils (%) (Auto) 1.2 0.0-2.0 % Neutrophils # (Auto) 8.8 H 1.6-8.6 10 ^3/uL Lymphocytes # (Auto) 1.5 0.4-5.4 10 ^3/uL Monocytes # (Auto) 1.9 H 0-1.3 10 ^3/uL Eosinophils # (Auto) 0 0-0.8 10 ^3/uL Basophils # (Auto) 0.1 0-0.2 10 ^3/uL Nucleated Red Blood Cells 0.1 % Platelet Estimate Decreased Clumped Platelets Moderate Hypochromasia (manual) Slight Anisocytosis (manual) Slight Microcytosis Slight Sodium Level 132 L 136-145 mmol/L Potassium Level 3.9 3.5-5.1 mmol/L Chloride Level 96 L 98-107 mmol/L Carbon Dioxide Level 24 20-31 mmol/L Anion Gap 12 5-15 Blood Urea Nitrogen 24 H 9-23 mg/dL Creatinine 1.47 H 0.700-1.30 mg/dL Glomerular Filtration Rate Calc 65 >90 mL/min BUN/Creatinine Ratio 16.3 10.0-20.0 Serum Glucose 118 H 74-106 mg/dL Calcium Level 9.3 8.7-10.4 mg/dL B-Type Natriuretic Peptide 2349.18 0-100 pg/mL Current Medications Medications (Trade) Dose Ordered Sig/Mickey Route Start Time Stop Time Status Last Admin Metoprolol Tartrate (Lopressor) 2.5 mg ONCE ONCE IV 06/16/24 06:45 06/16/24 06:46 DC 06/16/24 08:12 Morphine Sulfate 2 mg ONCE ONCE IV 06/16/24 06:45 06/16/24 06:46 DC 06/16/24 06:50 Ondansetron HCl (Zofran) 4 mg ONCE ONCE IV 06/16/24 06:45 06/16/24 06:46 DC 06/16/24 06:51 Aspirin 325 mg ONCE ONCE PO 06/16/24 06:45 06/16/24 06:46 DC 06/16/24 06:51 Furosemide (Lasix Injection) 40 mg ONCE ONCE IV 06/16/24 08:15 06/16/24 08:16 DC 06/16/24 08:35 X-Ray, Labs, Meds, VS Comment 28-year-old male with a history of AFib, CHF and seizures complaining of chest pain Vitals remarkable for heart rate 121 Exam remarkable for irregularly irregular tachycardic heart rhythm, bibasilar rales Rhythm strip independently interpreted by me: AFib with RVR, rate 121 Chest x-ray reviewed by me: Cardiomegaly with pulmonary vascular congestion Labs pertinent for the following: WBC 12.3, sodium 132, chloride 96, BUN 24, creatinine 1.47 Troponin negative BNP 2349.18 Patient treated with the following in the ED: Aspirin 325 mg p.o., Lasix 40 mg IV, morphine 2 mg IV, Zofran 4 mg IV, metoprolol 2.5 mg IV Patient refused nitroglycerin, stating it causes tachycardia On re-evaluation, patient states chest pain has improved. Heart rate is improving. Plan is to admit the patient for rate control, diuresis and Cardiology evaluation. Case discussed with Jonathan BARRERA RP. Initial plan was for transfer, however on re- evaluation patient's blood pressure is 82/43. Time of 1ST Reevaluation: 07:00 Reevaluation 1ST: Unchanged Patient Education/Counseling: Diagnosis, Treatment, Prognosis Family Education/Counseling: No Family Present Additional Information I reviewed the following notes from the pt's past medical encounters: 05/16/24 The following tests were ordered, and results were reviewed by me: labs, EKGS, xrays, PHA I reviewed and agreed with the following test results read by other providers: xray I discussed treatments and results with medical personnel and: (consultants, fam, etc) Departure 1 Departure Time of Disposition: 18:20 Impression: Primary Impression: Chest pain Qualified Codes: I20.0 - Unstable angina Additional Impressions: Rapid atrial fibrillation Acute exacerbation of CHF (congestive heart failure) Qualified Codes: I50.9 - Heart failure, unspecified Disposition: 09 ADMITTED INPATIENT Admit to: Tele Condition: Guarded Critical Care Note Critical Care Time?: Yes (45 min-critical care time only) Critical care comment: Critical care time including multiple bedside re-evaluations, review of lab and imaging studies, and discussion of the case with the admitting provider. Patient is high risk for hemodynamic decompensation. Stability Stability form required: No Heart Score Heart Score: Heart Score Response (Comments) Value History Highly Suspicious [address]-Deviation 2 Age <45 0 Risk Factors 1 or 2 risk factors 1 Troponin Normal limit 0 Total 5 I personally scribed for PADMINI MIRAMONTES MD ([email or web address]) on 06/16/24 at 06:54. Electronically submitted by Fabrice Patterson ([email or web address]). PADMINI MIRAMONTES MD Jun 16, 2024 06:54
[2024-06-16 07:21] LABS: Eosinophils # (auto) 0 10 ^3/uL (0-0.8); Hemoglobin 9.9 g/dL (13.5-17.5)
[2024-06-16 07:28] LABS: Potassium 3.9 mmol/L (3.5-5.1)
[2024-06-16 07:29] LABS: Anion Gap 12 (5-15); Calcium 9.3 mg/dL (8.7-10.4); Carbon Dioxide 24 mmol/L (20-31)
[2024-06-16 07:30] VITALS: RESP 21; O2SAT 100
[2024-06-16 07:34] LABS: BUN/Creatinine Ratio 16.3 (10.0-20.0)
[2024-06-16 07:40] LABS: Basophils # (auto) 0.1 10 ^3/uL (0-0.2); Basophils % (auto) 1.2 % (0.0-2.0); Eosinophils % (auto) 0.2 % (0.0-7.0); Hematocrit 32.1 % (41.0-53.0); Lymphocytes # (auto) 1.5 10 ^3/uL (0.4-5.4); Lymphocytes % (auto) 11.9 % (10.0-50.0); Mean Corpuscular Hemoglobin 23.8 pg (28.0-32.0); Mean Corpuscular Hgb Conc. 30.8 g/dL (32.0-36.0); Mean Corpuscular Volume 77.2 fL (80.0-100.0); Monocytes # (auto) 1.9 10 ^3/uL (0-1.3); Monocytes % (auto) 15.3 % (0.0-12.0); Neutrophils # (auto) 8.8 10 ^3/uL (1.6-8.6); Neutrophils % (auto) 71.4 % (37.0-80.0); Nucleated Red Blood Cells % 0.1 %; Red Blood Cells 4.15 10^6/uL (4.5-5.90); White Blood Cell 12.3 10^3/uL (4.4-10.8)
[2024-06-16 07:41] LABS: Blood Urea Nitrogen 24 mg/dL (9-23); Chloride 96 mmol/L (98-107); Glucose 118 mg/dL (74-106); Red Cell Distribution Width 23.3 % (11.8-14.3); Sodium 132 mmol/L (136-145)
[2024-06-16] MEDS: METOPROLOL TARTRATE 1MG/1ML-5ML VIAL IV ONE ×2 (08:12→08:55)
[2024-06-16] MEDS: FUROSEMIDE 40 MG/4 ML VIAL IV ONE (08:35)
[2024-06-16 08:38] LABS: Anisocytosis Slight; Hypochromia Slight
[2024-06-16] MEDS ORDERED: MAALOX PLUS or MAALOX 30 ML PO PRN (08:45)
[2024-06-16] MEDS ORDERED: ONDANSETRON HCL 4 MG/2 ML VIAL IV PRN (08:45)
[2024-06-16] MEDS ORDERED: DEXTROSE (50%) 50ML SYRG IV PRN (08:45)
[2024-06-16] MEDS ORDERED: LORazepam 0.5 MG TAB PO PRN (08:45)
[2024-06-16] MEDS ORDERED: ZOLPIDEM TARTRATE 5 MG TAB PO PRN (08:45)
[2024-06-16] MEDS: MORPHINE SULFATE INJ 2 MG/ml SYRG IV ONE (08:56)
--- NOTE | 2024-06-16 08:59 | DVHHP2 ---
History of Present Illness Reason for Visit: Chest pain History of Present Illness 28-year-old patient with a past medical history of CHF COPD CKD history of CVA history of hypertension patient with history of seizures and consistent methamphetamine abuse AFib with recurrent RVR patient was previously in the hospital for management of congestive heart failure and COPD exacerbation 2 weeks prior patient is here today with complaints of chest pain and shortness of breath very similar to his previous admission and previous complaints patient is blatantly stating that he requires pain medication normally he takes [place] when he is requiring medication to manage his chronic pain issues eyes every as per patient this has current complaint on continued evaluation patient did have signs of elevated white count as well as elevated BNP as well as elevated creatinine levels and elevated troponin levels Cardiovascular: AFIB, CAD, CHF, HTN, CO Renal/: Chronic renal failure Review of Systems Constitutional: Yes: Weakness; No: Fever, Chills, Sweats, Malaise, Other Eyes: No: Pain, Vision change, Conjunctivae inflammation, Eyelid inflammation, Other, Redness ENT: No: Ear pain, Ear discharge, Nose pain, Nose discharge, Nose congestion, Mouth pain, Mouth swelling, Throat pain, Throat swelling, Other Respiratory: Cough, Shortness of breath; No: Dry, SOB with excertion, Wheezing, Hemoptysis, Pleuritic Pain, Sputum, Wheezing, Other Cardiovascular: Chest Pain, Palpitations; No: Orthopnea, Paroxysmal Noc. Dyspnea, Edema, Lt Headedness, Other Gastrointestinal: No: Nausea, Vomiting, Abdominal Pain, Diarrhea, Constipation, Melena, Hematochezia, Other Genitourinary: No Dysuria, No Frequency, No Incontinence, No Hematuria, No Retention, No Other Musculoskeletal: No: other, neck pain, shoulder pain, arm pain, back pain, hand pain, leg pain, foot pain Skin: No: Rash, Lesions, Jaundice, Bruising, Other Neurological: No: Weakness, Numbness, Incoordination, Change in speech, Confusion, Seizures, Other Allergies: Coded Allergies: Nitroglycerin (Verified Allergy, Unknown, 03/13/24) Medications Current Medications Medications Dose Ordered Sig/Mickey Route Start Time Stop Time Status Last Admin Dose Admin Apixaban 5 mg BID PO 06/16/24 10:00 UNV Bumetanide 1 mg QAM PO 06/17/24 07:00 UNV Carvedilol 3.125 mg Q12HR PO 06/16/24 10:00 UNV Levetiracetam 500 mg BID PO 06/16/24 10:00 UNV Pantoprazole Sodium 40 mg DAILY IV 06/16/24 10:00 UNV Quetiapine Fumarate 100 mg DAILY PO 06/16/24 10:00 UNV Spironolactone 12.5 mg DAILY PO 06/16/24 10:00 UNV Patient Own Medication 1 tab DAILY PO 06/16/24 10:00 UNV Patient Own Medication 1 tab DAILY PO 06/16/24 10:00 UNV Albuterol 2.5 mg Q4HPRN PRN NEB 06/16/24 08:45 UNV Ipratropium [place] 0.5 mg Q4HPRN PRN NEB 06/16/24 08:45 UNV Furosemide 40 mg BID IV 06/16/24 10:00 UNV Diagnostic Test (Pha) 1 strip IQ4HR 06/16/24 12:00 UNV Insulin Human Regular IQ4HR SC 06/16/24 12:00 UNV Dextrose 50 ml UD PRN IV 06/16/24 08:45 UNV Aspirin 81 mg DAILY PO 06/16/24 10:00 UNV Acetaminophen 650 mg Q6HP PRN PO 06/16/24 08:45 UNV Zolpidem Tartrate 5 mg QHSP PRN PO 06/16/24 08:45 UNV Lorazepam 0.5 mg Q6HP PRN PO 06/16/24 08:45 UNV Docusate Sodium 100 mg DAILY PO 06/16/24 10:00 UNV Ondansetron HCl 4 mg Q4HP PRN IV 06/16/24 08:45 UNV Al Hydrox/Mg Hydrox/Simethicone 30 ml Q6HP PRN PO 06/16/24 08:45 UNV Morphine Sulfate 2 mg Q30M PRN IV 06/16/24 08:45 UNV Exam Vital Signs Vital Signs Date Time Temp Pulse Resp B/P (MAP) Pulse Ox O2 Delivery O2 Flow Rate FiO2 06/16/24 08:35 142/75 06/16/24 08:12 126 06/16/24 07:30 21 100 06/16/24 07:30 Nasal Cannula* 4 36 06/16/24 06:05 99.2 General Appearance: Alert, Oriented X3, moderate distress HEENT: Atraumatic, PERRLA, EOMI Respiratory: Clear to auscultation, Normal air movement Cardiovascular: Regular rate, Normal S1, Normal S2 Abdominal: Normal bowel sounds, Soft, No tenderness Extremities: No clubbing, No cyanosis, No edema Skin: No rashes, No breakdown Neuro: Normal gait, Normal speech Psych/Mental Status: Mood NL Labs/Xrays Labs Test 06/16/24 07:35 06/16/24 06:36 Range/Units Troponin I High Sensitivity 27 </=54 ng/L White Blood Count 12.3 H 4.4-10.8 10^3/uL Red Blood Count 4.15 L 4.5-5.90 10^6/uL Hemoglobin 9.9 L 13.5-17.5 g/dL Hematocrit 32.1 L 41.0-53.0 % Mean Corpuscular Volume 77.2 L 80.0-100.0 fL Mean Corpuscular Hemoglobin 23.8 L 28.0-32.0 pg Mean Corpuscular Hemoglobin Concent 30.8 L 32.0-36.0 g/dL Red Cell Distribution Width 23.3 H 11.8-14.3 % Mean Platelet Volume 9.8 6.9-10.8 fL Neutrophils (%) (Auto) 71.4 37.0-80.0 % Lymphocytes (%) (Auto) 11.9 10.0-50.0 % Monocytes (%) (Auto) 15.3 H 0.0-12.0 % Eosinophils (%) (Auto) 0.2 0.0-7.0 % Basophils (%) (Auto) 1.2 0.0-2.0 % Neutrophils # (Auto) 8.8 H 1.6-8.6 10 ^3/uL Lymphocytes # (Auto) 1.5 0.4-5.4 10 ^3/uL Monocytes # (Auto) 1.9 H 0-1.3 10 ^3/uL Eosinophils # (Auto) 0 0-0.8 10 ^3/uL Basophils # (Auto) 0.1 0-0.2 10 ^3/uL Nucleated Red Blood Cells 0.1 % Clumped Platelets Moderate Hypochromasia (manual) Slight Anisocytosis (manual) Slight Microcytosis Slight Sodium Level 132 L 136-145 mmol/L Potassium Level 3.9 3.5-5.1 mmol/L Chloride Level 96 L 98-107 mmol/L Carbon Dioxide Level 24 20-31 mmol/L Anion Gap 12 5-15 Blood Urea Nitrogen 24 H 9-23 mg/dL Creatinine 1.47 H 0.700-1.30 mg/dL Glomerular Filtration Rate Calc 65 >90 mL/min BUN/Creatinine Ratio 16.3 10.0-20.0 Serum Glucose 118 H 74-106 mg/dL Calcium Level 9.3 8.7-10.4 mg/dL B-Type Natriuretic Peptide 2349.18 0-100 pg/mL Assessment/Plan Assessment/Plan Admit to telemetry Chest pain with mild risk NSTEMI suspected History of AFib with RVR patient noncompliant to medications History of acute on chronic combined CHF exacerbation Chest pain protocol to be followed to manage patient's high risk Cardiology to be consulted History of CHF BNP elevated greater than 2000 History of COPD P.r.n. breathing treatments We will continue with the patient's home medications that he should be taking Including statin, Eliquis, lisinopril, pantoprazole, Keppra for chronic seizure medication management, valproic acid for mood stabilization and seizure disorder, carvedilol for management of AFib and rate control Mild hyperglycemia we will place on insulin sliding scale For the coverage of COPD suspected exacerbation we will treat with ceftriaxone azithromycin monitor for signs of fluid overload Plan discussed with: Patient My Orders Orders - RYAN LORENZANA MD Procedure Category Date Status Time Apixaban (Eliquis) PHA 06/16/24 Logged 10:00 Bumetanide Tablet PHA 06/17/24 Logged (Bumex Tablet) 07:00 Carvedilol Tablet PHA 06/16/24 Logged (Coreg Tablet) 10:00 Levetiracetam Tablet PHA 06/16/24 Logged (Keppra Tablet) 10:00 Pantoprazole PHA 06/16/24 Logged (Protonix) 10:00 Quetiapine Fumarate PHA 06/16/24 Logged Tablet (Seroquel Tab 10:00 Spironolactone PHA 06/16/24 Logged (Aldactone) 10:00 (Nf) Atorvastatin PHA 06/16/24 Logged Calcium 10:00 (Nf) Lisinopril PHA 06/16/24 Logged 10:00 Albuterol Medneb PHA 06/16/24 Logged (Ventolin Medneb) 08:45 Ipratropium Medneb PHA 06/16/24 Logged (Atrovent Medneb) 08:45 Med Neb Initial RT 06/16/24 Logged Treatment 08:40 Furosemide Injection PHA 06/16/24 Logged (Lasix Injection) 10:00 Glucose Blood PHA 06/16/24 Logged (Accu-Chek Comfort 12:00 Insulin R (Human) PHA 06/16/24 Logged (Insulin R) 12:00 Dextrose 50% Syringe PHA 06/16/24 Logged 08:45 Admit ADMIT 06/16/24 Transmitted 08:40 Code Status CODE 06/16/24 Transmitted 08:40 Cardiac DIET 06/16/24 Transmitted Diet-2gna,Lofat,Lochol Breakfast Aspirin Tablet [facility] 06/16/24 Logged 10:00 Acetaminophen Tablet PHA 06/16/24 Logged (Tylenol Tablet) 08:45 Zolpidem Tartrate PHA 06/16/24 Logged (Ambien) 08:45 Lorazepam Tablet [facility] 06/16/24 Logged (Ativan Tablet) 08:45 Docusate Sodium [facility] 06/16/24 Logged Capsule (Colace 10:00 Complete Blood Count LAB 06/17/24 Verified 04:00 Basic Metabolic Panel LAB 06/17/24 Verified 04:00 Ondansetron Hcl [facility] 06/16/24 Logged (Zofran) 08:45 Electrocardigram EKG 06/16/24 Logged 08:40 Alum & Mag PHA 06/16/24 Logged Hydrox-Simethicone 08:45 Cardiac [facility] 06/16/24 In Process Rehabilitation - Outpa Morphine Sulfate [facility] 06/16/24 Logged Injection 08:45 Stat Ekg For Chest [facility] 06/16/24 In Process Pain 08:40 Notify Of Changes [facility] 06/16/24 In Process From Base 08:40 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 Single Spindle For [facility] 06/16/24 In Process 24 Hours 08:40 Emergency Dysrhythmia [facility] 06/16/24 In Process Protocol 08:40 Rhythm Strips Once [facility] 06/16/24 In Process Every Shift 08:40 Oxygen By Nasal RT 06/16/24 Transmitted Cannula 08:40 Problem List: (1) Acute exacerbation of CHF (congestive heart failure) (2) Rapid atrial fibrillation (3) Chest pain (4) History of CHF (congestive heart failure) (5) Methamphetamine abuse (6) COPD (chronic obstructive pulmonary disease) (7) CHF (congestive heart failure) Date of Service: Jun 16, 2024 Billing Provider: RYAN LORENZANA MD Common Visit Codes: [id number] INP/OBS CARE (HIGH) RYAN LORENZANA MD Jun 16, 2024 08:59
[2024-06-16 09:05] LABS: Platelet Count (auto) 130 10^3/uL (140-450); Platelet Estimate Decreased
[2024-06-16 09:08] LABS: Urine Bacteria None Seen /hpf (None Seen)
[2024-06-16 09:16] VITALS: BP 114/87; PULSE 109; RESP 37; O2SAT 99
[2024-06-16 09:18] LABS: Urine Blood Negative /uL (Negative); Urine Clarity Clear (Clear); Urine Color Yellow (Yellow); Urine Protein, UAD 1+ (Negative); Urine Specific Gravity 1.022 (1.001-1.035); Urine Urobilinogen 12 mg/dL (Negative); Urine WBC 1 /hpf (0 - 3); Urine pH 5.5 (5.0-9.0)
[2024-06-16] MEDS: PANTOPRAZOLE 40 MG/10 ML VIAL INJ IV SCH (10:24)
[2024-06-16] MEDS: APIXABAN 5 MG TAB PO SCH (10:24)
[2024-06-16] MEDS: DOCUSATE SOD 100 MG CAP PO SCH (10:24)
[2024-06-16] MEDS: levETIRAcetam 500 MG TAB PO SCH (10:24)
[2024-06-16] MEDS: SPIRONOLACTONE 25 MG TAB PO SCH (10:25)
[2024-06-16] MEDS: ASPirin 81 mg TAB PO SCH (10:25)
[2024-06-16] MEDS: QUEtiapine FUMARATE 100 MG TAB PO SCH (10:25)
[2024-06-16] MEDS: ATORVASTATIN 20 MG TAB PO SCH (10:26)
[2024-06-16] MEDS: CARVEDILOL 3.125 MG TAB PO SCH (10:27)
[2024-06-16] MEDS: LISINOPRIL 5 MG TAB PO SCH (10:29)
[2024-06-16] MEDS: FUROSEMIDE 40 MG/4 ML VIAL IV SCH (10:29)
[2024-06-16] MEDS: ACCU-CHEK COMFORT CURVE STRIP VI SCH (11:41)
[2024-06-16] MEDS: InsuLIN REG 1unit/0.01ml Soln (100units/ml) SC SCH (11:42)
[2024-06-16] MEDS: SODIUM CHLORIDE 0.9% 1,000 ML IV SCH (14:00)
[2024-06-16] MEDS: SODIUM CHLORIDE 0.9% 500 ML IV ONE (17:26)
[2024-06-16 17:36] VITALS: O2SAT 91
[2024-06-16 19:20] VITALS: PULSE 87; RESP 16; O2SAT 99
[2024-06-16] MEDS: MIDODRINE HCL 10 MG TAB PO ONE (19:38)
--- NOTE | 2024-06-16 20:32 | DVH ---
LEFT Upper Extremity Venous Duplex Clinical History: R/O left arm DVT Comparison: US BILAT LOWER DVT on DOS: 01/26/24 Technique: Duplex Doppler evaluation of the venous system of the left lower neck and upper extremity including color Doppler and spectral/pulsed waveform analysis was performed. Findings: The internal jugular vein demonstrates appropriate compressibility and waveform variability. The subclavian vein is patent on color Doppler evaluation without intraluminal thrombus and demonstra sandro waveform variability. The visualized portion of the brachiocephalic vein is patent on color Doppler evaluation without intr aluminal thrombus and demonstrates waveform variability. The axillary vein demonstrates appropriate compressibility and waveform variability. The brachial veins demonstrate appropriate compressibility and patency on Doppler evaluation. The basilic vein demonstrates is noncompressible at this time. The cephalic vein demonstrates appropriate compressibility and patency on Doppler evaluation. Impression: 1. No venous thrombus identified in the LEFT upper extremity vessels evaluated above. 2. If clinical concern/symptoms persist or worsen, short-interval follow-up study is suggested.
[2024-06-16 23:07] LABS: INR 1.7 (0.9-1.15); Prothrombin Time 17.3 sec (9.3-11.8)
[2024-06-17] VITALS (11 sets, daily range): BP systolic 100–137; BP diastolic 59–113; PULSE 69–113; RESP 14–19; TEMP 97.3–98.1; O2SAT 97–100
[2024-06-17] MEDS: IOHEXOL 350 MG/ML 100ML IJ ONE (00:26)
--- NOTE | 2024-06-17 01:35 | DVH ---
CTA Chest with intravenous contrast INDICATION: elevated ddimer Comparison Study: None available at time of dictation. TECHNIQUE: Multidetector spiral CTA of the chest was performed of the chest with intravenous contrast . PULMONARY ANGIOGRAPHY PROTOCOL was utilized using a bolus-tracking technique centered on the main p ulmonary artery. Axial, coronal and sagittal multiplanar and MIP reformats were performed. Radiation Dose : 1. Chest: CTDI volume is 28 mGy. Dose-length product is 2371 mGy*cm The dose indicators for CT are the volume Computed Tomography (CT) Dose Index (CTDIvol) and the Dose Length Product (DLP), and are measured in units of mGy and mGy-cm, respectively. These indicators are not patient dose, but values generated from the CT scanner acquisition factors. The report includes radiation exposure data for exposures received during this examination. Findings: Pulmonary artery: No pulmonary embolism. No dilation of the pulmonary trunk. No right heart strain. Lower neck: Within normal limits. Lungs: Within normal limits.. Heart/Vascular Structures: Moderate to severe cardiomegaly.. Lymph Nodes: No adenopathy Pleura: Within normal limits.. Musculoskeletal: Within normal limits.. Body wall: Mild diffuse anasarca.. Upper abdomen: Mild diffuse ascites. IMPRESSION: No pulmonary embolism. No aortic dissection or aneurysm. Moderate to severe cardiomegaly. Partially visualized upper abdomen demonstrates mild diffuse ascites . Mild anasarca.
[2024-06-17] MEDS: MORPHINE SULFATE INJ 2 MG/ml SYRG IV PRN ×2 (02:12→04:40)
--- NOTE | 2024-06-17 02:38 | ECG ---
[facility] Test Date: 2024-06-17 Test Time: 00:09:35 Pat Name: GENET ALVAREZ Department: ed Room: [address] [place] [address] Gender: M [employer] Anne[employer] Operator: [email or web address] : 1995 Requested By: TALON GOFF Order Number: [id number] Reading MD: Measurements Intervals [place] Rate: 98 P: 0 NC: 0 QRS: 76 QRSD: 130 T: 41 QT: 425 QTc: 543 Interpretive Statements Atrial fibrillation Nonspecific intraventricular conduction delay Please click the below link to view image of tracing.
[2024-06-17] MEDS ORDERED: METOPROLOL TARTRATE 1MG/1ML-5ML VIAL IV PRN (04:45)
[2024-06-17] MEDS: METOPROLOL TARTRATE 1MG/1ML-5ML VIAL IV ONE (04:49)
[2024-06-17 04:55] LABS: Basophils # (auto) 0 10 ^3/uL (0-0.2); Hemoglobin 10.2 g/dL (13.5-17.5); Monocytes # (auto) 1.4 10 ^3/uL (0-1.3)
[2024-06-17 04:58] LABS: Basophils % (auto) 0.3 % (0.0-2.0); Eosinophils # (auto) 0.1 10 ^3/uL (0-0.8); Eosinophils % (auto) 0.5 % (0.0-7.0); Hematocrit 32.9 % (41.0-53.0); Lymphocytes # (auto) 1.2 10 ^3/uL (0.4-5.4); Lymphocytes % (auto) 8.8 % (10.0-50.0); Mean Corpuscular Hemoglobin 23.9 pg (28.0-32.0); Mean Corpuscular Hgb Conc. 31.1 g/dL (32.0-36.0); Mean Corpuscular Volume 77.1 fL (80.0-100.0); Monocytes % (auto) 10.8 % (0.0-12.0); Neutrophils # (auto) 10.4 10 ^3/uL (1.6-8.6); Neutrophils % (auto) 79.6 % (37.0-80.0); Nucleated Red Blood Cells % 0.3 %; Red Blood Cells 4.26 10^6/uL (4.5-5.90); Red Cell Distribution Width 23.3 % (11.8-14.3); White Blood Cell 13.1 10^3/uL (4.4-10.8)
[2024-06-17 05:06] LABS: Anion Gap 10 (5-15); Carbon Dioxide 26 mmol/L (20-31); Potassium 4.3 mmol/L (3.5-5.1)
[2024-06-17 05:07] LABS: Calcium 9.6 mg/dL (8.7-10.4)
[2024-06-17 05:08] LABS: Platelet Count (auto) 236 10^3/uL (140-450)
[2024-06-17 05:12] LABS: BUN/Creatinine Ratio 14.6 (10.0-20.0); Glucose 93 mg/dL (74-106)
[2024-06-17 05:14] LABS: Blood Urea Nitrogen 25 mg/dL (9-23); Chloride 96 mmol/L (98-107); Sodium 132 mmol/L (136-145)
[2024-06-17] MEDS: MIDODRINE HCL 10 MG TAB PO SCH (06:00)
[2024-06-17 06:33] LABS: Platelet Estimate Adequate
[2024-06-17] MEDS: BUMETANIDE 1 MG TAB PO SCH (07:00)
--- NOTE | 2024-06-17 10:25 | DVHPN2 ---
Assessment/Plan Assessment/Plan Progress note Subjective 28 M with HFrEF and prior amphetamine use admitted for chest pain. unstable to transfer Objective Physical exam alert oriented x3 JVD midneck clear breath sounds no crackles s1 s2 irregular systolic muruumur abdomen soft nontender LE edema Lab BNP 41449 Na 132 Cl 96 Hb 10 MCV 77 trop 28 Cr 1.47 dd 2.4 EKG afib Imaging CTPE No pulmonary embolism. No aortic dissection or aneurysm. Moderate to severe cardiomegaly. Partially visualized upper abdomen demonstrates mild diffuse ascites. Mild anasarca. CXR cardiomegaly LUE doppler no DVT Point of care ultrasound done today and interpreted by me Cardiac: Dilated chambers, severely decreased contractility, IVC plethroic with excursion on inspiration, MR Lung: B-lines, not diffuse , no pleural effusion Assessment and plan chest pain acute on chronic systolic heart failure acute on chronic respiratory failure heart failure with severely reduced ejection fraction on exacerbation dilated cardiomyopathy prior methamphetamine use afib on eliquis ascites anemia microcytic DAWNA likely VMN hyponatremia delutional diurese to euvolemia resume GDMT cardio consult for ischemic workup reinforce abstinence o2 supp to keep >92 c/w eliquis iron study fluid restriction strict io daily weights Replete electrolytes Diet HH DVT prophylaxis eliquis Plan discussed with: Patient Date of Service: Jun 17, 2024 Billing Provider: TERA LEIVA MD Common Visit Codes: [id number] INP/OBS CARE(HIGH), PROCEDURE ONLY (Cardiac point of care ultrasound [id number]) TERA LEIVA MD Jun 17, 2024 10:25
--- NOTE | 2024-06-17 12:22 | DVHINCON2 ---
Date Seen: Jun 17, 2024 Referring Physician Gabriel Reason for Consultation Severe HFrEF History of Present Illness 28-year-old male with PMH for HFrEF, severe biventricular dilated cardiomyopathy, previous stroke with right-sided deficits, COPD, CKD, seizures, methamphetamine abuse, atrial fibrillation presents to the hospital with chest pain. Chest pain noted to be retrosternal, radiating up to the left, sharp in n ature, intermittent, increases with deep inspiration, associated with shortness of breath. Upon evaluation in the ER patient troponins trending negative x3, CXR showing cardiomegaly with pulmonary vascular congestion, CT angio negative for PE, did show moderate to severe cardiomegaly with partially visualized upper abdomen is demonstrating mild diffuse ascites and anasarca. Past Medical History HFrEF Severe Biventricular dilated Cardiomyopathy Methamphetamine abuse CVA Atrial Fibrillation on Eliquis Seizures Past Surgical History Deneis previous cardiac surgeries Family History: Patient reports no known family medical history. Family History Denies pertinent family cardiac history Social History Denies tobacco or alcohol use. Patient has history of illicit drug use with methamphetamines the patient endorses no recent use with last use last admission. Allergies: Coded Allergies: Nitroglycerin (Verified Allergy, Unknown, 03/13/24) Home Meds Active Scripts Empagliflozin (Jardiance) 10 Mg Tab, 10 MG PO DAILY for 30 Days, #30 TAB 3 Refills Prov:SHADE ROWLEY DO 04/02/24 Carvedilol (COREG) 3.125 Mg Tab, 3.125 MG PO Q12HR for 30 Days, #60 TAB 4 Refills Prov:SHADE ROWLEY DO 04/02/24 Hydrocodone-Acetaminophen (Hydrocodone Bitartrate/AC 5-325 mg) 1 Tab Tab, 1 TAB PO Q8HP PRN for 5 Days, #15 TAB Prov:JASSON [place] [employer]ING [employer]OUND BLENDER 03/16/24 Bumetanide (Bumetanide) 1 Mg Tab, 1 MG PO QAM for 30 Days, #30 TAB 1 Refill Prov:JASSON [place] [employer] BL[employer]ER 03/16/24 Spironolactone (Aldactone) 25 Mg Tab, 12.5 MG PO DAILY for 30 Days, #15 TAB Prov:SHELBY [place]CA[place] RESIDENT 02/27/24 Reported Medications Valproic Acid (Valproic Acid) 250 Mg Cap, 250 MG PO, CAP 03/14/24 Levetiracetam (KEPPRA TABLET) 500 Mg Tb, 500 MG PO BID, TAB 03/14/24 Pantoprazole Sodium (PANTOPRAZOLE SODIUM) 40 Mg Inj, 40 MG IV DAILY, INJ 03/03/24 Dapagliflozin Propanediol (Farxiga) 10 Mg Tab, 10 MG PO DAILY, TAB 03/03/24 Quetiapine Fumerate (QUETIAPINE FUMARATE) 100 Mg Tab, 1 TAB PO DAILY 01/25/24 Levetiracetam (Levetiracetam) 500 Mg Tab, 1 TAB PO BID 01/25/24 Lisinopril (Lisinopril) 2.5 Mg Tab, 1 TAB PO DAILY 01/25/24 Apixaban Base (ELIQUIS) 5 Mg Tab, 1 TAB PO BID 01/25/24 Atorvastatin Calcium (ATORVASTATIN CALCIUM) 40 Mg Tab, 1 TAB PO DAILY 01/25/24 Current Medications Current Medications Medications (Trade) Dose Ordered Sig/Mickey Route PRN Reason Start Time Stop Time Status Last Admin Bumetanide (Bumex Tablet) 1 mg QAM PO 06/17/24 07:00 06/17/24 10:25 DC 06/17/24 07:00 Sodium Chloride 1,000 ml @ 75 mls/hr [id number] IV 06/16/24 14:00 06/17/24 10:25 DC 06/17/24 05:30 Midodrine (Proamatine Tablet) 10 mg TID@0600,1200,1800 PO 06/17/24 06:00 Morphine Sulfate 2 mg Q4HPRN PRN IV MODERATE PAIN (4-6 PAIN SCALE) 06/17/24 04:30 06/17/24 11:10 Metoprolol Tartrate (Lopressor) 2.5 mg Q6HPRN PRN IV HEART RATE GREATER THAN 140 06/17/24 04:45 06/17/24 10:25 WI Review of Systems Constitutional: No: Fever, Chills, Sweats, , Other positive: Weakness, Malaise Eyes: No: Pain, Vision change, Conjunctivae inflammation, Eyelid inflammation, Other, Redness ENT: No: Ear pain, Ear discharge, Nose pain, Nose discharge, Nose congestion, Mouth pain, Mouth swelling, Throat pain, Throat swelling, Other Respiratory: No: Cough, Dry, , Wheezing, Hemoptysis, Pleuritic Pain, Sputum, Wheezing, Other positive: Shortness of breath, SOB with exertion Cardiovascular: ; No: Paroxysmal Noc. Dyspnea, Edema, Lt Headedness, Other positive: Chest Pain Palpitations, Orthopnea, Gastrointestinal: No: Nausea, Vomiting, Abdominal Pain, Diarrhea, Constipation, Melena, Hematochezia, Other Genitourinary: No Dysuria, No Frequency, No Incontinence, No Hematuria, No Retention, No Other Musculoskeletal: neck pain; No: other, shoulder pain, arm pain, back pain, hand pain, leg pain, foot pain Skin: No: Rash, Lesions, Jaundice, Bruising, Other positive: Left arm burn Neurological: Other (Dizziness, headache.); No: Weakness, Numbness, Incoordination, Change in speech, Confusion, Seizures positive: Right-sided weakness Vital Signs Vital Signs Date Time Temp Pulse Resp B/P (MAP) Pulse Ox O2 Delivery O2 Flow Rate FiO2 06/17/24 11:40 117 15 124/72 06/17/24 09:40 97 Nasal Cannula* 3 32 06/16/24 19:20 97.7 97.7 Physical Exam General appearance: Ill-appearing, in mild acute distress. HEENT: Exam shows: Normocephalic, atraumatic, PERRLA, EOMI Neck: Supple, no bruits Chest: Equal chest excursion bilaterally. Breath sounds rales Heart: Rhythm: Regular rate; tachycardia murmur Abdomen: Exam shows: Soft, nontender, distended Musculoskeletal: No clubbing, no cyanosis, no lower extremity edema Dermatology: Skin warm, moist. Neurological: Exam shows: Sleepy and oriented x4, normal speech Available prior records, labs, EKG, rhythm strips reviewed and interpreted Labs/Diagnostic Data Labs Test 06/17/24 04:44 06/16/24 22:30 06/16/24 19:35 06/16/24 09:24 Range/Units White Blood Count 13.1 H 4.4-10.8 10^3/uL Red Blood Count 4.26 L 4.5-5.90 10^6/uL Hemoglobin 10.2 L 13.5-17.5 g/dL Hematocrit 32.9 L 41.0-53.0 % Mean Corpuscular Volume 77.1 L 80.0-100.0 fL Mean Corpuscular Hemoglobin 23.9 L 28.0-32.0 pg Mean Corpuscular Hemoglobin Concent 31.1 L 32.0-36.0 g/dL Red Cell Distribution Width 23.3 H 11.8-14.3 % Platelet Count 236 # 140-450 10^3/uL Mean Platelet Volume 9.1 6.9-10.8 fL Neutrophils (%) (Auto) 79.6 37.0-80.0 % Lymphocytes (%) (Auto) 8.8 L 10.0-50.0 % Monocytes (%) (Auto) 10.8 0.0-12.0 % Eosinophils (%) (Auto) 0.5 0.0-7.0 % Basophils (%) (Auto) 0.3 0.0-2.0 % Neutrophils # (Auto) 10.4 H 1.6-8.6 10 ^3/uL Lymphocytes # (Auto) 1.2 0.4-5.4 10 ^3/uL Monocytes # (Auto) 1.4 H 0-1.3 10 ^3/uL Eosinophils # (Auto) 0.1 0-0.8 10 ^3/uL Basophils # (Auto) 0 0-0.2 10 ^3/uL Nucleated Red Blood Cells 0.3 % Platelet Estimate Adequate Sodium Level 132 L 136-145 mmol/L Potassium Level 4.3 3.5-5.1 mmol/L Chloride Level 96 L 98-107 mmol/L Carbon Dioxide Level 26 20-31 mmol/L Anion Gap 10 5-15 Blood Urea Nitrogen 25 H 9-23 mg/dL Creatinine 1.71 H 0.700-1.30 mg/dL Glomerular Filtration Rate Calc 55 >90 mL/min BUN/Creatinine Ratio 14.6 10.0-20.0 Serum Glucose 93 74-106 mg/dL Calcium Level 9.6 8.7-10.4 mg/dL Prothrombin Time 17.3 H 9.3-11.8 sec Prothrombin Time INR 1.70 H 0.9-1.15 Activated Partial Thromboplast Time 33.0 24.5-34.5 SEC D-Dimer, Quantitative 2.54 H 0.0-0.49 mg/L FEU POC Glucose 84 70-106 mg/dl Troponin I High Sensitivity 29 </=54 ng/L Test 06/16/24 09:05 06/16/24 06:36 Range/Units Urine Color Yellow Yellow Urine Clarity Clear Clear Urine pH 5.5 5.0-9.0 Urine Specific Calcium 1.022 1.001-1.035 Urine Protein 1+ H Negative Urine Ketones Trace Negative Urine Blood Negative Negative /uL Urine Nitrite Negative Negative Urine Bilirubin 1+ Negative Urine Urobilinogen 12 H Negative mg/dL Urine Leukocyte Esterase Negative Negative /uL Urine RBC 1 0 - 3 /hpf Urine WBC 1 0 - 3 /hpf Urine Squamous Epithelial Cells None seen <5 /hpf Urine Bacteria None seen None Seen /hpf Urine Glucose Normal Normal mg/dL Clumped Platelets Moderate Hypochromasia (manual) Slight Anisocytosis (manual) Slight Microcytosis Slight B-Type Natriuretic Peptide 2349.18 0-100 pg/mL Assessment Chest Pain Acute on chronic HFrEF Severe Dilated Cardiomyopathy CVA Acute Hypoxic Respiratory Failure Paroxysmal Atrial Fibrillation Hx Methamphetamine abuse DAWNA on CKD HX seizures Plan/Recommendation * Recent ECHO 03/2024 showed EF 10%, moderate to severe TR and MR. Pulmonary HTN. * Continue diuresis. Continue GDMT as tolerated. * Plan for ischemic workup with coronary angiogram in a.m., cardiac catheterization +/- PCI. All risks, benefits, and alternatives of cardiac catheterization explained to the patient including the risk of stroke, VA, , coronary perforation, pericardial tamponade, contrast induced nephropathy, need for emergent CABG, mechanical support, mechanical ventilation, and bleeding from vascular complications from the procedure. Denis gipson is agreeable to proceed with procedure. NPO after midnight. * Currently sinus rhythm. Continue tele monitoring. Jadon held with plan for coronary angiogram. Case Discussed with Dr Luna. Patient continued having intermittent chest pain. Troponin negative. Patient has not been able to follow up with certified travel counselor Bertha due to transportation. Continue with ischemic workup with coronary angiogram in a.m.. NPO after midnight. Plan of care discussed with patient and is agreeable. Continue the GDMT for severe cardiomyopathy. Continue diuresis. Jadon held for now in planning for angiogram in a.m.. Critical care, time spent: 46 minutes This medical document was created using an electronic medical record system with voice recognition software and computerized dictation system. Although this document has been carefully reviewed, there might still be some phonetic and typographical errors. Occasional wrong-word or ``sound-alike substitutions may have occurred due to the inherent limitations of voice recognition software. These areas are purely typographical due to imperfections of the software programs and do not reflect any compromise in the patient's medical care. Please read the chart carefully and recognize, using context, where these s ubstitutions have occurred. Plan discussed with: Patient Date of Service: Jun 17, 2024 Billing Provider: REG GODINEZ Cardiology Common Codes: [id number] INP/OBS CARE (High), [id number] CARE 30-74 MIN REG GODINEZ Jun 17, 2024 12:21
[2024-06-18] VITALS (20 sets, daily range): BP systolic 88–133; BP diastolic 49–84; PULSE 58–118; RESP 12–26; TEMP 98.2–98.6; O2SAT 95–100
[2024-06-18] MEDS: BUMETANIDE 2.5mg/10ml (0.25 mg/ml) INJ IV SCH (05:55)
[2024-06-18 05:56] LABS: Basophils # (auto) 0.1 10 ^3/uL (0-0.2); Basophils % (auto) 0.7 % (0.0-2.0); Nucleated Red Blood Cells % 0.1 %
[2024-06-18 06:02] LABS: Eosinophils # (auto) 0.1 10 ^3/uL (0-0.8); Eosinophils % (auto) 0.5 % (0.0-7.0); Hematocrit 27.9 % (41.0-53.0); Hemoglobin 8.8 g/dL (13.5-17.5); Lymphocytes % (auto) 9.5 % (10.0-50.0); Mean Corpuscular Hgb Conc. 31.5 g/dL (32.0-36.0); Mean Corpuscular Volume 76.1 fL (80.0-100.0); Monocytes # (auto) 1.3 10 ^3/uL (0-1.3); Monocytes % (auto) 12.4 % (0.0-12.0); Neutrophils % (auto) 76.9 % (37.0-80.0); Red Blood Cells 3.66 10^6/uL (4.5-5.90); White Blood Cell 10.4 10^3/uL (4.4-10.8)
[2024-06-18 06:11] LABS: Calcium 8.9 mg/dL (8.7-10.4); Potassium 3.8 mmol/L (3.5-5.1)
[2024-06-18 06:12] LABS: Anion Gap 9 (5-15); Carbon Dioxide 27 mmol/L (20-31)
[2024-06-18 06:17] LABS: BUN/Creatinine Ratio 18.9 (10.0-20.0); Glucose 83 mg/dL (74-106)
[2024-06-18 06:18] LABS: Magnesium 1.9 mg/dL (1.6-2.6)
[2024-06-18 06:19] LABS: Phosphorus 3.8 mg/dL (2.4-5.1)
[2024-06-18 06:21] LABS: Blood Urea Nitrogen 28 mg/dL (9-23); Chloride 97 mmol/L (98-107); Sodium 133 mmol/L (136-145)
[2024-06-18 07:18] LABS: Red Cell Distribution Width 23.1 % (11.8-14.3)
[2024-06-18 07:19] LABS: Platelet Count (auto) 136 10^3/uL (140-450)
[2024-06-18 08:16] LABS: Anisocytosis Slight; Hypochromia Slight; Platelet Estimate Decreased
[2024-06-18] MEDS: IODIXANOL 320MG/ML 100ML BTL IV ONE (13:07)
[2024-06-18] MEDS: fentaNYL CITRATE 100 MCG/2 ML VL ONE (13:19)
[2024-06-18] MEDS: ANGIOMAX 250 MG VIAL IV ONE (13:19)
[2024-06-18] MEDS: HEPARIN SODIUM (PORCINE) 5000 UNITS/ML 1ML VIAL ONE (13:19)
[2024-06-18] MEDS: VERAPAMIL 2.5MG/ML INJ 2ML VIAL IV ONE (13:19)
[2024-06-18] MEDS: MIDAZOLAM HCL 2MG/2ML 2ml VIAL (1mg/ml) ONE (13:19)
[2024-06-18] MEDS: LIDOCAINE 2%HCL (LOCAL ANESTH.) INJ 20ML MDV ONE (13:20)
[2024-06-18] MEDS: SODIUM CHL 0.9% 0 ML ONE (13:20)
--- NOTE | 2024-06-18 13:53 | DVHPN2 ---
Progress Note Date Seen: Jun 18, 2024 Medical Necessity Reason Pt with a Central, PICC or Fol: No Subjective Patient reports: Feels better Other Systems: sp cath Objective vital signs Vital Sign Date Time Temp Pulse Resp B/P (MAP) Pulse Ox O2 Delivery O2 Flow Rate FiO2 06/18/24 10:00 100 Nasal Cannula 3.0 06/18/24 10:00 32 06/18/24 09:45 98/49 06/18/24 09:45 90 06/18/24 09:00 98.6 18 98.6 Total Intake and Output 06/17/24 06/17/24 06/18/24 15:00 23:00 07:00 Intake Total 150 ml Output Total 0 ml Balance 150 ml medications Current Medications Medications Dose Ordered Sig/Mickey Route Start Time Stop Time Status Last Admin Dose Admin Carvedilol 3.125 mg Q12HR PO 06/16/24 10:00 06/17/24 10:15 3.125 MG Levetiracetam 500 mg BID PO 06/16/24 10:00 06/17/24 21:10 500 MG Pantoprazole Sodium 40 mg DAILY IV 06/16/24 10:00 06/17/24 10:15 40 MG Quetiapine Fumarate 100 mg DAILY PO 06/16/24 10:00 06/17/24 10:16 100 MG Spironolactone 12.5 mg DAILY PO 06/16/24 10:00 06/17/24 10:15 12.5 MG Atorvastatin Calcium 40 mg DAILY PO 06/16/24 10:00 06/17/24 10:15 40 MG Lisinopril 2.5 mg DAILY PO 06/16/24 10:00 06/17/24 10:16 2.5 MG Albuterol 2.5 mg Q4HPRN PRN NEB 06/16/24 08:45 Ipratropium [place] 0.5 mg Q4HPRN PRN NEB 06/16/24 08:45 Diagnostic Test (Pha) 1 strip IQ4HR 06/16/24 12:00 06/18/24 11:40 1 STRIP Insulin Human Regular IQ4HR SC 06/16/24 12:00 Dextrose 50 ml UD PRN IV 06/16/24 08:45 Aspirin 81 mg DAILY PO 06/16/24 10:00 06/17/24 10:15 81 MG Acetaminophen 650 mg Q6HP PRN PO 06/16/24 08:45 Al Hydrox/Mg Hydrox/Simethicone 30 ml Q6HP PRN PO 06/16/24 08:45 Midodrine 10 mg TID@0600,1200,1800 PO 06/17/24 06:00 06/18/24 12:17 10 MG Morphine Sulfate 2 mg Q4HPRN PRN IV 06/17/24 04:30 06/17/24 20:39 2 MG Bumetanide 1 mg BIDD IV 06/18/24 06:00 06/18/24 05:55 1 MG Examination: GENERAL:Abnormal, HEENT:Abnormal, LUNGS:Abnormal, CVS:Abnormal, ABDOMEN:Abnormal laboratory and microbiology Laboratory Tests 06/18/24 05:00 Test 06/18/24 05:00 Range/Units Serum Glucose 83 74-106 mg/dL Microbiology Date/Time Source Procedure Growth Status 06/18/24 07:57 Nose MRSA Screen - Final Complete Problem List/Assessment/Plan Problem List/Assessment/Plan end stage NICM--- lvedp is elevated at 24, no severe cad bp 80s consider adding midodrine beta alexx if tolerable, prob not stable for entresto can add jardiance lasix fu with Oris4 cards pt will likely do very poorly or with continued meth abuse he is aware Plan discussed with: Patient My Orders My Orders Orders - ANA BARRAGAN MD Procedure Category Date Status Time Cl Left Heart Cath CL 06/18/24 Taken 08:43 Date of Service: Jun 18, 2024 Billing Provider: ANA BARRAGAN MD Common Visit Codes: NOT BILLABLE ANA BARRAGAN MD Jun 18, 2024 13:53
--- NOTE | 2024-06-18 14:00 | DVHOP2 ---
Operative Report [facility] Operative Report Patient Name: Lissette Finney Unit Number: [id number] Date of : 01/25/1957 Patient Status: Admitted Inpatient Attending Doctor: Michael Avila MD Operative Report Operative Report Operative Report CARDIAC [employer] PROCEDURE REPORT [facility], [place], [place] Date of Service: 06/18/24 Floor Surfacer: Ana Barragan MD PROCEDURES PERFORMED: Coronary angiogram, left heart catheterization, conscious sedation administration and supervision, less than 15 minutes; fluoroscopy use and interpretation. PREOPERATIVE DIAGNOSES: severe chf,r/o ischemic heart disease POSTOP DIAGNOSIS: NICM DESCRIPTION OF PROCEDURE: The patient or appropriate family signed informed consent understanding the risks, benefits and alternatives of the procedure, they wished to proceed. The patient was brought to the cardiac lab support service tech in [place]. state. The patient was prepped in a sterile fashion. Sedation was used per cardiac cath protocol. I administered 2 mL of 2% lidocaine to the right wrist. With an antegrade front wall puncture. I cannulated the right radial artery and placed a 6-[place] slender. Next, an intra-arterial spasmolytic was administered. Next, a - 5 [place] cath eter and were used for coronary angiogram and LVEDP measurement and pressure pullback. At the completion of procedure, all guides and wires were removed, and there were no immediate complications. FINDINGS: RCA: Moderate vessel off the right sinus of Valsalva, there is no severe flow limiting stenosis. LEFT MAIN: large size left main, it bifurcates into LAD and circumflex. no severe stenosis. CIRCUMFLEX: Moderate caliber vessel coming off the left main with no flow limiting stenosis. LAD: LAD is a moderate caliber vessel coming of the left main. no severe stenosis LVEDP of 23 mmhg sbp 80-90 CONCLUSIONS: 1. end stage NICM 2. elevated LVEDP PLAN: Aggressive risk factor modification and medical management for the patient. consider midodrine consider jardiance and diuretics as tolerable poor prognosis ANA BARRAGAN MD Jun 18, 2024 13:59 ANA BARRAGAN MD Jun 18, 2024 14:00
--- NOTE | 2024-06-18 20:58 | DVHPN2 ---
Assessment/Plan Assessment/Plan Progress note Subjective 28 M with HFrEF and prior amphetamine use admitted for chest pain. s/p [facility] today, end stage NICM. continue medical management, stable to transfer to [place] Objective Physical exam alert oriented x3 JVD midneck clear breath sounds no crackles s1 s2 irregular systolic muruumur abdomen soft nontender LE edema Lab BNP 29739 Na 132 Cl 96 Hb 10 MCV 77 trop 28 Cr 1.47 dd 2.4 EKG afib Imaging CTPE No pulmonary embolism. No aortic dissection or aneurysm. Moderate to severe cardiomegaly. Partially visualized upper abdomen demonstrates mild diffuse ascites. Mild anasarca. CXR cardiomegaly LUE doppler no DVT Point of care ultrasound done today and interpreted by me Cardiac: Dilated chambers, severely decreased contractility, IVC plethroic with excursion on inspiration, MR Lung: B-lines, not diffuse , no pleural effusion Assessment and plan chest pain acute on chronic systolic heart failure acute on chronic respiratory failure heart failure with severely reduced ejection fraction on exacerbation dilated cardiomyopathy prior methamphetamine use afib on eliquis ascites LYNN DAWNA likely VMN hyponatremia delutional diurese to euvolemia resume GDMT cardio consult appreciated, for [facility] reinforce abstinence o2 supp to keep >92 c/w eliquis iron study fluid restriction strict io daily weights iv venofer Replete electrolytes Diet HH DVT prophylaxis eliquis Plan discussed with: Patient My Orders Orders - TERA LEIVA MD Procedure Category Date Status Time * Online Marketing Strategist CONS 06/18/24 Transmitted Consult Complete Blood Count LAB 06/19/24 Verified 04:00 Basic Metabolic Panel LAB 06/19/24 Verified 04:00 Date of Service: Jun 18, 2024 Billing Provider: TERA LEIVA MD Common Visit Codes: [id number] INP/OBS CARE(HIGH) TERA LEIVA MD Jun 18, 2024 20:58
[2024-06-19] VITALS (12 sets, daily range): BP systolic 75–113; BP diastolic 37–81; PULSE 56–122; RESP 14–24; TEMP 97.4–98.1; O2SAT 95–100
[2024-06-19] MEDS: ACETAMINOPHEN 325 MG TAB PO PRN (04:54)
[2024-06-19 06:37] LABS: Alanine Aminotransferase 27 U/L (7-40); Anion Gap 9 (5-15); BUN/Creatinine Ratio 17.8 (10.0-20.0); Calcium 8.8 mg/dL (8.7-10.4); Carbon Dioxide 25 mmol/L (20-31)
[2024-06-19 06:39] LABS: Albumin 3.3 g/dL (3.2-4.8); Total Protein 6.5 g/dL (5.7-8.2)
[2024-06-19 06:40] LABS: Alkaline Phosphatase 142 U/L (46-116); Aspartate Aminotransferase 49 U/L (13-40); Bilirubin, Total 2.2 mg/dL (0.2-1.0); Blood Urea Nitrogen 26 mg/dL (9-23); Chloride 95 mmol/L (98-107); Glucose 114 mg/dL (74-106); Sodium 129 mmol/L (136-145)
[2024-06-19] MEDS: IPRATROPIUM BROM 0.5 MG/2.5ML INH SOL NEB PRN (07:05)
[2024-06-19] MEDS: ALBUTEROL SULF 2.5 MG/0.5ML(0.5%) NEB SOLN NEB PRN (07:05)
[2024-06-19 07:28] LABS: Benzodiazephine Screen, Urine Pos (NEGATIVE); Cannabinoid Screen, Urine Neg (NEGATIVE); Opiate Scree,Urine Pos (NEGATIVE)
[2024-06-19 07:41] LABS: Amphetamine Screen, Urine Neg (NEGATIVE); Barbiturate Scree,Urine Neg (NEGATIVE); Cocaine Screen, Urine Neg (NEGATIVE); Phencyclidine Screen, Urine Neg (NEGATIVE)
[2024-06-19 07:56] LABS: Basophils # (auto) 0.1 10 ^3/uL (0-0.2); Basophils % (auto) 0.8 % (0.0-2.0); Eosinophils # (auto) 0 10 ^3/uL (0-0.8); Hemoglobin 9.2 g/dL (13.5-17.5); Lymphocytes # (auto) 1.2 10 ^3/uL (0.4-5.4)
[2024-06-19 07:57] LABS: Eosinophils % (auto) 0.2 % (0.0-7.0); Hematocrit 30.1 % (41.0-53.0); Lymphocytes % (auto) 11.3 % (10.0-50.0); Mean Corpuscular Hemoglobin 23.4 pg (28.0-32.0); Mean Corpuscular Hgb Conc. 30.6 g/dL (32.0-36.0); Mean Corpuscular Volume 76.6 fL (80.0-100.0); Monocytes # (auto) 1.6 10 ^3/uL (0-1.3); Monocytes % (auto) 15.7 % (0.0-12.0); Neutrophils # (auto) 7.4 10 ^3/uL (1.6-8.6); Nucleated Red Blood Cells % 0.2 %; Red Blood Cells 3.93 10^6/uL (4.5-5.90); White Blood Cell 10.3 10^3/uL (4.4-10.8)
[2024-06-19 08:00] LABS: Red Cell Distribution Width 23.7 % (11.8-14.3)
[2024-06-19 09:40] LABS: Platelet Estimate Adequate
[2024-06-19 09:41] LABS: Hypochromia Moderate
[2024-06-19 09:42] LABS: Anisocytosis Slight
[2024-06-19] MEDS: EMPAGLIFLOZIN 10 MG TAB PO SCH (10:26)
[2024-06-19 11:23] LABS: Platelet Count (auto) 260 10^3/uL (140-450)
[2024-06-19] MEDS: IRON SUCROSE COMPLEX 110 ML IV SCH (12:41)
--- NOTE | 2024-06-19 14:47 | ECG ---
[facility] Test Date: 2024-06-17 Test Time: 04:52:09 Pat Name: GENET ALVAREZ Department: ER Room: 0279T Gender: M Muck Boss: : 1995 Requested By: RYAN LORENZANA Order Number: [id number] Reading MD: Measurements Intervals [place] Rate: 116 P: 0 OK: 0 QRS: -26 QRSD: 129 T: 28 QT: 374 QTc: 520 Interpretive Statements Atrial flutter Nonspecific intraventricular conduction delay Consider anterior infarct Please click the below link to view image of tracing.
--- NOTE | 2024-06-19 14:59 | DVHDS2 ---
Discharge Summary Date of Admission Jun 16, 2024 at 08:40 Date of Discharge: Jun 19, 2024 Labs/Diagnostic Data: Laboratory Results Test 06/19/24 10:36 06/19/24 06:50 06/19/24 05:20 06/18/24 05:00 POC Glucose 146 mg/dl (70-106) Urine Opiates Screen Pos (NEGATIVE) Urine Fentanyl Screen Neg (NEGATIVE) Urine Barbiturates Screen Neg (NEGATIVE) Urine Phencyclidine Screen Neg (NEGATIVE) Urine Amphetamines Screen Neg (NEGATIVE) Urine Benzodiazepines Screen Pos (NEGATIVE) Urine Cocaine Screen Neg (NEGATIVE) Urine Cannabinoids Screen Neg (NEGATIVE) White Blood Count 10.3 10^3/uL (4.4-10.8) Red Blood Count 3.93 10^6/uL (4.5-5.90) Hemoglobin 9.2 g/dL (13.5-17.5) Hematocrit 30.1 % (41.0-53.0) Mean Corpuscular Volume 76.6 fL (80.0-100.0) Mean Corpuscular Hemoglobin 23.4 pg (28.0-32.0) Mean Corpuscular Hemoglobin Concent 30.6 g/dL (32.0-36.0) Red Cell Distribution Width 23.7 % (11.8-14.3) Platelet Count 260 10^3/uL (140-450) Mean Platelet Volume 7.7 fL (6.9-10.8) Neutrophils (%) (Auto) 72.0 % (37.0-80.0) Lymphocytes (%) (Auto) 11.3 % (10.0-50.0) Monocytes (%) (Auto) 15.7 % (0.0-12.0) Eosinophils (%) (Auto) 0.2 % (0.0-7.0) Basophils (%) (Auto) 0.8 % (0.0-2.0) Neutrophils # (Auto) 7.4 10 ^3/uL (1.6-8.6) Lymphocytes # (Auto) 1.2 10 ^3/uL (0.4-5.4) Monocytes # (Auto) 1.6 10 ^3/uL (0-1.3) Eosinophils # (Auto) 0 10 ^3/uL (0-0.8) Basophils # (Auto) 0.1 10 ^3/uL (0-0.2) Nucleated Red Blood Cells 0.2 % Platelet Estimate Adequate Hypochromasia (manual) Moderate Anisocytosis (manual) Slight Microcytosis Slight Sodium Level 129 mmol/L (136-145) Potassium Level 4.0 mmol/L (3.5-5.1) Chloride Level 95 mmol/L (98-107) Carbon Dioxide Level 25 mmol/L (20-31) Anion Gap 9 (5-15) Blood Urea Nitrogen 26 mg/dL (9-23) Creatinine 1.46 mg/dL (0.700-1.30) Glomerular Filtration Rate Calc 66 mL/min (>90) BUN/Creatinine Ratio 17.8 (10.0-20.0) Serum Glucose 114 mg/dL (74-106) Calcium Level 8.8 mg/dL (8.7-10.4) Total Bilirubin 2.2 mg/dL (0.2-1.0) Aspartate Amino Transferase (AST) 49 U/L (13-40) Alanine Aminotransferase (ALT) 27 U/L (7-40) Alkaline Phosphatase 142 U/L (46-116) Total Protein 6.5 g/dL (5.7-8.2) Albumin 3.3 g/dL (3.2-4.8) Clumped Platelets Few Phosphorus Level 3.8 mg/dL (2.4-5.1) Magnesium Level 1.9 mg/dL (1.6-2.6) Iron Level 23 ug/dL (65-175) Total Iron Binding Capacity 229 ug/dL (250-425) Percent Iron Saturation 10.0 % (20-55) Ferritin 51.3 ng/mL (22-322) Test 06/16/24 22:30 06/16/24 09:24 06/16/24 09:05 06/16/24 06:36 Prothrombin Time 17.3 sec (9.3-11.8) Prothrombin Time INR 1.70 (0.9-1.15) Activated Partial Thromboplast Time 33.0 SEC (24.5-34.5) D-Dimer, Quantitative 2.54 mg/L FEU (0.0-0.49) Troponin I High Sensitivity 29 ng/L (</=54) Urine Color Yellow (Yellow) Urine Clarity Clear (Clear) Urine pH 5.5 (5.0-9.0) Urine Specific [place] 1.022 (1.001-1.035) Urine Protein 1+ (Negative) Urine Ketones Trace (Negative) Urine Blood Negative /uL (Negative) Urine Nitrite Negative (Negative) Urine Bilirubin 1+ (Negative) Urine Urobilinogen 12 mg/dL (Negative) Urine Leukocyte Esterase Negative /uL (Negative) Urine RBC 1 /hpf (0 - 3) Urine WBC 1 /hpf (0 - 3) Urine Squamous Epithelial Cells None seen /hpf (<5) Urine Bacteria None seen /hpf (None Seen) Urine Glucose Normal mg/dL (Normal) B-Type Natriuretic Peptide 2349.18 pg/mL (0-100) Other Laboratory Tests 06/19/24 05:20 Brief Hx & Hospital Course: 28 M with chest pain, HFrEF cirrhosis DAWNA found to have chest pain, s/p LHC with non obs. stable to transfer for continuity of care. Condition at Discharge: Fair Final Diagnosis/Problems List chest pain acute on chronic systolic heart failure acute on chronic respiratory failure heart failure with severely reduced ejection fraction on exacerbation dilated cardiomyopathy prior methamphetamine use afib on eliquis ascites LYNN DAWNA likely VMN hyponatremia delutional Discharge Disposition: Acute Care Facility 37 Discharge Statement: "Patient was advised to return to the ER or call 911 if any headaches, dizziness, shortness of breath, chest pain, abdominal pain, bleeding, fevers, or worsening of medical condition. Patient was counseled about treatment plan, medications, possible side effects, patientverbalized understanding. All questions were answered to the best of my ability. This discharge took greater then 30 minutes in planning, reviewing documentation, counseling the patient, and discussing with other team members." ASSESSMENT ASSESSMENT Assessment chest pain acute on chronic systolic heart failure acute on chronic respiratory failure heart failure with severely reduced ejection fraction on exacerbation dilated cardiomyopathy prior methamphetamine use afib on eliquis ascites LYNN DAWNA likely VMN hyponatremia delutional Date of Service: Jun 19, 2024 Billing Provider: TERA LEIVA MD Common Visit Codes: [id number] DISCH DAY >30min TERA LEIVA MD Jun 19, 2024 14:59
--- NOTE | 2024-06-20 09:52 | ECG ---
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
== END 2024-06-19 20:10 | disposition short-term general hospital (02) | DRG 286 ==
LOC: ER 05:43 → TELE 08:40 → TELE-WESTW 06-17 17:30
PROVIDERS: ADMIT Hospitalist; ATTEND Student in an Organized Health Care Education/Training Program
PROC: 5A09357 Assistance with Respiratory Ventilation, Less than 24 Consecutive Hours, Continuous Positive Airway Pressure (ICD-10-PCS; 2024-06-17)
PROC: 4A023N7 Measurement of Cardiac Sampling and Pressure, Left Heart, Percutaneous Approach (ICD-10-PCS; principal; 2024-06-18)
PROC: B211YZZ Fluoroscopy of Multiple Coronary Arteries using Other Contrast (ICD-10-PCS; 2024-06-18)
PROC: 5A09357 Assistance with Respiratory Ventilation, Less than 24 Consecutive Hours, Continuous Positive Airway Pressure (ICD-10-PCS; 2024-06-18)
PROC: 5A09357 Assistance with Respiratory Ventilation, Less than 24 Consecutive Hours, Continuous Positive Airway Pressure (ICD-10-PCS; 2024-06-19)
DX: I13.0 Hypertensive heart and chronic kidney disease with heart failure and stage 1 through stage 4 chronic kidney disease, or unspecified chronic kidney disease (principal); I50.43 Acute on chronic combined systolic (congestive) and diastolic (congestive) heart failure; J96.21 Acute and chronic respiratory failure with hypoxia; N17.0 Acute kidney failure with tubular necrosis; E87.1 Hypo-osmolality and hyponatremia; R18.8 Other ascites; I42.0 Dilated cardiomyopathy; D50.9 Iron deficiency anemia, unspecified; F15.10 Other stimulant abuse, uncomplicated; I48.0 Paroxysmal atrial fibrillation; N18.9 Chronic kidney disease, unspecified; J44.9 Chronic obstructive pulmonary disease, unspecified; I25.10 Atherosclerotic heart disease of native coronary artery without angina pectoris; I42.8 Other cardiomyopathies; R73.9 Hyperglycemia, unspecified; I27.20 Pulmonary hypertension, unspecified; I07.1 Rheumatic tricuspid insufficiency; K74.60 Unspecified cirrhosis of liver; Z79.01 Long term (current) use of anticoagulants; I69.30 Unspecified sequelae of cerebral infarction
CPT/HCPCS: 36415; 71045; 71275; 80048; 80053; 80307; 81001; 82728; 82962; 83540; 83550; 83735; 83880; 84100; 84484; 85025; 85379; 85610; 85730; 86850; 86900; 86901; 87081; 93005; 93458; 93971; 94640; 94660; 99152; 99291; G0378; J1756; J2250; J2405; J2470; Q9967

== ENCOUNTER 2024-06-25 15:06 | Emergency (ER) | payer MEDICAID, OTHER ==
[~2024-06-25] VITALS: Ht 188 cm; Wt 100.0 kg
[~2024-06-25 15:06] MED LIST changes: -HYDR-4902 PO
[2024-06-25] MEDS: SODIUM CHLORIDE 0.9% 1,000 ML IV ONE (16:08)
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
--- NOTE | 2024-06-25 16:52 | DVH ---
XY L HAND 3V XRAY, INDICATION: swelling edema TECHNICAL DATA: Frontal, oblique and lateral views were obtained of the left hand. COMPARISON: None FINDINGS: No fracture is identified. Joint spaces are maintained. Alignment is anatomic. Soft tissues are swoll en at the dorsum of the hand. IMPRESSION: No acute fracture or dislocation of the left hand.
--- NOTE | 2024-06-25 16:53 | DVH ---
CLINICAL INDICATION: swollen pain TECHNIQUE: XY L ELBOW 3 VIEW XRAY Comparison: None FINDINGS/IMPRESSION: : Limited examination secondary to suboptimal lateral view and patient positioning. There is no evidence of acute fracture or dislocation. Diffuse soft-tissue swelling and edema.
--- NOTE | 2024-06-25 16:53 | DVH ---
XY CHEST TWO VIEWS ROUTINE, HISTORY: chf COMPARISON: XY CHEST TWO VIEWS ROUTINE on DOS: 03/30/24 XY CHEST TWO VIEWS ROUTINE on DOS: 03/30/24 TECHNICAL DATA: 1 view of the chest was obtained. FINDINGS: Lines and tubes: None Cardiomediastinal silhouette: Prominent Pulmonary vasculature: normal Lung expansion: low Lung airspace: Patchy left basilar opacities. Lung interstitium: normal Pleura: normal Pneumothorax: no Bones: Unremarkable Other: no IMPRESSION: Cardiomegaly and pericardial effusion is a possibility. Patchy left basilar opacities.
[2024-06-25 17:54] LABS: Hematocrit 31.4 % (41.0-53.0); Hemoglobin 9.6 g/dL (13.5-17.5)
[2024-06-25 17:55] LABS: Mean Corpuscular Hemoglobin 24.3 pg (28.0-32.0); Mean Corpuscular Hgb Conc. 30.5 g/dL (32.0-36.0); Mean Corpuscular Volume 79.7 fL (80.0-100.0); Platelet Count (auto) 106 10^3/uL (140-450); Red Blood Cells 3.93 10^6/uL (4.5-5.90); Red Cell Distribution Width 24.7 % (11.8-14.3); White Blood Cell 10.2 10^3/uL (4.4-10.8)
[2024-06-25 17:56] LABS: INR 1.35 (0.9-1.15); Partial Thromboplastin Time 27.9 SEC (24.5-34.5)
[2024-06-25 17:59] LABS: Basophils % (manual) 0 (0.0-2.0); Blast Cells 0; Eosinophils % (manual) 0 (0-7); Metamyelocytes % 0; Myelocytes % 0; Promyelocytes % 0; Reactive Lymphocytes 0
[2024-06-25 18:00] VITALS: BP 105/70; PULSE 57; RESP 16; TEMP 98.3; O2SAT 96
[2024-06-25 18:01] LABS: Alanine Aminotransferase 25 U/L (7-40); Albumin 3.7 g/dL (3.2-4.8); Anion Gap 9 (5-15); Aspartate Aminotransferase 31 U/L (13-40); BUN/Creatinine Ratio 19.3 (10.0-20.0); Blood Urea Nitrogen 21 mg/dL (9-23); Calcium 9.5 mg/dL (8.7-10.4); Carbon Dioxide 24 mmol/L (20-31); Chloride 105 mmol/L (98-107); Glucose 76 mg/dL (74-106); Magnesium 1.9 mg/dL (1.6-2.6); Potassium 4.4 mmol/L (3.5-5.1); Sodium 138 mmol/L (136-145)
[2024-06-25 18:02] LABS: Total Protein 7.2 g/dL (5.7-8.2)
[2024-06-25 18:03] LABS: Alkaline Phosphatase 148 U/L (46-116); Bilirubin, Total 1.3 mg/dL (0.2-1.0)
[2024-06-25 18:22] LABS: Band Neutrophils % (manual) 2; Lymphocytes % (manual) 25 (10.0-50.0); Monocytes % (manual) 4 (0-12)
[2024-06-25 18:23] LABS: Anisocytosis Slight; Platelet Estimate Adequate
--- NOTE | 2024-06-26 06:25 | ECG ---
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
== END 2024-06-26 03:05 | disposition home or self-care (01) ==
LOC: ER 15:06
DX: I31.39 Other pericardial effusion (noninflammatory) (principal); I25.10 Atherosclerotic heart disease of native coronary artery without angina pectoris; I11.0 Hypertensive heart disease with heart failure; I50.9 Heart failure, unspecified; E11.9 Type 2 diabetes mellitus without complications; J44.9 Chronic obstructive pulmonary disease, unspecified; I48.91 Unspecified atrial fibrillation; G40.909 Epilepsy, unspecified, not intractable, without status epilepticus; Z79.01 Long term (current) use of anticoagulants; Z79.84 Long term (current) use of oral hypoglycemic drugs; Z86.73 Personal history of transient ischemic attack (TIA), and cerebral infarction without residual deficits; Z79.899 Other long term (current) drug therapy
CPT/HCPCS: 36415; 71046; 73080; 73130; 80053; 83735; 83880; 84443; 84484; 85007; 85027; 85379; 85610; 85730; 93005

== ENCOUNTER 2024-06-29 16:22 | Inpatient (IN) | payer MEDICAID ==
[~2024-06-29] VITALS: Ht 182.9 cm; Wt 105.6 kg
[2024-06-29] MEDS: DEXTROSE (50%) 50ML SYRG IV ONE ×2 (16:40→17:00)
[2024-06-29 16:57] LABS: Basophils # (auto) 0.1 10 ^3/uL (0-0.2); Eosinophils # (auto) 0 10 ^3/uL (0-0.8); Hematocrit 35.8 % (41.0-53.0); Monocytes # (auto) 0.7 10 ^3/uL (0-1.3); Monocytes % (auto) 6.4 % (0.0-12.0)
[2024-06-29 16:59] LABS: Basophils % (auto) 0.5 % (0.0-2.0); Hemoglobin 9.5 g/dL (13.5-17.5); Lymphocytes # (auto) 0.7 10 ^3/uL (0.4-5.4); Lymphocytes % (auto) 5.9 % (10.0-50.0); Mean Corpuscular Hemoglobin 24.4 pg (28.0-32.0); Mean Corpuscular Hgb Conc. 26.7 g/dL (32.0-36.0); Mean Corpuscular Volume 91.6 fL (80.0-100.0); Neutrophils # (auto) 9.9 10 ^3/uL (1.6-8.6); Neutrophils % (auto) 87.2 % (37.0-80.0); Nucleated Red Blood Cells % 0.2 %; Platelet Count (auto) 337 10^3/uL (140-450); Red Cell Distribution Width 26.4 % (11.8-14.3); White Blood Cell 11.3 10^3/uL (4.4-10.8)
--- NOTE | 2024-06-29 17:03 | DVH ---
CHEST RADIOGRAPH Indication: cp Technique: Single frontal view of the chest was obtained COMPARISON: XY CHEST PORTABLE on DOS: 06/16/24, XY CHEST PORTABLE on DOS: 05/17/24, XY CHEST PORTABLE on DOS: 05/16/24, XY CHEST XRAY 1 VIEW on DOS: 03/16/24, XY CHEST XRAY 1 VIEW on DOS: 03/15/24 FINDINGS: Lines and Tubes: None Lungs: Mild congestion Pleura: No effusion. No pneumothorax. Cardiomediastinal contours: Cardiomegaly Bones: Unremarkable IMPRESSION: Cardiomegaly and mild congestion
[2024-06-29 17:09] LABS: Chloride 99 mmol/L (98-107); Sodium 137 mmol/L (136-145)
[2024-06-29 17:10] LABS: Anion Gap 28.00001 (5-15); Calcium 9.9 mg/dL (8.7-10.4)
[2024-06-29 17:12] LABS: Potassium 5.2 mmol/L (3.5-5.1)
[2024-06-29 17:14] LABS: Carbon Dioxide < 10 mmol/L (20-31)
[2024-06-29 17:15] LABS: BUN/Creatinine Ratio 15.2 (10.0-20.0)
--- NOTE | 2024-06-29 17:24 | ED.PDOC ---
History of present illness HPI Comments 28y F who presents to the ED via EMS for chief complaint of hypoglycemia. Pt presents to the ED with blood sugar of 12 and pt is noted to be drowsy. EMS states they were called out originally due to chest pain and shortness of breath. Pt in the ED, otherwise drowsy but able to answer questions. Pt otherwise per prior notes been to [facility] for CHF exacerbation multiple times and is noted to be noncompliant with his medications. EMS gave pt glucagon prior to ED arrival. Chief Complaint: Hypoglycemia Time Seen by MD: 17:13 Primary Care Provider: unknown History of present illness: Cant Hooker Notes, Medications Allergies: Coded Allergies: Nitroglycerin (Verified Allergy, Unknown, 03/13/24) Home Meds Active Scripts Empagliflozin (Jardiance) 10 Mg Tab, 10 MG PO DAILY for 30 Days, #30 TAB 3 Refills Prov:SHADE ROWLEY DO 04/02/24 Carvedilol (COREG) 3.125 Mg Tab, 3.125 MG PO Q12HR for 30 Days, #60 TAB 4 Refills Prov:SHADE ROWLEY DO 04/02/24 Bumetanide (Bumetanide) 1 Mg Tab, 1 MG PO QAM for 30 Days, #30 TAB 1 Refill Prov:JASSON [employer] SERVICE MANAGER 03/16/24 Spironolactone (Aldactone) 25 Mg Tab, 12.5 MG PO DAILY for 30 Days, #15 TAB Prov:SHELBY [place]CA[place] RESIDENT 02/27/24 Reported Medications Valproic Acid (Valproic Acid) 250 Mg Cap, 250 MG PO, CAP 03/14/24 Levetiracetam (KEPPRA TABLET) 500 Mg Tb, 500 MG PO BID, TAB 03/14/24 Pantoprazole Sodium (PANTOPRAZOLE SODIUM) 40 Mg Inj, 40 MG IV DAILY, INJ 03/03/24 Dapagliflozin Propanediol (Farxiga) 10 Mg Tab, 10 MG PO DAILY, TAB 03/03/24 Quetiapine Fumerate (QUETIAPINE FUMARATE) 100 Mg Tab, 1 TAB PO DAILY 01/25/24 Levetiracetam (Levetiracetam) 500 Mg Tab, 1 TAB PO BID 01/25/24 Lisinopril (Lisinopril) 2.5 Mg Tab, 1 TAB PO DAILY 01/25/24 Apixaban Base (ELIQUIS) 5 Mg Tab, 1 TAB PO BID 01/25/24 Atorvastatin Calcium (ATORVASTATIN CALCIUM) 40 Mg Tab, 1 TAB PO DAILY 01/25/24 Information Source: Patient, Emergency Med Personnel Mode of Arrival: EMS Past Medical History PAST MEDICAL HISTORY: AFIB, CHF, CKF, COPD, CVA, HTN, NV, Seizures Surgical History: PTCA Family History Family History: Reviewed,noncontributory to illness, Unknown Social History Smoker: Non-Smoker Alcohol: Denies ETOH Use Drugs: Denies Drug Use Lives In: Home Constitutional: reports: malaise, weakness; denies: chills, diaphoresis, fatigue, fever, sweats, others EENTM: denies: blurred vision, double vision, ear bleeding, ear discharge, ear drainage, ear pain, ear ringing, eye pain, eye redness, hearing loss, mouth pain, mouth swelling, nasal discharge, nose bleeding, nose congestion, nose pain, photophobia, tearing, throat pain, throat swelling, voice changes, others Respiratory: denies: cough, hemoptysis, orthopnea, SOB at rest, shortness of breath, SOB with excertion, stridor, wheezing, others Cardiovascular: denies: chest pain, dizzy spells, diaphoresis, Dyspnea on exertion, edema, irregular heart beat, left arm pain, lightheadedness, palpitat ions, PND, syncope, others Gastrointestinal: denies: abdomen distended, abdominal pain, blood streaked bow els, constipated, diarrhea, dysphagia, difficulty swallowing, hematemesis, melena, nausea, poor appetite, poor fluid intake, rectal bleeding, rectal pain, vomiting, others Genitourinary: denies: burning, dysuria, flank pain, frequency, hematuria, incontinence, penile discharge, penile sore, pain, testicle pain, testicle swelling, urgency, others Neurological: denies: dizziness, fainting, headache, left sided numbness, left sided weakness, numbness, paresthesia, pre-existing deficit, right sided numbness, right sided weakness, seizure, speech problems, tingling, tremors, weakness, others Musculoskeletal: denies: back pain, gout, joint pain, joint swelling, muscle pain, muscle stiffness, neck pain, others Integumetry: denies: bruises, change in color, change in hair/nails, dryness, laceration, lesions, lumps, rash, wounds, others Allergic/Immunocompromised: denies: Difficulty Healing, Frequent Infections, Hives, Itching, others Hematologic/Lymphatic: denies: anemia, blood clots, easy bleeding, easy bruising, swollen glands, others Endocrine: denies: excessive hunger, excessive sweating, excessive thirst, excessive urination, flushing, intolerance to cold, intolerance to heat, unexplained weight gain, unexplained weight loss, others Psychiatric: denies: anxiety, bipolar disorder, depression, hopeless, panic disorder, schizophrenia, sleepless, suicidal, others All Other Systems: Reviewed and Negative Physical Exam General Appearance: No Apparent Distress, Normal HEENT: Normal ENT Inspection, Pharynx Normal, TMs Normal Neck: Full Range of Motion, Non-Tender, Normal, Normal Inspection Respiratory: Chest Non-Tender, Lungs Clear, No Accessory Muscle Use, No Respiratory Distress, Normal Breath Sounds Cardiovascular: No Edema, No JVD, No Murmur, No Gallop, Normal Peripheral Pulses, Regular Rate/Rhythm Breast Exam: Deferred Gastrointestinal: No Organomegaly, Non Tender, No Pulsatile Mass, Normal Bowel Sounds, Soft Genitalia: Deferred Pelvic: Deferred Rectal: Deferred Extremities: Other (L arm edema, bilateral pedal edema) Musculoskeletal : Apperance: Normal Neurologic: Alert, mathematical technician II-XII nml as Tested, No Motor Deficits, Normal Affect, Normal Mood, No Sensory Deficits Cerebellar Function: Normal Reflexes: Normal Skin: Dry, Normal Color, Warm Lymphatic: No Adenopathy Was a procedure done? Was a procedure done?: No Differential Diagnosis (DM) Differential Diagnosis: Dehydration, Diabetic Coma, DKA, Electrolyte Abnormality, Encephalopathy, Hyperglycemia, Hyperosmolar State, Hypoglycemia, Pancreatitis, Pyelonephritis, UTI X-Ray, Labs, Meds, VS Vital Signs Date Time Temp Pulse Resp B/P (MAP) Pulse Ox O2 Delivery O2 Flow Rate FiO2 06/29/24 17:53 85 26 100 Nasal Cannula* 3 32 06/29/24 17:53 85 26 127/88 (101) 100 06/29/24 16:44 96.9 98 22 121/78 (92) 99 06/29/24 16:32 100 Lab Test 06/29/24 17:39 06/29/24 17:36 06/29/24 16:40 Range/Units POC Glucose 112 H 70-106 mg/dl Blood Gas Specimen Type Arterial Blood Gas Sample Site Right radial Blood Gas Patient Temperature 37.0 Arterial Blood Date Drawn [id number] Arterial Blood pH 7.074 *L 7.350-7.450 Arterial Blood Partial Pressure CO2 < 12.6 *L 35.0-48.0 mmHg Arterial Blood Partial Pressure O2 141.0 H 83.0-108.0 mmHg Arterial Blood Oxygen Saturation 97.5 94.0-98.0 % Arterial Blood Oxyhemoglobin 95.9 94.0-98.0 % Arterial Blood Carboxyhemoglobin 1.0 0.5-1.5 % Arterial Blood Methemoglobin 0.6 0.0-1.5 % Clement Test Modified Blood Gas Total Hemoglobin 10.90 L 13.5-17.5 g/dL Blood Gas Liter Flow 3.00 Blood Gas Modality Nasal cannula FiO2 % 32.0 Blood Gas Critical Value Read Back Yes Blood Gas Notified Whom nikolay May md Blood Gas Notified Time [id number] Blood Gas Notified By tommy Weaver rrt White Blood Count 11.3 H 4.4-10.8 10^3/uL Red Blood Count 3.90 L 4.5-5.90 10^6/uL Hemoglobin 9.5 L 13.5-17.5 g/dL Hematocrit 35.8 #L 41.0-53.0 % Mean Corpuscular Volume 91.6 # 80.0-100.0 fL Mean Corpuscular Hemoglobin 24.4 L 28.0-32.0 pg Mean Corpuscular Hemoglobin Concent 26.7 L 32.0-36.0 g/dL Red Cell Distribution Width 26.4 H 11.8-14.3 % Platelet Count 337 # 140-450 10^3/uL Mean Platelet Volume 8.2 6.9-10.8 fL Neutrophils (%) (Auto) 87.2 H 37.0-80.0 % Lymphocytes (%) (Auto) 5.9 L 10.0-50.0 % Monocytes (%) (Auto) 6.4 0.0-12.0 % Eosinophils (%) (Auto) 0.0 0.0-7.0 % Basophils (%) (Auto) 0.5 0.0-2.0 % Neutrophils # (Auto) 9.9 H 1.6-8.6 10 ^3/uL Lymphocytes # (Auto) 0.7 0.4-5.4 10 ^3/uL Monocytes # (Auto) 0.7 0-1.3 10 ^3/uL Eosinophils # (Auto) 0 0-0.8 10 ^3/uL Basophils # (Auto) 0.1 0-0.2 10 ^3/uL Nucleated Red Blood Cells 0.2 % Platelet Estimate Adequate Hypochromasia (manual) Slight Anisocytosis (manual) Moderate Sodium Level 137 136-145 mmol/L Potassium Level 5.2 H 3.5-5.1 mmol/L Chloride Level 99 98-107 mmol/L Carbon Dioxide Level < 10 #*L 20-31 mmol/L Anion Gap 28.65679 H 5-15 Blood Urea Nitrogen 37 H 9-23 mg/dL Creatinine 2.44 H 0.700-1.30 mg/dL Glomerular Filtration Rate Calc 36 >90 mL/min BUN/Creatinine Ratio 15.2 10.0-20.0 Serum Glucose 228 #H 74-106 mg/dL Calcium Level 9.9 8.7-10.4 mg/dL Troponin I High Sensitivity 38 </=54 ng/L B-Type Natriuretic Peptide 3782.94 0-100 pg/mL Current Medications Medications (Trade) Dose Ordered Sig/Mickey Route Start Time Stop Time Status Last Admin Dextrose 50 ml ONCE ONCE IV 06/29/24 17:00 06/29/24 17:01 DC 06/29/24 16:40 Sodium Bicarbonate 50 ml ONCE ONCE IV 06/29/24 17:30 06/29/24 17:31 DC 06/29/24 18:01 [place] [id number] Ph: [phone] DIAGNOSTIC IMAGING Diagnostic Imaging Report : [id number] Signed PATIENT: GENET ALVAREZ ACCT: [id number] UNIT: [id number] : 1995 LOC: ER ROOM / BED: / AGE / SEX: 28 / M ADM STATUS: REG ER SERVICE [id number] ORDERING PHYSICIAN: JULIAN MAY MD PROCEDURE(s): CXRP - CHEST PORTABLE REASON: cp ORDER NUMBER(s): [id number], ACCESSION NUMBER(s): [id number] CHEST RADIOGRAPH Indication: cp Technique: Single frontal view of the chest was obtained COMPARISON: XY CHEST PORTABLE on DOS: 06/16/24, XY CHEST PORTABLE on DOS: 05/17/24, XY CHEST PORTABLE on DOS: 05/16/24, XY CHEST XRAY 1 VIEW on DOS: 03/16/24, XY CHEST XRAY 1 VIEW on DOS: 03/15/24 FINDINGS: Lines and Tubes: None Lungs: Mild congestion Pleura: No effusion. No pneumothorax. Cardiomediastinal contours: Cardiomegaly Bones: Unremarkable IMPRESSION: Cardiomegaly and mild congestion ATED BY: JB KIM MD DICTATED DATE/TIME: 06/29/241658 SIGNED BY: JB KIM MD SIGNED DATE/TIME: 06/29/241658 CC: [place] [id number] Ph: [phone] DIAGNOSTIC IMAGING Diagnostic Imaging Report : [id number] Signed PATIENT: GENET ALVAREZ JRACCT: [id number] UNIT: [id number] : 1995 LOC: ER ROOM / BED: / AGE / SEX: 28 / M ADM STATUS: REG ER SERVICE 24 ORDERING PHYSICIAN: JULIAN MAY MD PROCEDURE(s): LUDVT - LT Upper DVT REASON: left arm swelling ORDER NUMBER(s): [id number], ACCESSION NUMBER(s): [id number] Procedure: US LT Upper DVT Study Date and Requested Time: 06/29/2024 05:01 PM History: left arm swelling Comparison: US LT UPPER DVT on DOS: 06/16/24 Technique: Multiple high resolution grayscale images with and without compression obtained of the left upper extremity veins, including the internal jugular, subclavian, axillary, brachial, radial, and ulnar veins. Augmentation performed as indicated. Color and spectral doppler flow images obtained as indicated. Findings: The left internal jugular vein is not visualized due to PICC in place. Otherwise, No visible intraluminal venous thrombus no evidence of incompressibility or abnormal color or spectral Doppler flow visualized in the left upper extremity veins including the subclavian, axillary, brachial, radial, and ulnar veins. The left basilic vein is not visualized due to edema. The left cephalic vein is visualized and patent. Impression: The left internal jugular vein is not visualized due to PICC in place. Otherwise, no sonographic evidence of left upper extremity deep venous thrombosis. The left basilic vein is not visualized due to edema. ATED BY: SKYLAR MURRAY DO DICTATED DATE/TIME: 06/29/241733 SIGNED BY: SKYLAR MURRAY DO SIGNED DATE/TIME: 06/29/241733 CC: Time of 1ST Reevaluation: 17:45 Reevaluation 1ST: Unchanged Time of 2ND Reevaluation: 18:58 Reevaluation 2ND: Unchanged Patient Education/Counseling: Diagnosis, Treatment, Prognosis, Need For Follow Up Family Education/Counseling: No Family Present Additional Information pet was seen here a few days ago with normal renal function/ chart review shows he has been admitted almost monthly, other than in apr for chf. i see no history of DM, but EMS report that the mother told them pt has DM. he is showing signs of DKA, although the initial accucheck by EMT was low. it is unclear if this is erroneous, but he has new onset renal failure, an AG, metabolic acidosis, hyperglycemia. due to the history of chf, ivf must be given judiciously. he is clinically dry, but cxr still shows chf. he will be started on bicarb drip insulin, calcium, and i will consult nephrology and have pt admitted. he is still alert and oriented and informs me that he does not see a scada engineer, so i will consult Dr Landeros's grp Departure 1 Departure Time of Disposition: 18:45 Impression: Primary Impression: DKA (diabetic ketoacidosis) Qualified Codes: E13.10 - Other specified diabetes mellitus with ketoacidosis without coma Additional Impressions: Metabolic acidosis High anion gap metabolic acidosis Renal failure Qualified Codes: N19 - Unspecified kidney failure Altered behavior Disposition: ADMITTED INPATIENT Admit to: ICU Condition: Critical Critical Care Note Critical Care Time?: Yes (55 min-critical care time only) Critical care comment: due to concerns for patient's condition deteriorating, the care required my highest attention and readiness to intervene. i reviewed the medical records, communicated with EMS, consultants, medical personnel, ordered the proper tests, treatments, reviewed the results and for patient's response, and formulated a plan of care. total critical care time does not include any procedures Stability Stability form required: No Heart Score Heart Score: Heart Score Response (Comments) Value History N/A 0 EKG N/A 0 Age N/A 0 Risk Factors N/A 0 Troponin N/A 0 Total 0 I personally scribed for JULIAN MAY MD ([facility]) on 06/29/24 at 17:24. Electronically submitted by Madison Trejo ([employer]). I personally scribed for [facility]ULIAN MAY MD ([facility] on 06/29/24 at 18:14. Electronically submitted by Madison Trejo ([employer]). JULIAN MAY MD Jun 29, 2024 17:24
--- NOTE | 2024-06-29 17:36 | DVH ---
Procedure: US LT Upper DVT Study Date and Requested Time: 06/29/2024 05:01 PM History: left arm swelling Comparison: US LT UPPER DVT on DOS: 06/16/24 Technique: Multiple high resolution grayscale images with and without compression obtained of the lef t upper extremity veins, including the internal jugular, subclavian, axillary, brachial, radial, and ulnar veins. Augmentation performed as indicated. Color and spectral doppler flow images obtained as indicated. Findings: The left internal jugular vein is not visualized due to PICC in place. Otherwise, No visible intralu denisa venous thrombus no evidence of incompressibility or abnormal color or spectral Doppler flow vis ualized in the left upper extremity veins including the subclavian, axillary, brachial, radial, and ulnar veins. The left basilic vein is not visualized due to edema. The left cephalic vein is visualized and patent . Impression: The left internal jugular vein is not visualized due to PICC in place. Otherwise, no sonographic verito dence of left upper extremity deep venous thrombosis. The left basilic vein is not visualized due to edema.
[2024-06-29 17:53] VITALS: PULSE 85; RESP 26; O2SAT 100
[2024-06-29] MEDS: SODIUM BICARB 8.4% 50Meq/50ml SYR Vial IV ONE ×2 (18:01→18:57)
[2024-06-29 18:09] LABS: Blood Urea Nitrogen 37 mg/dL (9-23); Glucose 228 mg/dL (74-106)
[2024-06-29 18:13] LABS: Anisocytosis Moderate; Hypochromia Slight; Platelet Estimate Adequate
[2024-06-29] MEDS: INSULIN DRIP 100 UNIT/100ML 100 ML IV SCH (18:45)
[2024-06-29] MEDS ORDERED: DEXTROSE (50%) 50ML SYRG IV PRN (18:45)
[2024-06-29] MEDS: INSULIN LANTUS (GLARGINE) 1 /0.01ml (100units/ml) SC ONE (18:45)
[2024-06-29] MEDS: ONDANSETRON HCL 4 MG/2 ML VIAL IV ONE (18:56)
[2024-06-29 19:46] LABS: Magnesium 2.5 mg/dL (1.6-2.6)
[2024-06-29 19:50] LABS: Phosphorus 9.8 mg/dL (2.4-5.1)
[2024-06-29] MEDS: ACCU-CHEK COMFORT CURVE STRIP VI SCH (19:59)
[2024-06-29 20:00] VITALS: O2SAT 98
[2024-06-29 20:42] LABS: Base Excess -18.8 mmol/L (-2.0-3.0)
[2024-06-29] MEDS: SOD CHL 0.45% 1,000 ML IV ONE (20:49)
[2024-06-29 20:54] LABS: Urine Bacteria None Seen /hpf (None Seen)
[2024-06-29] MEDS: CALCIUM GLUC 1,000mg/50ml-NS 50 ML IV ONE (20:58)
[2024-06-29 21:15] LABS: Urine Blood 1+ /uL (Negative); Urine Clarity Turbid (Clear); Urine Color Yellow (Yellow); Urine Protein, UAD 2+ (Negative); Urine Specific Gravity 1.012 (1.001-1.035); Urine Squamous Epithelial Cell FEW /hpf (<5); Urine Urobilinogen Normal (Negative); Urine WBC 6 /hpf (0 - 3); Urine pH 5.5 (5.0-9.0)
[2024-06-29 21:26] LABS: Cannabinoid Screen, Urine Pos (NEGATIVE); Opiate Scree,Urine Pos (NEGATIVE); Phencyclidine Screen, Urine Neg (NEGATIVE)
[2024-06-29 21:28] LABS: Amphetamine Screen, Urine Neg (NEGATIVE); Barbiturate Scree,Urine Neg (NEGATIVE); Benzodiazephine Screen, Urine Neg (NEGATIVE); Cocaine Screen, Urine Neg (NEGATIVE)
[2024-06-29 21:30] LABS: Alanine Aminotransferase 32 U/L (7-40); Albumin 4.3 g/dL (3.2-4.8); Anion Gap 29.00001 (5-15); BUN/Creatinine Ratio 14.9 (10.0-20.0); Chloride 100 mmol/L (98-107); Glucose 99 mg/dL (74-106); Potassium 4.7 mmol/L (3.5-5.1); Sodium 139 mmol/L (136-145)
[2024-06-29] MEDS ORDERED: hydrALAZINE HCL 20 MG/ML VL IV PRN (21:30)
[2024-06-29] MEDS ORDERED: DOCUSATE SOD 100 MG CAP PO PRN (21:30)
[2024-06-29 21:33] LABS: Alkaline Phosphatase 164 U/L (46-116); Aspartate Aminotransferase 73 U/L (13-40); Blood Alcohol < 3.0 mg/dL (<10); Blood Urea Nitrogen 35 mg/dL (9-23); Calcium 10.5 mg/dL (8.7-10.4); Total Protein 8.7 g/dL (5.7-8.2)
[2024-06-29 21:34] LABS: Carbon Dioxide < 10 mmol/L (20-31)
[2024-06-29] MEDS: SODIUM BICARB 50mEq/50ml Vial 50 ML in SOD CHL 0.45% 1,000 ML IV ONE (21:40)
--- NOTE | 2024-06-29 22:24 | DVHHP2 ---
History of Present Illness Reason for Visit: DKA (diabetic ketoacidosis) History of Present Illness The patient is a 28-year-old female with multiple past medical history including CHF, AFib, COPD, CVA, and seizures presented to [facility] ED for evaluation of hyperglycemia. Patient reports symptoms progressively get worse with shortness of breath, drowsy, chest pain, getting worse that prompted this visit. Patient was seen evaluated in the ED, laboratory data shows WBC 11.3, hemoglobin 9.5, hematocrit 35.8, platelets 337, sodium 139, potassium 4.7, BUN 25, creatinine 2.35, GFR 35, glucose of 12 trending up to 133, anion gap 29.00, BNP 3165.08, protein 8.7, troponin 48, AST 73, ALT 32, total bilirubin 3.0, blood pressure 116/76, heart rate 106, temperature 96.9 F, O2 saturation 99% on oxygen. Chest x-ray revealing cardiomegaly and mild congestion; extremity venous study showed no evidence of left upper extremity deep venous thrombosis. Patient was started on insulin drip, please see medication orders section in the computer. On my assessment, patient denied chest pain, no headache, no dizziness, no diaphoresis, no diarrhea no nausea, no vomiting, no fever, no chills. Patient was admitted for further evaluation and medical management. Past Medical History AFIB, CHF, CKF, COPD, CVA, HTN, CT, Seizures Past Surgical History PTCA Family History Reviewed, noncontributory to the management of this case. Past Social History The patient lives at home, denies smoking, alcohol or illicit drugs abuse. Review of Systems Constitutional: Yes: Weakness, Other (Drowsy); No: Fever, Chills, Sweats, Malaise Eyes: No: Pain, Vision change, Conjunctivae inflammation, Eyelid inflammation, Other, Redness ENT: No: Ear pain, Ear discharge, Nose pain, Nose discharge, Nose congestion, Mouth pain, Mouth swelling, Throat pain, Throat swelling, Other Respiratory: Shortness of breath; No: Cough, Dry, SOB with excertion, Wheezing, Hemoptysis, Pleuritic Pain, Sputum, Wheezing, Other Cardiovascular: Chest Pain; No: Palpitations, Orthopnea, Paroxysmal Noc. Dyspnea, Edema, Lt Headedness, Other Gastrointestinal: No: Nausea, Vomiting, Abdominal Pain, Diarrhea, Constipation, Melena, Hematochezia, Other Genitourinary: No Dysuria, No Frequency, No Incontinence, No Hematuria, No Retention, No Other Musculoskeletal: No: other, neck pain, shoulder pain, arm pain, back pain, hand pain, leg pain, foot pain Skin: No: Rash, Lesions, Jaundice, Bruising, Other Neurological: Other (Altered behavior); No: Weakness, Numbness, Incoordination, Change in speech, Confusion, Seizures Allergies: Coded Allergies: Nitroglycerin (Verified Allergy, Unknown, 03/13/24) Medications Current Medications Medications Dose Ordered Sig/Mickey Route Start Time Stop Time Status Last Admin Dose Admin Insulin Human (Reg)/Sodium Chloride 100 ml @ 0.5 mls/hr Q24H IV 06/29/24 18:45 Dextrose 50 ml UD PRN IV 06/29/24 18:45 Diagnostic Test (Pha) 1 strip Q90MIN 06/29/24 19:30 06/29/24 21:39 1 STRIP Insulin Glargine 15 units DAILY SC 06/30/24 10:00 Levetiracetam 100 ml @ 400 mls/hr BID IV 06/29/24 22:00 Atorvastatin Calcium 20 mg HS PO 06/29/24 22:00 Hydralazine HCl 10 mg Q6HP PRN IV 06/29/24 21:30 Famotidine 20 mg DAILY IV 06/30/24 10:00 Apixaban 5 mg BID PO 06/29/24 22:00 Sodium Chloride 10 ml Q8HR IV 06/29/24 22:00 Acetaminophen/ Hydrocodone Bitart 1 tab Q4HP PRN PO 06/29/24 21:30 Ondansetron HCl 4 mg Q4HP PRN IV 06/29/24 21:30 Docusate Sodium 100 mg BIDPRN PRN PO 06/29/24 21:30 Acetaminophen 650 mg Q6HP PRN PO 06/29/24 21:30 Exam Vital Signs Vital Signs Date Time Temp Pulse Resp B/P (MAP) Pulse Ox O2 Delivery O2 Flow Rate FiO2 06/29/24 19:43 96.1 107 28 116/76 (89) 96.1 06/29/24 17:53 100 Nasal Cannula* 3 32 General Appearance: Alert, Oriented X3, Cooperative, No acute distress HEENT: Atraumatic, PERRLA, EOMI, Mucous membr. moist/pink Respiratory: Clear to auscultation, Normal air movement Cardiovascular: Regular rate, Normal S1, Normal S2, No murmurs Abdominal: Normal bowel sounds, Soft, No tenderness, No hepatospenomegaly, No masses Extremities: No clubbing, No cyanosis, No edema, Normal pulses, No tenderness/swelling Skin: No rashes, No breakdown, No significant lesion Neuro: Normal speech, Normal tone, Sensation intact, Cranial nerves 3-12 NL, Reflexes 2+, Other (Generalized weakness) Psych/Mental Status: Mood NL, Other (Altered behavior) Labs/Xrays Labs Test 06/29/24 21:55 06/29/24 21:38 06/29/24 20:52 06/29/24 20:37 Range/Units POC Glucose 133 H 70-106 mg/dl Serum Osmolality 321 H 278-298 mOsm/kg Salicylates Level < 3.0 -30 mg/dL Blood Gas Specimen Type Arterial Blood Gas Sample Site Right radial Blood Gas Patient Temperature 37.0 Arterial Blood Date Drawn [id number] Arterial Blood pH 7.215 *L 7.350-7.450 Arterial Blood Partial Pressure CO2 17.5 *L 35.0-48.0 mmHg Arterial Blood Partial Pressure O2 132.0 H 83.0-108.0 mmHg Arterial Blood HCO3 6.9 L 21.0-28.0 mmol/L Arterial Blood Oxygen Saturation 98.2 H 94.0-98.0 % Arterial Blood Base Excess -18.8 L -2.0-3.0 mmol/L Arterial Blood Oxyhemoglobin 96.9 94.0-98.0 % Arterial Blood Carboxyhemoglobin 0.6 0.5-1.5 % Arterial Blood Methemoglobin 0.7 0.0-1.5 % Clement Test Yes Blood Gas Total Hemoglobin 10.90 L 13.5-17.5 g/dL Blood Gas Liter Flow 3.00 Blood Gas Modality Nasal cannula FiO2 % 32.0 Blood Gas Critical Value Read Back Yes Blood Gas Notified Whom Dr. joseph Blood Gas Notified Time [id number] Blood Gas Notified By Technical Analyst ruben pereiragg Test 06/29/24 20:34 06/29/24 20:30 06/29/24 18:44 06/29/24 16:40 Range/Units Sodium Level 139 136-145 mmol/L Potassium Level 4.7 3.5-5.1 mmol/L Chloride Level 100 98-107 mmol/L Carbon Dioxide Level < 10 *L 20-31 mmol/L Anion Gap 29.21313 H 5-15 Blood Urea Nitrogen 35 H 9-23 mg/dL Creatinine 2.35 H 0.700-1.30 mg/dL Glomerular Filtration Rate Calc 37 >90 mL/min BUN/Creatinine Ratio 14.9 10.0-20.0 Serum Glucose 99 # 74-106 mg/dL Calcium Level 10.5 H 8.7-10.4 mg/dL Total Bilirubin 3.0 H 0.2-1.0 mg/dL Aspartate Amino Transferase (AST) 73 H 13-40 U/L Alanine Aminotransferase (ALT) 32 7-40 U/L Alkaline Phosphatase 164 H 46-116 U/L Troponin I High Sensitivity 48 </=54 ng/L Total Protein 8.7 H 5.7-8.2 g/dL Albumin 4.3 3.2-4.8 g/dL Plasma/Serum Blood Alcohol < 3.0 <10 mg/dL Urine Color Yellow Yellow Urine Clarity Turbid H Clear Urine pH 5.5 5.0-9.0 Urine Specific [place] 1.012 1.001-1.035 Urine Protein 2+ H Negative Urine Ketones Trace Negative Urine Blood 1+ H Negative /uL Urine Nitrite Negative Negative Urine Bilirubin Negative Negative Urine Urobilinogen Normal Negative mg/dL Urine Leukocyte Esterase Negative Negative /uL Urine RBC 10 0 - 3 /hpf Urine WBC 6 0 - 3 /hpf Urine Squamous Epithelial Cells Few <5 /hpf Urine Bacteria None seen None Seen /hpf Urine Glucose Normal Normal mg/dL Urine Opiates Screen Pos NEGATIVE Urine Fentanyl Screen Neg NEGATIVE Urine Barbiturates Screen Neg NEGATIVE Urine Phencyclidine Screen Neg NEGATIVE Urine Amphetamines Screen Neg NEGATIVE Urine Benzodiazepines Screen Neg NEGATIVE Urine Cocaine Screen Neg NEGATIVE Urine Cannabinoids Screen Pos NEGATIVE Phosphorus Level 9.8 H 2.4-5.1 mg/dL Magnesium Level 2.5 1.6-2.6 mg/dL Beta-Hydroxybutyric Acid 0.328 < 0.4 mmol/L White Blood Count 11.3 H 4.4-10.8 10^3/uL Red Blood Count 3.90 L 4.5-5.90 10^6/uL Hemoglobin 9.5 L 13.5-17.5 g/dL Hematocrit 35.8 #L 41.0-53.0 % Mean Corpuscular Volume 91.6 # 80.0-100.0 fL Mean Corpuscular Hemoglobin 24.4 L 28.0-32.0 pg Mean Corpuscular Hemoglobin Concent 26.7 L 32.0-36.0 g/dL Red Cell Distribution Width 26.4 H 11.8-14.3 % Platelet Count 337 # 140-450 10^3/uL Mean Platelet Volume 8.2 6.9-10.8 fL Neutrophils (%) (Auto) 87.2 H 37.0-80.0 % Lymphocytes (%) (Auto) 5.9 L 10.0-50.0 % Monocytes (%) (Auto) 6.4 0.0-12.0 % Eosinophils (%) (Auto) 0.0 0.0-7.0 % Basophils (%) (Auto) 0.5 0.0-2.0 % Neutrophils # (Auto) 9.9 H 1.6-8.6 10 ^3/uL Lymphocytes # (Auto) 0.7 0.4-5.4 10 ^3/uL Monocytes # (Auto) 0.7 0-1.3 10 ^3/uL Eosinophils # (Auto) 0 0-0.8 10 ^3/uL Basophils # (Auto) 0.1 0-0.2 10 ^3/uL Nucleated Red Blood Cells 0.2 % Platelet Estimate Adequate Hypochromasia (manual) Slight Anisocytosis (manual) Moderate PATIENT: GENET ALVAREZ JRACCT: [id number] UNIT: [id number] : 1995 LOC: ER ROOM / BED: / AGE / SEX: 28 / M ADM STATUS: REG ER SERVICE 1625 ORDERING PHYSICIAN: JULIAN JOSEPH MD PROCEDURE(s): LUDVT - LT Upper DVT REASON: left arm swelling ORDER NUMBER(s): [id number], ACCESSION NUMBER(s): [id number] Procedure: US LT Upper DVT Study Date and Requested Time: 06/29/2024 05:01 PM History: left arm swelling Comparison: US LT UPPER DVT on DOS: 06/16/24 Technique: Multiple high resolution grayscale images with and without comp ression obtained of the left upper extremity veins, including the internal jugular, subclavian, axillary, brachial, radial, and ulnar veins. Augmentation performed as indicated. Color and spectral doppler flow images obtained as indicated. Findings: The left internal jugular vein is not visualized due to PICC in place. Otherwise, No visible intraluminal venous thrombus no evidence of incompressibility or abnormal color or spectral Doppler flow visualized in the left upper extremity veins including the subclavian, axillary, brachial, radial, and ulnar veins. The left basilic vein is not visualized due to edema. The left cephalic vein is visualized and patent. Impression: The left internal jugular vein is not visualized due to PICC in place. Otherwise, no sonographic evidence of left upper extremity deep venous thrombosis. The left basilic vein is not visualized due to edema. ORDERING PHYSICIAN: JULIAN JOSEPH MD PROCEDURE(s): CXRP - CHEST PORTABLE REASON: cp ORDER NUMBER(s): [id number], ACCESSION NUMBER(s): [id number] CHEST RADIOGRAPH Indication: cp Technique: Single frontal view of the chest was obtained COMPARISON: XY CHEST PORTABLE on DOS: 06/16/24, XY CHEST PORTABLE on DOS: 05/17/24, XY CHEST PORTABLE on DOS: 05/16/24, XY CHEST XRAY 1 VIEW on DOS: 03/16/24, XY CHEST XRAY 1 VIEW on DOS: 03/15/24 FINDINGS: Lines and Tubes: None Lungs: Mild congestion Pleura: No effusion. No pneumothorax. Cardiomediastinal contours: Cardiomegaly Bones: Unremarkable IMPRESSION: Cardiomegaly and mild congestion Assessment/Plan Assessment/Plan DKA (diabetic ketoacidosis) Altered behavior Anemia, unspecified Metabolic acidosis High anion gap metabolic acidosis Acute renal failure Unspecified kidney failure Acute exacerbation of congestive heart failure Other specified diabetes mellitus with ketoacidosis without coma Plan 1. Admit to intensive care unit 2. Breathing treatment 3. Pain control management 4. Management of fluids and electrolytes 5. Consultation for hospitalist/nephrology 6. Diagnostic tests chest x-ray 7. DVT prophylaxis-on SCDs 8. Repeat labs CBC, CMP in a.m. 9. Continue with current medical management 10. Treatment plan discussed with patient and RN. Patient verbalized under standing. Plan discussed with: Patient, Other (RN/mother) My Orders Orders - TALON GOFF DNP Procedure Category Date Status Time Consistent DIET 06/30/24 Transmitted Carb(Ccho)Diabetes Breakfast Levetiracetam 500 PHA 06/29/24 In Process Mg/100ml (Levetiraceta 22:00 Atorvastatin (Lipitor) PHA 06/29/24 In Process 22:00 Hydralazine Injection PHA 06/29/24 In Process (Apresoline Inject 21:30 Famotidine Injection PHA 06/30/24 In Process (Pepcid Injection) 10:00 Apixaban (Eliquis) PHA 06/29/24 In Process 22:00 Allergies ERLIN 06/29/24 In Process 21:19 Code Status CODE 06/29/24 Transmitted 21:19 Sodium Chloride Lock PHA 06/29/24 In Process (Saline Lock Ns) 22:00 Oxygen Per Hour RT 06/29/24 Transmitted 21:19 Hydrocodone-Acet PHA 06/29/24 In Process 5/325mg Tab ([place] 21:30 Ondansetron Hcl PHA 06/29/24 In Process (Zofran) 21:30 Docusate Sodium PHA 06/29/24 In Process Capsule (Colace 21:30 Fall Risk Precautions ERLIN 06/29/[address] 21:19 Complete Blood Count LAB 06/30/24 Verified 04:00 Comprehensive LAB 06/30/24 Verified Metabolic Panel 04:00 Echo 2d Mode Cardiac US 06/29/24 Logged DOP 21:19 Condition: Serious ERLIN 06/29/24 In Process 21:19 Acetaminophen Tablet PHA 06/29/24 In Process (Tylenol Tablet) 21:30 Sequential ERLIN 06/29/24 In Process Compression Device B-Type Natriuretic LAB 06/29/24 In Process Peptide 21:19 Problem List: (1) DKA (diabetic ketoacidosis) (2) High anion gap metabolic acidosis (3) Altered behavior (4) Metabolic acidosis (5) Anemia, unspecified (6) Unspecified kidney failure (7) Acute renal failure (8) Other specified diabetes mellitus with ketoacidosis without coma (9) Acute exacerbation of congestive heart failure Date of Service: Jun 29, 2024 Billing Provider: TALON GOFF DNP Common Visit Codes: [id number] INP/OBS CARE (HIGH) TALON GOFF DNP Jun 29, 2024 22:24
[2024-06-29] MEDS: SODIUM CHLOR 0.9% PF (SALINE LOCK) 10ML VIAL/SYR IV SCH (22:45)
[2024-06-29] MEDS: APIXABAN 5 MG TAB PO SCH (22:46)
[2024-06-29] MEDS: ATORVASTATIN 20 MG TAB PO SCH (22:46)
[2024-06-29] MEDS: levETIRAcetam 500 mg/100ml 100 ML IV SCH (23:17)
[2024-06-30] MEDS: D5W/SOD CHLO 0.9% 1,000 ML IV SCH (03:57)
[2024-06-30] MEDS: FUROSEMIDE 40 MG/4 ML VIAL IV ONE (04:49)
[2024-06-30] MEDS: ACCU-CHEK COMFORT CURVE STRIP VI SCH ×2 (04:49→16:59)
[2024-06-30] MEDS: InsuLIN REG 1unit/0.01ml Soln (100units/ml) SC SCH ×2 (04:49→16:59)
[2024-06-30] MEDS: HYDROcodone-ACET 5/325MG TAB PO PRN (04:52)
[2024-06-30 05:08] LABS: Basophils # (auto) 0 10 ^3/uL (0-0.2); Basophils % (auto) 0.3 % (0.0-2.0); Eosinophils # (auto) 0 10 ^3/uL (0-0.8); Hemoglobin 8.7 g/dL (13.5-17.5); Red Blood Cells 3.54 10^6/uL (4.5-5.90)
[2024-06-30 05:10] LABS: Hematocrit 28.4 % (41.0-53.0); Lymphocytes # (auto) 0.8 10 ^3/uL (0.4-5.4); Lymphocytes % (auto) 6.7 % (10.0-50.0); Mean Corpuscular Hemoglobin 24.6 pg (28.0-32.0); Mean Corpuscular Hgb Conc. 30.6 g/dL (32.0-36.0); Mean Corpuscular Volume 80.5 fL (80.0-100.0); Monocytes # (auto) 1.1 10 ^3/uL (0-1.3); Monocytes % (auto) 9.3 % (0.0-12.0); Neutrophils # (auto) 9.7 10 ^3/uL (1.6-8.6); Neutrophils % (auto) 83.7 % (37.0-80.0); Nucleated Red Blood Cells % 0.3 %; Platelet Count (auto) 89 10^3/uL (140-450); Red Cell Distribution Width 24.6 % (11.8-14.3); White Blood Cell 11.6 10^3/uL (4.4-10.8)
[2024-06-30 05:24] LABS: Alanine Aminotransferase 39 U/L (7-40); Albumin 3.4 g/dL (3.2-4.8); Anion Gap 10 (5-15); BUN/Creatinine Ratio 20.7 (10.0-20.0); Calcium 9.7 mg/dL (8.7-10.4); Carbon Dioxide 27 mmol/L (20-31); Chloride 101 mmol/L (98-107); Glucose 103 mg/dL (74-106); Potassium 4.2 mmol/L (3.5-5.1); Sodium 138 mmol/L (136-145)
[2024-06-30 05:25] LABS: Total Protein 6.8 g/dL (5.7-8.2)
[2024-06-30 05:58] LABS: Alkaline Phosphatase 124 U/L (46-116); Bilirubin, Total 2.5 mg/dL (0.2-1.0); Blood Urea Nitrogen 35 mg/dL (9-23)
[2024-06-30 06:17] LABS: Aspartate Aminotransferase 138 U/L (13-40)
[2024-06-30 07:30] VITALS: PULSE 72; RESP 18; O2SAT 100
[2024-06-30] MEDS ORDERED: INSULIN LANTUS (GLARGINE) 1 /0.01ml (100units/ml) SC SCH (10:00)
[2024-06-30] MEDS: CARVEDILOL 3.125 MG TAB PO SCH (10:31)
[2024-06-30] MEDS: FAMOTIDINE (10MG/ML) 2ML VL IV SCH (10:56)
[2024-06-30] MEDS: FUROSEMIDE 40 MG/4 ML VIAL IV SCH ×2 (10:58→18:31)
[2024-06-30] MEDS: MIDODRINE HCL 10 MG TAB PO ONE (12:50)
[2024-06-30] MEDS: ONDANSETRON HCL 4 MG/2 ML VIAL IV PRN (13:18)
[2024-06-30] MEDS: MORPHINE SULFATE INJ 2 MG/ml SYRG IV PRN (13:19)
[2024-06-30] MEDS ORDERED: NOREPINEPHRINE 8 MG/250ML KIT 250 ML IV SCH (13:30)
--- NOTE | 2024-06-30 13:37 | DVHPN2 ---
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 He has been sober for 2 month The patient now is hypotensive, edematous, his add acidosis has been resolved, his last glucose is 130 and CO2 is 27, creatinine is still 1.6 Changes from previous H/P or p: Changes Eyes: No Pain, No Vision change, No Conjunctivae inflammation, No Eyelid inflammation, No Other, No Redness ENT: No Ear pain, No Ear discharge, No Nose pain, No Nose discharge, No Nose congestion, No Mouth pain, No Mouth swelling, No Throat pain, No Throat swelling, No Other Cardiovascular: Chest Pain; No Palpitations, No Orthopnea, No Paroxysmal Noc. Dyspnea, No Edema, No Lt Headedness, No Other Respiratory: No Cough, No Dry; Shortness of breath; No SOB with excertion, No Wheezing, No Hemoptysis, No Pleuritic Pain, No Sputum, No Other Gastrointestinal: No Nausea, No Vomiting, No Abdominal Pain, No Diarrhea, No Constipation, No Melena, No Hematochezia, No Other Genitourinary: No Dysuria, No Frequency, No Incontinence, No Hematuria, No Retention, No Other Musculoskeletal: No other, No neck pain, No shoulder pain, No arm pain, No back pain, No hand pain, No leg pain, No foot pain Skin: No Rash, No Lesions, No Jaundice, No Bruising, No Other Objective Vitals Vital Signs Date Time Temp Pulse Resp B/P (MAP) Pulse Ox O2 Delivery O2 Flow Rate FiO2 06/30/24 13:19 83 16 104/56 06/30/24 11:30 100 06/30/24 09:32 97.8 97.8 06/30/24 07:30 Nasal Cannula* 3 32 Intake/Output Intake and Output 06/30/24 07:00 Intake Total 602.25 ml Output Total 2720 ml Balance -2117.75 ml Intake IV Total 602.25 ml Output Urine Total 2720 ml General Appearance: Alert, Oriented X3, Cooperative, mild distress Lungs: Other (Bilateral rhonchi) Cardiovascular: Regular rate, Normal S1, Normal S2 Abdomen: Normal bowel sounds, Soft, No tenderness Extremities: Other (Pulse edema bilaterally in the upper and lower extremities) Medications Current Medications Medications Dose Ordered Sig/Mickey Route Start Time Stop Time Status Last Admin Dose Admin Levetiracetam 100 ml @ 400 mls/hr BID IV 06/29/24 22:00 06/30/24 10:34 400 MLS/HR Atorvastatin Calcium 20 mg HS PO 06/29/24 22:00 06/29/24 22:46 20 MG Hydralazine HCl 10 mg Q6HP PRN IV 06/29/24 21:30 Famotidine 20 mg DAILY IV 06/30/24 10:00 06/30/24 10:56 20 MG Apixaban 5 mg BID PO 06/29/24 22:00 06/30/24 10:53 5 MG Sodium Chloride 10 ml Q8HR IV 06/29/24 22:00 06/30/24 05:55 10 ML Acetaminophen/ Hydrocodone Bitart 1 tab Q4HP PRN PO 06/29/24 21:30 06/30/24 04:52 1 TAB Ondansetron HCl 4 mg Q4HP PRN IV 06/29/24 21:30 06/30/24 13:18 4 MG Docusate Sodium 100 mg BIDPRN PRN PO 06/29/24 21:30 Acetaminophen 650 mg Q6HP PRN PO 06/29/24 21:30 Morphine Sulfate 2 mg Q30M PRN IV 06/29/24 22:30 06/30/24 13:19 2 MG Furosemide 40 mg DAILY IV 06/30/24 10:00 Carvedilol 3.125 mg Q12HR PO 06/30/24 10:00 Dextrose/Sodium Chloride 1,000 ml @ 100 mls/hr Q10H IV 06/30/24 03:45 06/30/24 03:57 100 MLS/HR Diagnostic Test (Pha) 1 strip IQ4HR 06/30/24 04:00 06/30/24 11:57 1 STRIP Insulin Human Regular IQ4HR SC 06/30/24 04:00 Dextrose 50 ml UD PRN IV 06/30/24 04:00 Laboratory Results Laboratory Tests 06/30/24 04:20 Chemistry Test 06/29/24 16:40 06/29/24 18:44 06/29/24 20:34 06/30/24 00:18 Calcium Level 9.9 mg/dL (8.7-10.4) 10.5 mg/dL (8.7-10.4) H Magnesium Level 2.5 mg/dL (1.6-2.6) Phosphorus Level 9.8 mg/dL (2.4-5.1) H 6.4 mg/dL (2.4-5.1) H Albumin 4.3 g/dL (3.2-4.8) Total Protein 8.7 g/dL (5.7-8.2) H Test 06/30/24 04:20 Albumin 3.4 g/dL (3.2-4.8) Calcium Level 9.7 mg/dL (8.7-10.4) Total Protein 6.8 g/dL (5.7-8.2) Cardiac Markers Test 06/29/24 16:40 06/29/24 21:55 B-Type Natriuretic Peptide 3782.94 pg/mL (0-100) 3165.08 pg/mL (0-100) LFT Test 06/29/24 20:34 06/30/24 04:20 Alanine Aminotransferase (ALT) 32 U/L (7-40) 39 U/L (7-40) Alkaline Phosphatase 164 U/L (46-116) H 124 U/L (46-116) H Aspartate Amino Transferase (AST) 73 U/L (13-40) H 138 U/L (13-40) H Total Bilirubin 3.0 mg/dL (0.2-1.0) H 2.5 mg/dL (0.2-1.0) H Urinalysis Test 06/29/24 20:30 Urine Color Yellow (Yellow) Urine Clarity Turbid (Clear) H Urine pH 5.5 (5.0-9.0) Urine Specific [place] 1.012 (1.001-1.035) Urine Protein 2+ (Negative) H Urine Ketones Trace (Negative) Urine Blood 1+ /uL (Negative) H Urine Nitrite Negative (Negative) Urine Bilirubin Negative (Negative) Urine Urobilinogen Normal mg/dL (Negative) Urine Leukocyte Esterase Negative /uL (Negative) Urine RBC 10 /hpf (0 - 3) Urine WBC 6 /hpf (0 - 3) Urine Squamous Epithelial Cells Few /hpf (<5) Urine Bacteria None seen /hpf (None Seen) Urine Glucose Normal mg/dL (Normal) Blood Gas Results Test 06/29/24 17:36 06/29/24 20:37 Arterial Blood pH 7.074 (7.350-7.450) 7.215 (7.350-7.450) FiO2 % 32.0 32.0 Assessment/Plan Assessment/Plan Acute diabetic ketoacidosis, resolved Acute kidney injury in a hemodynamically mediated due to vasomotor nephropathy Hyperkalemia, resolved Hypotension Nonischemic, drug induced cardiomyopathy Pulmonary edema Thrombocytopenia, rule out sepsis Anemia AFib History of seizures History of hypertension COPD Obesity Possible chronic kidney disease Plan Discontinue the IV fluids Continue IV Lasix Consult cardiology Echocardiogram Start Levophed IV drip for blood pressure support Accu-Cheks subcutaneously and sliding scale Monitor electrolytes closely Continue Keppra Continue Eliquis Hold Coreg for now Continue Lipitor [place] p.r.n. for pain Treating ICU Not stable for transfer Full code Advance directives discussed with the patient for more than 20 minutes Plan discussed with: Patient Date of Service: Jun 30, 2024 Billing Provider: MELISSA ONEAL MD Common Visit Codes: [id number] CARE 30-74 MIN Secondary Visit Codes: [id number] CARE PLAN 30 MINUTES MELISSA ONEAL MD Jun 30, 2024 13:37
[2024-06-30] MEDS: NOREPINEPHRINE 8 MG/250ML KIT 250 ML IV SCH (13:53)
--- NOTE | 2024-06-30 17:16 | DVHINCON2 ---
Date Seen: Jun 30, 2024 Referring Physician MD Austin Reason for Consultation CHF History of Present Illness This is a 28-year-old male patient who presents to the emergency room with chief complaint of chest pain, lightheadedness and shortness of breath. He describes the chest pain as unprovoked, stabbing in nature, and left-sided with radiation to his right side of chest. Associated symptoms include shortness of breath. The patient also reports passing out at home. Per ER documentation, the patient was brought in by EMS and was found at home to have a blood sugar of 12. Upon emergency room arrival, the patient's blood sugar was noted to be 17 and dextrose 50 was given. Initial twelve lead electrocardiogram reveals atrial fibrillation (EKG machine reading as atrial flutter). Initial troponin level of 38ng/L with flat trend thereafter. Initial BNP level of 3782.94pg/mL. 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 The patient reports he has not used amphetamines since April 2024. Of note, the patient recently underwent a coronary angiogram with left heart catheterization on 06/18/24 at this facility without catheter based intervention. Past Medical History Past medical history reviewed. No other significant than mentioned above. Past Surgical History Denies all previous surgeries Family History: Patient reports no known family medical history. Family History Family history reviewed. Social History Patient admits to previous methamphetamine use, states he has been clean since April 2024 The patient denies alcohol use Patient denies tobacco use Allergies: Coded Allergies: Nitroglycerin (Verified Allergy, Unknown, 03/13/24) Home Meds Active Scripts Empagliflozin (Jardiance) 10 Mg Tab, 10 MG PO DAILY for 30 Days, #30 TAB 3 Refills Prov:ROWLEYVESNASHADE T DO 04/02/24 Carvedilol (COREG) 3.125 Mg Tab, 3.125 MG PO Q12HR for 30 Days, #60 TAB 4 Refills Prov:ROWLEYVESNASHADE T DO 04/02/24 Bumetanide (Bumetanide) 1 Mg Tab, 1 MG PO QAM for 30 Days, #30 TAB 1 Refill Prov:JASSON CLEVELAND FOUNDRY ENGINEER 03/16/24 Spironolactone (Aldactone) 25 Mg Tab, 12.5 MG PO DAILY for 30 Days, #15 TAB Prov:SHELBY LANCASTER RESIDENT 02/27/24 Reported Medications Valproic Acid (Valproic Acid) 250 Mg Cap, 250 MG PO, CAP 03/14/24 Levetiracetam (KEPPRA TABLET) 500 Mg Tb, 500 MG PO BID, TAB 03/14/24 Pantoprazole Sodium (PANTOPRAZOLE SODIUM) 40 Mg Inj, 40 MG IV DAILY, INJ 03/03/24 Dapagliflozin Propanediol (Farxiga) 10 Mg Tab, 10 MG PO DAILY, TAB 03/03/24 Quetiapine Fumerate (QUETIAPINE FUMARATE) 100 Mg Tab, 1 TAB PO DAILY 01/25/24 Levetiracetam (Levetiracetam) 500 Mg Tab, 1 TAB PO BID 01/25/24 Lisinopril (Lisinopril) 2.5 Mg Tab, 1 TAB PO DAILY 01/25/24 Apixaban Base (ELIQUIS) 5 Mg Tab, 1 TAB PO BID 01/25/24 Atorvastatin Calcium (ATORVASTATIN CALCIUM) 40 Mg Tab, 1 TAB PO DAILY 01/25/24 Home Meds Home medications reviewed. Current Medications Current Medications Medications (Trade) Dose Ordered Sig/Mickey Route PRN Reason Start Time Stop Time Status Last Admin Insulin Human (Reg)/Sodium Chloride 100 ml @ 0.5 mls/hr Q24H IV 06/29/24 18:45 06/30/24 03:50 DC 06/29/24 23:48 Dextrose 50 ml UD PRN IV SEE CURRENT ALGORITHM or SCALE 06/29/24 18:45 06/30/24 03:50 DC Diagnostic Test (Pha) (Accu-Chek Comfort Curve T) 1 strip Q90MIN 06/29/24 19:30 06/30/24 03:50 DC 06/30/24 03:19 Insulin Glargine (Lantus) 15 units DAILY SC 06/30/24 10:00 06/30/24 03:51 DC Levetiracetam 100 ml @ 400 mls/hr BID IV 06/29/24 22:00 06/30/24 13:39 DC 06/30/24 10:34 Atorvastatin Calcium (Lipitor) 20 mg HS PO 06/29/24 22:00 12/27/24 22:46 Hydralazine HCl (Apresoline Injection) 10 mg Q6HP PRN IV SBP>150 06/29/24 21:30 06/30/24 13:29 DC Famotidine (Pepcid Injection) 20 mg DAILY IV 06/30/24 10:00 06/30/24 10:56 Apixaban (Eliquis) 5 mg BID PO 06/29/24 22:00 06/30/24 10:53 Sodium Chloride (Saline Lock Ns) 10 ml Q8HR IV 06/29/24 22:00 06/30/24 14:58 Acetaminophen/ Hydrocodone Bitart ([place] 5/325MG Tab) 1 tab Q4HP PRN PO MODERATE PAIN (4-6 PAIN SCALE) 06/29/24 21:30 06/30/24 04:52 Ondansetron HCl (Zofran) 4 mg Q4HP PRN IV NAUSEA / VOMITING 06/29/24 21:30 06/30/24 13:18 Docusate Sodium (Colace Capsule) 100 mg BIDPRN PRN PO FOR CONSTIPATION 06/29/24 21:30 Acetaminophen (Tylenol Tablet) 650 mg Q6HP PRN PO PAIN SCALE 1-3 OR TEMP>100.4 06/29/24 21:30 Morphine Sulfate 2 mg Q30M PRN IV FOR CHEST PAIN 06/29/24 22:30 06/30/24 13:19 Furosemide (Lasix Injection) 40 mg DAILY IV 06/30/24 10:00 06/30/24 13:29 DC Carvedilol (Coreg Tablet) 3.125 mg Q12HR PO 06/30/24 10:00 06/30/24 13:29 DC Dextrose/Sodium Chloride 1,000 ml @ 100 mls/hr Q10H IV 06/30/24 03:45 06/30/24 13:29 DC 06/30/24 03:57 Diagnostic Test (Pha) (Accu-Chek Comfort Curve T) 1 strip IQ4HR 06/30/24 04:00 06/30/24 13:29 DC 06/30/24 11:57 Insulin Human Regular (InsuLIN R) IQ4HR SC 06/30/24 04:00 06/30/24 13:29 DC Dextrose 50 ml UD PRN IV Blood Sugar LESS THAN 60 06/30/24 04:00 Furosemide (Lasix Injection) 40 mg BIDD IV 06/30/24 18:00 Diagnostic Test (Pha) (Accu-Chek Comfort Curve T) 1 strip ACHS 06/30/24 17:00 Insulin Human Regular (InsuLIN R) ACHS SC 06/30/24 17:00 Norepinephrine Bitartrate 250 ml @ 3.75 mls/hr Q24H IV 06/30/24 13:30 06/30/24 13:53 Norepinephrine Bitartrate 250 ml @ 3.75 mls/hr Q24H IV 06/30/24 13:30 UNV Pantoprazole Sodium (Protonix Tablet) 40 mg DAILY@0600 PO 07/01/24 06:00 Levetiracetam (Keppra Tablet) 500 mg BID PO 06/30/24 22:00 Review of Systems Constitutional: No symptom reported Ears, Nose, & Throat: No symptom reported Eyes: No symptom reported Neurological: No symptoms reported Pulmonary/Respiratory: Shortness of breath Cardiovascular: Chest pain Gastrointestinal: No symptom reported Genitourinary: No symptom reported Musculoskeletal: No symptom reported Skin: No symptom reported Psychiatric: No symptom reported Endocrine: No symptom reported Hematologic/Lymphatic: No symptom reported Vital Signs Vital Signs Date Time Temp Pulse Resp B/P (MAP) Pulse Ox O2 Delivery O2 Flow Rate FiO2 06/30/24 16:15 83/36 06/30/24 14:30 82 18 96 06/30/24 09:32 97.8 97.8 06/30/24 07:30 Nasal Cannula* 3 32 Physical Exam General Appearance: Cooperative. Obese Pulmonary/Respiratory: Clear, bilateral breaths sounds. Cardiovascular/Chest: Irregular rate and rhythm. Peripheral Pulses: 2+ Radial (R). 2+ Radial (L). 2+ Pedal (R). 2+ Pedal (L) Abdominal Exam: Normal bowel sounds. Ankle Exam: 3+ pitting edema Lower extremities: 2+ pitting edema Neuro/Mental Status: A/OX4, coherent. Thoughts/Psych: Normal thought pattern. Appropriate mood and affect. Good judgment and insight. Appearance: No acute distress. Skin Exam: Normal inspection. Normal color. Warm and dry. Labs/Diagnostic Data Labs Test 06/30/24 11:54 06/30/24 04:20 06/30/24 00:18 06/29/24 21:55 Range/Units POC Glucose 130 H 70-106 mg/dl White Blood Count 11.6 H 4.4-10.8 10^3/uL Red Blood Count 3.54 L 4.5-5.90 10^6/uL Hemoglobin 8.7 L 13.5-17.5 g/dL Hematocrit 28.4 #L 41.0-53.0 % Mean Corpuscular Volume 80.5 # 80.0-100.0 fL Mean Corpuscular Hemoglobin 24.6 L 28.0-32.0 pg Mean Corpuscular Hemoglobin Concent 30.6 L 32.0-36.0 g/dL Red Cell Distribution Width 24.6 H 11.8-14.3 % Platelet Count 89 #L 140-450 10^3/uL Mean Platelet Volume 8.2 6.9-10.8 fL Neutrophils (%) (Auto) 83.7 H 37.0-80.0 % Lymphocytes (%) (Auto) 6.7 L 10.0-50.0 % Monocytes (%) (Auto) 9.3 0.0-12.0 % Eosinophils (%) (Auto) 0.0 0.0-7.0 % Basophils (%) (Auto) 0.3 0.0-2.0 % Neutrophils # (Auto) 9.7 H 1.6-8.6 10 ^3/uL Lymphocytes # (Auto) 0.8 0.4-5.4 10 ^3/uL Monocytes # (Auto) 1.1 0-1.3 10 ^3/uL Eosinophils # (Auto) 0 0-0.8 10 ^3/uL Basophils # (Auto) 0 0-0.2 10 ^3/uL Nucleated Red Blood Cells 0.3 % Sodium Level 138 136-145 mmol/L Potassium Level 4.2 3.5-5.1 mmol/L Chloride Level 101 98-107 mmol/L Carbon Dioxide Level 27 # 20-31 mmol/L Anion Gap 10 5-15 Blood Urea Nitrogen 35 H 9-23 mg/dL Creatinine 1.69 H 0.700-1.30 mg/dL Glomerular Filtration Rate Calc 55 >90 mL/min BUN/Creatinine Ratio 20.7 H 10.0-20.0 Serum Glucose 103 74-106 mg/dL Calcium Level 9.7 8.7-10.4 mg/dL Total Bilirubin 2.5 H 0.2-1.0 mg/dL Aspartate Amino Transferase (AST) 138 H 13-40 U/L Alanine Aminotransferase (ALT) 39 7-40 U/L Alkaline Phosphatase 124 H 46-116 U/L Total Protein 6.8 5.7-8.2 g/dL Albumin 3.4 3.2-4.8 g/dL Phosphorus Level 6.4 H 2.4-5.1 mg/dL B-Type Natriuretic Peptide 3165.08 0-100 pg/mL Test 06/29/24 20:52 06/29/24 20:37 06/29/24 20:34 06/29/24 20:30 Range/Units Serum Osmolality 321 H 278-298 mOsm/kg Salicylates Level < 3.0 -30 mg/dL Blood Gas Specimen Type Arterial Blood Gas Sample Site Right radial Blood Gas Patient Temperature 37.0 Arterial Blood Date Drawn [id number] Arterial Blood pH 7.215 *L 7.350-7.450 Arterial Blood Partial Pressure CO2 17.5 *L 35.0-48.0 mmHg Arterial Blood Partial Pressure O2 132.0 H 83.0-108.0 mmHg Arterial Blood HCO3 6.9 L 21.0-28.0 mmol/L Arterial Blood Oxygen Saturation 98.2 H 94.0-98.0 % Arterial Blood Base Excess -18.8 L -2.0-3.0 mmol/L Arterial Blood Oxyhemoglobin 96.9 94.0-98.0 % Arterial Blood Carboxyhemoglobin 0.6 0.5-1.5 % Arterial Blood Methemoglobin 0.7 0.0-1.5 % Clement Test Yes Blood Gas Total Hemoglobin 10.90 L 13.5-17.5 g/dL Blood Gas Liter Flow 3.00 Blood Gas Modality Nasal cannula FiO2 % 32.0 Blood Gas Critical Value Read Back Yes Blood Gas Notified Whom Dr. joseph Blood Gas Notified Time [id number] Blood Gas Notified By Isabel nicolas Troponin I High Sensitivity 48 </=54 ng/L Plasma/Serum Blood Alcohol < 3.0 <10 mg/dL Urine Color Yellow Yellow Urine Clarity Turbid H Clear Urine pH 5.5 5.0-9.0 Urine Specific [place] 1.012 1.001-1.035 Urine Protein 2+ H Negative Urine Ketones Trace Negative Urine Blood 1+ H Negative /uL Urine Nitrite Negative Negative Urine Bilirubin Negative Negative Urine Urobilinogen Normal Negative mg/dL Urine Leukocyte Esterase Negative Negative /uL Urine RBC 10 0 - 3 /hpf Urine WBC 6 0 - 3 /hpf Urine Squamous Epithelial Cells Few <5 /hpf Urine Bacteria None seen None Seen /hpf Urine Glucose Normal Normal mg/dL Urine Opiates Screen Pos NEGATIVE Urine Fentanyl Screen Neg NEGATIVE Urine Barbiturates Screen Neg NEGATIVE Urine Phencyclidine Screen Neg NEGATIVE Urine Amphetamines Screen Neg NEGATIVE Urine Benzodiazepines Screen Neg NEGATIVE Urine Cocaine Screen Neg NEGATIVE Urine Cannabinoids Screen Pos NEGATIVE Test 06/29/24 18:44 06/29/24 16:40 Range/Units Magnesium Level 2.5 1.6-2.6 mg/dL Beta-Hydroxybutyric Acid 0.328 < 0.4 mmol/L Platelet Estimate Adequate Hypochromasia (manual) Slight Anisocytosis (manual) Moderate Assessment Acute on chronic decompensated end-stage HFrEF, NYHA Class III Biventricular/dilated/drug-induced cardiomyopathy with LVEF of 10% Unspecified atrial fibrillation, Stage III, controlled rate, on Eliquis therapy at home Mitral/tricuspid valve regurgitation, moderate to severe Pulmonary hypertension, severe Anemia Thrombocytopenia Hyperkalemia Acute kidney injury Hx CVAs x 2 Methamphetamine abuse Medical non-compliance Obesity Plan/Recommendation We will continue with the following plan/recommendations (Dr. Kuhn): * Echocardiogram reveals EF 10% (on 03/31/24) * Strict intake and output, daily weights, maintain fluid restriction * Vasopressors for hemodynamic support * Switch to Quad concentration to prevent fluid overload * Initiate GDMT for CHF once off of vasopressors * [id number] VASc score: 3, HAS-BLED: 1 point * Continue NOAC therapy, Eliquis Case discussed with . Thank you for allowing us to care for this patient. Please call with any questions or concerns. Critical care time spent: 43 minutes This medical document was created using an electronic medical record system with voice recognition software and computerized dictation system. Although this document has been carefully reviewed, there might still be some phonetic and typographical errors. Occasional wrong-word or ``sound-alike substitutions may have occurred due to the inherent limitations of voice recognition software. These areas are purely typographical due to imperfections of the software programs and do not reflect any compromise in the patient's medical care. Please read the chart carefully and recognize, using context, where these substitutions have occurred. Plan discussed with: Patient NYHA Physical activity limitations: Class3(Marked) ordinary (activity causes symtoms) Date of Service: Jun 30, 2024 Billing Provider: KEVIN ARRIETA Cardiology Common Codes: [id number] INP/OBS CARE (High) Cardiology Consultation Codes: [id number] CONSULT <45MIN KEVIN ARRIETA Jun 30, 2024 17:16
[2024-06-30] MEDS: NOREPINEPHRINE BITARTRATE 32 MG in SODIUM CHL 0.9% 218 ML IV SCH (18:14)
[2024-06-30 19:15] VITALS: O2SAT 100
[2024-06-30] MEDS: SODIUM CHL 0.9% 1000 ML BAG XX ONE (20:23)
[2024-06-30 21:42] LABS: Creatinine, Urine 52.12 mg/dL (30.0-125.0)
[2024-06-30] MEDS: levETIRAcetam 500 MG TAB PO SCH (21:45)
[2024-07-01 04:13] LABS: Eosinophils # (auto) 0.1 10 ^3/uL (0-0.8); Nucleated Red Blood Cells % 0.2 %
[2024-07-01 04:15] LABS: Basophils # (auto) 0 10 ^3/uL (0-0.2); Hematocrit 31.2 % (41.0-53.0); Hemoglobin 9.6 g/dL (13.5-17.5); Lymphocytes # (auto) 0.9 10 ^3/uL (0.4-5.4); Lymphocytes % (auto) 8.3 % (10.0-50.0); Mean Corpuscular Hemoglobin 25.5 pg (28.0-32.0); Mean Corpuscular Hgb Conc. 30.7 g/dL (32.0-36.0); Mean Corpuscular Volume 83.1 fL (80.0-100.0); Monocytes # (auto) 1.1 10 ^3/uL (0-1.3); Monocytes % (auto) 10.2 % (0.0-12.0); Neutrophils # (auto) 8.8 10 ^3/uL (1.6-8.6); Neutrophils % (auto) 80.5 % (37.0-80.0); Platelet Count (auto) 232 10^3/uL (140-450); Red Blood Cells 3.76 10^6/uL (4.5-5.90); White Blood Cell 10.9 10^3/uL (4.4-10.8)
[2024-07-01 04:28] LABS: Anion Gap 6 (5-15); Calcium 8.9 mg/dL (8.7-10.4); Carbon Dioxide 28 mmol/L (20-31); Chloride 102 mmol/L (98-107); Glucose 101 mg/dL (74-106); LDL Cholesterol 61 mg/dL (< 100); Potassium 3.5 mmol/L (3.5-5.1); Sodium 136 mmol/L (136-145); Triglycerides 93 mg/dL (< 150)
[2024-07-01 04:29] LABS: Cholesterol 89 mg/dL (< 200); Total Protein 6.4 g/dL (5.7-8.2)
[2024-07-01 04:38] LABS: Red Cell Distribution Width 25.8 % (11.8-14.3)
[2024-07-01 04:55] LABS: Alanine Aminotransferase 47 U/L (7-40); Alkaline Phosphatase 124 U/L (46-116); Aspartate Aminotransferase 128 U/L (13-40); Bilirubin, Total 1.9 mg/dL (0.2-1.0)
[2024-07-01 04:56] LABS: HDL Cholesterol 13 mg/dL (40-59)
[2024-07-01 05:06] LABS: BUN/Creatinine Ratio 18.9 (10.0-20.0)
[2024-07-01 05:08] LABS: Blood Urea Nitrogen 25 mg/dL (9-23)
--- NOTE | 2024-07-01 05:22 | ECG ---
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
[2024-07-01 05:58] LABS: Anisocytosis Slight; Hypochromia Moderate
[2024-07-01 06:00] LABS: Ovalocytes FEW
[2024-07-01 06:01] LABS: Platelet Estimate Adequa
[2024-07-01] MEDS: PANTOPRAZOLE 40 MG TAB PO SCH (06:13)
[2024-07-01 07:31] VITALS: PULSE 68; RESP 19; O2SAT 98
--- NOTE | 2024-07-01 11:27 | DVHPN2 ---
Consult Progress Note Subjective Other Systems: Patient remains in atrial fibrillation on pharmacy manager Patient remains on Levophed drip. Objective vital signs Vital Sign Date Time Temp Pulse Resp B/P (MAP) Pulse Ox O2 Delivery O2 Flow Rate FiO2 07/01/24 10:00 77 18 126/86 (99) 99 07/01/24 08:00 97.9 97.9 07/01/24 07:31 Nasal Cannula* 2 28 Total Intake and Output 06/30/24 06/30/24 07/01/24 15:00 23:00 07:00 Intake Total 753.75 ml Output Total 400 ml 820 ml 900 ml Balance 353.75 ml -820 ml -900 ml medications Current Medications Medications Dose Ordered Sig/Mickey Route Start Time Stop Time Status Last Admin Dose Admin Atorvastatin Calcium 20 mg HS PO 06/29/24 22:00 06/30/24 21:45 20 MG Famotidine 20 mg DAILY IV 06/30/24 10:00 07/01/24 10:01 20 MG Apixaban 5 mg BID PO 06/29/24 22:00 07/01/24 10:01 5 MG Sodium Chloride 10 ml Q8HR IV 06/29/24 22:00 07/01/24 05:56 10 ML Acetaminophen/ Hydrocodone Bitart 1 tab Q4HP PRN PO 06/29/24 21:30 06/30/24 04:52 1 TAB Ondansetron HCl 4 mg Q4HP PRN IV 06/29/24 21:30 06/30/24 18:29 4 MG Docusate Sodium 100 mg BIDPRN PRN PO 06/29/24 21:30 Acetaminophen 650 mg Q6HP PRN PO 06/29/24 21:30 Morphine Sulfate 2 mg Q30M PRN IV 06/29/24 22:30 07/01/24 06:29 2 MG Dextrose 50 ml UD PRN IV 06/30/24 04:00 Furosemide 40 mg BIDD IV 06/30/24 18:00 07/01/24 06:12 40 MG Diagnostic Test (Pha) 1 strip ACHS 06/30/24 17:00 07/01/24 06:18 1 STRIP Insulin Human Regular ACHS SC 06/30/24 17:00 Norepinephrine Bitartrate 250 ml @ 3.75 mls/hr Q24H IV 06/30/24 13:30 UNV Pantoprazole Sodium 40 mg DAILY@0600 PO 07/01/24 06:00 07/01/24 06:13 40 MG Levetiracetam 500 mg BID PO 06/30/24 22:00 07/01/24 10:01 500 MG Norepinephrine Bitartrate 32 mg/ Sodium Chloride 250 ml @ 0.938 mls/ hr Q24H IV 06/30/24 17:15 06/30/24 18:14 5.625 MLS/HR Examination: GENERAL:Normal, LUNGS:Normal, CVS:Normal, NEURO:Normal laboratory and microbiology Laboratory Tests 07/01/24 03:49 Test 07/01/24 03:49 Range/Units Serum Glucose 101 74-106 mg/dL Problem List/Assessment/Plan Problem List/Assessment/Plan Acute on chronic decompensated end-stage HFrEF, NYHA Class III 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 Kuhn): * Echocardiogram reveals EF 10% (on 03/31/24) * Strict intake and output, daily weights, maintain fluid restriction * Vasopressors for hemodynamic support * Switch to Quad concentration to prevent fluid overload * Initiate GDMT for CHF once off of vasopressors * [id number] VASc score: 3, HAS-BLED: 1 point * Continue NOAC therapy, Eliquis * Diuresis as tolerated Thank you for allowing us to care for this patient. Please call with any questions or concerns. Critical care time spent: 36 minutes This medical document was created using an electronic medical record system with voice recognition software and computerized dictation system. Although this document has been carefully reviewed, there might still be some phonetic and typographical errors. Occasional wrong-word or ``sound-alike substitutions may have occurred due to the inherent limitations of voice recognition software. These areas are purely typographical due to imperfections of the software programs and do not reflect any compromise in the patient's medical care. Please read the chart carefully and recognize, using context, where these substitutions have occurred. Plan discussed with: Patient, Other (Bedside RN) Date of Service: Jul 01, 2024 Billing Provider: KEVIN ARRIETA Common Visit Codes: [id number] CARE 30-74 MIN KEVIN ARRIETA Jul 01, 2024 11:27
--- NOTE | 2024-07-01 13:56 | DVHPN2 ---
Subjective Still on Levophed drip Changes from previous H/P or p: Changes Eyes: No Pain, No Vision change, No Conjunctivae inflammation, No Eyelid inflammation, No Other, No Redness ENT: No Ear pain, No Ear discharge, No Nose pain, No Nose discharge, No Nose congestion, No Mouth pain, No Mouth swelling, No Throat pain, No Throat swelling, No Other Cardiovascular: Chest Pain; No Palpitations, No Orthopnea, No Paroxysmal Noc. Dyspnea, No Edema, No Lt Headedness, No Other Respiratory: No Cough, No Dry; Shortness of breath; No SOB with excertion, No Wheezing, No Hemoptysis, No Pleuritic Pain, No Sputum, No Other Gastrointestinal: No Nausea, No Vomiting, No Abdominal Pain, No Diarrhea, No Constipation, No Melena, No Hematochezia, No Other Genitourinary: No Dysuria, No Frequency, No Incontinence, No Hematuria, No Retention, No Other Musculoskeletal: No other, No neck pain, No shoulder pain, No arm pain, No back pain, No hand pain, No leg pain, No foot pain Skin: No Rash, No Lesions, No Jaundice, No Bruising, No Other Objective Vitals Vital Signs Date Time Temp Pulse Resp B/P (MAP) Pulse Ox O2 Delivery O2 Flow Rate FiO2 07/01/24 12:57 96 17 106/86 07/01/24 12:45 99 07/01/24 08:00 97.9 97.9 07/01/24 07:31 Nasal Cannula* 2 28 Intake/Output Intake and Output 07/01/24 07:00 Intake Total 753.75 ml Output Total 2120 ml Balance -1366.25 ml Intake IV Total 753.75 ml Output Urine Total 2120 ml General Appearance: Alert, Oriented X3, Cooperative, mild distress Lungs: Other (Bilateral rhonchi) Cardiovascular: Regular rate, Normal S1, Normal S2 Abdomen: Normal bowel sounds, Soft, No tenderness Extremities: Other (Pulse edema bilaterally in the upper and lower extremities) Medications Current Medications Medications Dose Ordered Sig/Mickey Route Start Time Stop Time Status Last Admin Dose Admin Atorvastatin Calcium 20 mg HS PO 06/29/24 22:00 06/30/24 21:45 20 MG Famotidine 20 mg DAILY IV 06/30/24 10:00 07/01/24 10:01 20 MG Apixaban 5 mg BID PO 06/29/24 22:00 07/01/24 10:01 5 MG Sodium Chloride 10 ml Q8HR IV 06/29/24 22:00 07/01/24 13:17 10 ML Acetaminophen/ Hydrocodone Bitart 1 tab Q4HP PRN PO 06/29/24 21:30 06/30/24 04:52 1 TAB Ondansetron HCl 4 mg Q4HP PRN IV 06/29/24 21:30 07/01/24 12:14 4 MG Docusate Sodium 100 mg BIDPRN PRN PO 06/29/24 21:30 Acetaminophen 650 mg Q6HP PRN PO 06/29/24 21:30 Morphine Sulfate 2 mg Q30M PRN IV 06/29/24 22:30 07/01/24 12:14 2 MG Dextrose 50 ml UD PRN IV 06/30/24 04:00 Furosemide 40 mg BIDD IV 06/30/24 18:00 07/01/24 06:12 40 MG Diagnostic Test (Pha) 1 strip ACHS 06/30/24 17:00 07/01/24 11:29 1 STRIP Insulin Human Regular ACHS SC 06/30/24 17:00 Norepinephrine Bitartrate 250 ml @ 3.75 mls/hr Q24H IV 06/30/24 13:30 UNV Pantoprazole Sodium 40 mg DAILY@0600 PO 07/01/24 06:00 07/01/24 06:13 40 MG Levetiracetam 500 mg BID PO 06/30/24 22:00 07/01/24 10:01 500 MG Norepinephrine Bitartrate 32 mg/ Sodium Chloride 250 ml @ 0.938 mls/ hr Q24H IV 06/30/24 17:15 06/30/24 18:14 5.625 MLS/HR Laboratory Results Laboratory Tests 07/01/24 03:49 Chemistry Test 07/01/24 03:49 Albumin 3.0 g/dL (3.2-4.8) L Calcium Level 8.9 mg/dL (8.7-10.4) Magnesium Level 2.0 mg/dL (1.6-2.6) Total Protein 6.4 g/dL (5.7-8.2) Lipid panel Test 07/01/24 03:49 Cholesterol Level 89 mg/dL (< 200) HDL Cholesterol 13 mg/dL (40-59) L Triglycerides Level 93 mg/dL (< 150) LFT Test 07/01/24 03:49 Alanine Aminotransferase (ALT) 47 U/L (7-40) H Alkaline Phosphatase 124 U/L (46-116) H Aspartate Amino Transferase (AST) 128 U/L (13-40) H Total Bilirubin 1.9 mg/dL (0.2-1.0) H Urinalysis Test 06/29/24 20:30 06/30/24 21:42 Urine Color Yellow (Yellow) Urine Clarity Turbid (Clear) H Urine pH 5.5 (5.0-9.0) Urine Specific [place] 1.012 (1.001-1.035) Urine Protein 2+ (Negative) H Urine Ketones Trace (Negative) Urine Blood 1+ /uL (Negative) H Urine Nitrite Negative (Negative) Urine Bilirubin Negative (Negative) Urine Urobilinogen Normal mg/dL (Negative) Urine Leukocyte Esterase Negative /uL (Negative) Urine RBC 10 /hpf (0 - 3) Urine WBC 6 /hpf (0 - 3) Urine Squamous Epithelial Cells Few /hpf (<5) Urine Bacteria None seen /hpf (None Seen) Urine Glucose Normal mg/dL (Normal) Urine Creatinine 52.12 mg/dL (30.0-125.0) Urine Sodium 62 mmol/L (40-220) Assessment/Plan Assessment/Plan Acute diabetic ketoacidosis, resolved Acute kidney injury in a hemodynamically mediated due to vasomotor nephropathy Hyperkalemia, resolved Hypotension Nonischemic, drug induced cardiomyopathy Pulmonary edema Thrombocytopenia, rule out sepsis Anemia AFib History of seizures History of hypertension COPD Obesity Possible chronic kidney disease Plan Discontinue the IV fluids Continue IV Lasix Consult cardiology Echocardiogram Start Levophed IV drip for blood pressure support Accu-Cheks subcutaneously and sliding scale Monitor electrolytes closely Continue Keppra Continue Eliquis Hold Coreg for now Continue Lipitor Marshall p.r.n. for pain Treating ICU Not stable for transfer Full code Advance directives discussed with the patient for more than 20 minutes 07/01/2024: Continue norepinephrine as needed Continue IV Lasix 40 mg twice a day Tapered down the Levophed as tolerated Continue Keppra p.o. Eliquis Full code Plan discussed with: Patient Date of Service: Jul 01, 2024 Billing Provider: MELISSA ONEAL MD Common Visit Codes: [id number] INP/OBS CARE(HIGH) MELISSA ONEAL MD Jul 01, 2024 13:56
--- NOTE | 2024-07-01 17:06 | DVHINCON2 ---
Date of service: Jul 01, 2024 Referring Physician Valentin Wise NP Reason for Consultation DAWNA History of Present Illness Mr. Malone is a 28-year-old male with known history of diabetes, hypertension, obesity presented for further evaluation and management of progressive exertional dyspnea. His clinical course in emergency department was notable for diagnosis of diabetic ketoacidosis. He was seen in the ER essentially so mnolent. Most of the history was obtained through the chart. Review of laboratory data notable for significant improvement in kidney function over the previous 48 hours. Past Medical History Chronic daily disease Hypertension Coronary artery disease Congestive heart failure Seizure disorder Allergies: Coded Allergies: Nitroglycerin (Verified Allergy, Unknown, 03/13/24) Home Meds Active Scripts Empagliflozin (Jardiance) 10 Mg Tab, 10 MG PO DAILY for 30 Days, #30 TAB 3 Refills Prov:SHADE ROWLEY DO 04/02/24 Carvedilol (COREG) 3.125 Mg Tab, 3.125 MG PO Q12HR for 30 Days, #60 TAB 4 Refills Prov:SHADE ROWLEY DO 04/02/24 Bumetanide (Bumetanide) 1 Mg Tab, 1 MG PO QAM for 30 Days, #30 TAB 1 Refill Prov:JASSON [place] [employer]ER 03/16/24 Spironolactone (Aldactone) 25 Mg Tab, 12.5 MG PO DAILY for 30 Days, #15 TAB Prov:SHELBY LANCASTER RESIDENT 02/27/24 Reported Medications Valproic Acid (Valproic Acid) 250 Mg Cap, 250 MG PO, CAP 03/14/24 Levetiracetam (KEPPRA TABLET) 500 Mg Tb, 500 MG PO BID, TAB 03/14/24 Pantoprazole Sodium (PANTOPRAZOLE SODIUM) 40 Mg Inj, 40 MG IV DAILY, INJ 03/03/24 Dapagliflozin Propanediol (Farxiga) 10 Mg Tab, 10 MG PO DAILY, TAB 03/03/24 Quetiapine Fumerate (QUETIAPINE FUMARATE) 100 Mg Tab, 1 TAB PO DAILY 01/25/24 Levetiracetam (Levetiracetam) 500 Mg Tab, 1 TAB PO BID 01/25/24 Lisinopril (Lisinopril) 2.5 Mg Tab, 1 TAB PO DAILY 01/25/24 Apixaban Base (ELIQUIS) 5 Mg Tab, 1 TAB PO BID 01/25/24 Atorvastatin Calcium (ATORVASTATIN CALCIUM) 40 Mg Tab, 1 TAB PO DAILY 01/25/24 Current Medications Current Medications Medications (Trade) Dose Ordered Sig/Mickey Route PRN Reason Start Time Stop Time Status Last Admin Furosemide (Lasix Injection) 40 mg BIDD IV 06/30/24 18:00 07/01/24 06:12 Diagnostic Test (Pha) (Accu-Chek Comfort Curve T) 1 strip ACHS 06/30/24 17:00 07/01/24 11:29 Insulin Human Regular (InsuLIN R) ACHS SC 06/30/24 17:00 Pantoprazole Sodium (Protonix Tablet) 40 mg DAILY@0600 PO 07/01/24 06:00 07/01/24 06:13 Levetiracetam (Keppra Tablet) 500 mg BID PO 06/30/24 22:00 07/01/24 10:01 Norepinephrine Bitartrate 32 mg/ Sodium Chloride 250 ml @ 0.938 mls/ hr Q24H IV 06/30/24 17:15 06/30/24 18:14 Family History: Patient reports no known family medical history. Review of Systems full review of systems unable to be obtained due to patient's somnolence H&P Exam Vital Signs/I&O Vital Sign Date Time Temp Pulse Resp B/P (MAP) Pulse Ox O2 Delivery O2 Flow Rate FiO2 07/01/24 16:22 94 17 128/53 07/01/24 15:00 99 07/01/24 08:00 97.9 97.9 07/01/24 07:31 Nasal Cannula* 2 28 Intake and Output 06/30/24 07/01/24 19:00 07:00 Intake Total 753.75 ml Output Total 800 ml 1320 ml Balance -46.25 ml -1320 ml Intake IV Total 753.75 ml Output Urine Total 800 ml 1320 ml Physical Exam gen: obese, somnolent heent: nc lungs: distant breath sounds cvs: no rub abd: soft ext:+ edema skin: no rash neuro: somnolent, unable to participate in neuro exam Labs/Diagnostic Data Labs/Diagnostic Data Laboratory Tests Test 07/01/24 11:26 07/01/24 06:16 07/01/24 03:49 06/30/24 21:42 Range/Units POC Glucose 92 89 107 H 70-106 mg/dl White Blood Count 10.9 H 4.4-10.8 10^3/uL Red Blood Count 3.76 L 4.5-5.90 10^6/uL Hemoglobin 9.6 L 13.5-17.5 g/dL Hematocrit 31.2 L 41.0-53.0 % Mean Corpuscular Volume 83.1 80.0-100.0 fL Mean Corpuscular Hemoglobin 25.5 L 28.0-32.0 pg Mean Corpuscular Hemoglobin Concent 30.7 L 32.0-36.0 g/dL Red Cell Distribution Width 25.8 H 11.8-14.3 % Platelet Count 232 # 140-450 10^3/uL Mean Platelet Volume 7.3 6.9-10.8 fL Neutrophils (%) (Auto) 80.5 H 37.0-80.0 % Lymphocytes (%) (Auto) 8.3 L 10.0-50.0 % Monocytes (%) (Auto) 10.2 0.0-12.0 % Eosinophils (%) (Auto) 1.0 0.0-7.0 % Basophils (%) (Auto) 0.0 0.0-2.0 % Neutrophils # (Auto) 8.8 H 1.6-8.6 10 ^3/uL Lymphocytes # (Auto) 0.9 0.4-5.4 10 ^3/uL Monocytes # (Auto) 1.1 0-1.3 10 ^3/uL Eosinophils # (Auto) 0.1 0-0.8 10 ^3/uL Basophils # (Auto) 0 0-0.2 10 ^3/uL Nucleated Red Blood Cells 0.2 % Platelet Estimate [place] Clumped Platelets Moderate Hypochromasia (manual) Moderate Anisocytosis (manual) Slight Ovalocytes Few Marii Cells Few Sodium Level 136 136-145 mmol/L Potassium Level 3.5 3.5-5.1 mmol/L Chloride Level 102 98-107 mmol/L Carbon Dioxide Level 28 20-31 mmol/L Anion Gap 6 5-15 Blood Urea Nitrogen 25 #H 9-23 mg/dL Creatinine 1.32 H 0.700-1.30 mg/dL Glomerular Filtration Rate Calc 74 >90 mL/min BUN/Creatinine Ratio 18.9 10.0-20.0 Serum Glucose 101 74-106 mg/dL Calcium Level 8.9 8.7-10.4 mg/dL Magnesium Level 2.0 1.6-2.6 mg/dL Total Bilirubin 1.9 H 0.2-1.0 mg/dL Aspartate Amino Transferase (AST) 128 H 13-40 U/L Alanine Aminotransferase (ALT) 47 H 7-40 U/L Alkaline Phosphatase 124 H 46-116 U/L Total Protein 6.4 5.7-8.2 g/dL Albumin 3.0 L 3.2-4.8 g/dL Triglycerides Level 93 < 150 mg/dL Cholesterol Level 89 < 200 mg/dL LDL Cholesterol 61 < 100 mg/dL HDL Cholesterol 13 L 40-59 mg/dL Urine Creatinine 52.12 30.0-125.0 mg/dL Urine Sodium 62 40-220 mmol/L Test 06/30/24 16:49 06/30/24 11:54 06/30/24 08:04 06/30/24 04:46 Range/Units POC Glucose 91 130 H 105 97 70-106 mg/dl Test 06/30/24 04:20 06/30/24 03:16 06/30/24 01:56 06/30/24 00:18 Range/Units White Blood Count 11.6 H 4.4-10.8 10^3/uL Red Blood Count 3.54 L 4.5-5.90 10^6/uL Hemoglobin 8.7 L 13.5-17.5 g/dL Hematocrit 28.4 #L 41.0-53.0 % Mean Corpuscular Volume 80.5 # 80.0-100.0 fL Mean Corpuscular Hemoglobin 24.6 L 28.0-32.0 pg Mean Corpuscular Hemoglobin Concent 30.6 L 32.0-36.0 g/dL Red Cell Distribution Width 24.6 H 11.8-14.3 % Platelet Count 89 #L 140-450 10^3/uL Mean Platelet Volume 8.2 6.9-10.8 fL Neutrophils (%) (Auto) 83.7 H 37.0-80.0 % Lymphocytes (%) (Auto) 6.7 L 10.0-50.0 % Monocytes (%) (Auto) 9.3 0.0-12.0 % Eosinophils (%) (Auto) 0.0 0.0-7.0 % Basophils (%) (Auto) 0.3 0.0-2.0 % Neutrophils # (Auto) 9.7 H 1.6-8.6 10 ^3/uL Lymphocytes # (Auto) 0.8 0.4-5.4 10 ^3/uL Monocytes # (Auto) 1.1 0-1.3 10 ^3/uL Eosinophils # (Auto) 0 0-0.8 10 ^3/uL Basophils # (Auto) 0 0-0.2 10 ^3/uL Nucleated Red Blood Cells 0.3 % Sodium Level 138 136-145 mmol/L Potassium Level 4.2 3.5-5.1 mmol/L Chloride Level 101 98-107 mmol/L Carbon Dioxide Level 27 # 20-31 mmol/L Anion Gap 10 5-15 Blood Urea Nitrogen 35 H 9-23 mg/dL Creatinine 1.69 H 0.700-1.30 mg/dL Glomerular Filtration Rate Calc 55 >90 mL/min BUN/Creatinine Ratio 20.7 H 10.0-20.0 Serum Glucose 103 74-106 mg/dL Calcium Level 9.7 8.7-10.4 mg/dL Total Bilirubin 2.5 H 0.2-1.0 mg/dL Aspartate Amino Transferase (AST) 138 H 13-40 U/L Alanine Aminotransferase (ALT) 39 7-40 U/L Alkaline Phosphatase 124 H 46-116 U/L Total Protein 6.8 5.7-8.2 g/dL Albumin 3.4 3.2-4.8 g/dL POC Glucose 104 123 H 70-106 mg/dl Phosphorus Level 6.4 H 2.4-5.1 mg/dL Test 06/30/24 00:17 06/29/24 22:45 06/29/24 21:55 06/29/24 21:38 Range/Units POC Glucose 155 H 143 H 133 H 70-106 mg/dl B-Type Natriuretic Peptide 3165.08 0-100 pg/mL Test 06/29/24 20:52 06/29/24 20:37 06/29/24 20:34 06/29/24 20:30 Range/Units Serum Osmolality 321 H 278-298 mOsm/kg Salicylates Level < 3.0 -30 mg/dL Blood Gas Specimen Type Arterial Blood Gas Sample Site Right radial Blood Gas Patient Temperature 37.0 Arterial Blood Date Drawn [id number] Arterial Blood pH 7.215 *L 7.350-7.450 Arterial Blood Partial Pressure CO2 17.5 *L 35.0-48.0 mmHg Arterial Blood Partial Pressure O2 132.0 H 83.0-108.0 mmHg Arterial Blood HCO3 6.9 L 21.0-28.0 mmol/L Arterial Blood Oxygen Saturation 98.2 H 94.0-98.0 % Arterial Blood Base Excess -18.8 L -2.0-3.0 mmol/L Arterial Blood Oxyhemoglobin 96.9 94.0-98.0 % Arterial Blood Carboxyhemoglobin 0.6 0.5-1.5 % Arterial Blood Methemoglobin 0.7 0.0-1.5 % Clement Test Yes Blood Gas Total Hemoglobin 10.90 L 13.5-17.5 g/dL Blood Gas Liter Flow 3.00 Blood Gas Modality Nasal cannula FiO2 % 32.0 Blood Gas Critical Value Read Back Yes Blood Gas Notified Whom Dr. joseph Blood Gas Notified Time [id number] Blood Gas Notified By Manager Interventional ruben nicolas Sodium Level 139 136-145 mmol/L Potassium Level 4.7 3.5-5.1 mmol/L Chloride Level 100 98-107 mmol/L Carbon Dioxide Level < 10 *L 20-31 mmol/L Anion Gap 29.47963 H 5-15 Blood Urea Nitrogen 35 H 9-23 mg/dL Creatinine 2.35 H 0.700-1.30 mg/dL Glomerular Filtration Rate Calc 37 >90 mL/min BUN/Creatinine Ratio 14.9 10.0-20.0 Serum Glucose 99 # 74-106 mg/dL Calcium Level 10.5 H 8.7-10.4 mg/dL Total Bilirubin 3.0 H 0.2-1.0 mg/dL Aspartate Amino Transferase (AST) 73 H 13-40 U/L Alanine Aminotransferase (ALT) 32 7-40 U/L Alkaline Phosphatase 164 H 46-116 U/L Troponin I High Sensitivity 48 </=54 ng/L Total Protein 8.7 H 5.7-8.2 g/dL Albumin 4.3 3.2-4.8 g/dL Plasma/Serum Blood Alcohol < 3.0 <10 mg/dL Urine Color Yellow Yellow Urine Clarity Turbid H Clear Urine pH 5.5 5.0-9.0 Urine Specific [place] 1.012 1.001-1.035 Urine Protein 2+ H Negative Urine Ketones Trace Negative Urine Blood 1+ H Negative /uL Urine Nitrite Negative Negative Urine Bilirubin Negative Negative Urine Urobilinogen Normal Negative mg/dL Urine Leukocyte Esterase Negative Negative /uL Urine RBC 10 0 - 3 /hpf Urine WBC 6 0 - 3 /hpf Urine Squamous Epithelial Cells Few <5 /hpf Urine Bacteria None seen None Seen /hpf Urine Glucose Normal Normal mg/dL Urine Opiates Screen Pos NEGATIVE Urine Fentanyl Screen Neg NEGATIVE Urine Barbiturates Screen Neg NEGATIVE Urine Phencyclidine Screen Neg NEGATIVE Urine Amphetamines Screen Neg NEGATIVE Urine Benzodiazepines Screen Neg NEGATIVE Urine Cocaine Screen Neg NEGATIVE Urine Cannabinoids Screen Pos NEGATIVE Test 06/29/24 19:57 06/29/24 18:44 06/29/24 17:39 06/29/24 17:36 Range/Units POC Glucose 100 112 H 70-106 mg/dl Serum Osmolality 319 H 278-298 mOsm/kg Phosphorus Level 9.8 H 2.4-5.1 mg/dL Magnesium Level 2.5 1.6-2.6 mg/dL Troponin I High Sensitivity 42 </=54 ng/L Beta-Hydroxybutyric Acid 0.328 < 0.4 mmol/L Blood Gas Specimen Type Arterial Blood Gas Sample Site Right radial Blood Gas Patient Temperature 37.0 Arterial Blood Date Drawn [id number] Arterial Blood pH 7.074 *L 7.350-7.450 Arterial Blood Partial Pressure CO2 < 12.6 *L 35.0-48.0 mmHg Arterial Blood Partial Pressure O2 141.0 H 83.0-108.0 mmHg Arterial Blood Oxygen Saturation 97.5 94.0-98.0 % Arterial Blood Oxyhemoglobin 95.9 94.0-98.0 % Arterial Blood Carboxyhemoglobin 1.0 0.5-1.5 % Arterial Blood Methemoglobin 0.6 0.0-1.5 % Clement Test Modified Blood Gas Total Hemoglobin 10.90 L 13.5-17.5 g/dL Blood Gas Liter Flow 3.00 Blood Gas Modality Nasal cannula FiO2 % 32.0 Blood Gas Critical Value Read Back Yes Blood Gas Notified Whom nikolay Joseph md Blood Gas Notified Time [id number] Blood Gas Notified By tommy Weaver rrt Test 06/29/24 16:40 Range/Units White Blood Count 11.3 H 4.4-10.8 10^3/uL Red Blood Count 3.90 L 4.5-5.90 10^6/uL Hemoglobin 9.5 L 13.5-17.5 g/dL Hematocrit 35.8 #L 41.0-53.0 % Mean Corpuscular Volume 91.6 # 80.0-100.0 fL Mean Corpuscular Hemoglobin 24.4 L 28.0-32.0 pg Mean Corpuscular Hemoglobin Concent 26.7 L 32.0-36.0 g/dL Red Cell Distribution Width 26.4 H 11.8-14.3 % Platelet Count 337 # 140-450 10^3/uL Mean Platelet Volume 8.2 6.9-10.8 fL Neutrophils (%) (Auto) 87.2 H 37.0-80.0 % Lymphocytes (%) (Auto) 5.9 L 10.0-50.0 % Monocytes (%) (Auto) 6.4 0.0-12.0 % Eosinophils (%) (Auto) 0.0 0.0-7.0 % Basophils (%) (Auto) 0.5 0.0-2.0 % Neutrophils # (Auto) 9.9 H 1.6-8.6 10 ^3/uL Lymphocytes # (Auto) 0.7 0.4-5.4 10 ^3/uL Monocytes # (Auto) 0.7 0-1.3 10 ^3/uL Eosinophils # (Auto) 0 0-0.8 10 ^3/uL Basophils # (Auto) 0.1 0-0.2 10 ^3/uL Nucleated Red Blood Cells 0.2 % Platelet Estimate Adequate Hypochromasia (manual) Slight Anisocytosis (manual) Moderate Sodium Level 137 136-145 mmol/L Potassium Level 5.2 H 3.5-5.1 mmol/L Chloride Level 99 98-107 mmol/L Carbon Dioxide Level < 10 #*L 20-31 mmol/L Anion Gap 28.70809 H 5-15 Blood Urea Nitrogen 37 H 9-23 mg/dL Creatinine 2.44 H 0.700-1.30 mg/dL Glomerular Filtration Rate Calc 36 >90 mL/min BUN/Creatinine Ratio 15.2 10.0-20.0 Serum Glucose 228 #H 74-106 mg/dL Calcium Level 9.9 8.7-10.4 mg/dL Troponin I High Sensitivity 38 </=54 ng/L B-Type Natriuretic Peptide 3782.94 0-100 pg/mL Assessment IMP: 1) Hemodynamically mediated acute kidney injury and vasomotor nephropathy in the setting of prerenal state/ shock 2) DKA - resolved 3) Shock 4) Morbid Obesity 5) Anemia 6) hx of HF REC: - agree with holding ARB - loop diuretic to achieve desired ECF volume - wean off vasopressors as tolerated - avoidance of NSAIDs, IV contrast if able Will continue to follow closely along with you. Plan discussed with: Other PIO WINTERS MD Jul 01, 2024 17:06
[2024-07-02 04:53] LABS: Chloride 99 mmol/L (98-107); Potassium 3.7 mmol/L (3.5-5.1)
[2024-07-02 04:54] LABS: Anion Gap 7 (5-15); Calcium 8.7 mg/dL (8.7-10.4); Carbon Dioxide 29 mmol/L (20-31)
[2024-07-02 04:59] LABS: BUN/Creatinine Ratio 19.4 (10.0-20.0); Blood Urea Nitrogen 20 mg/dL (9-23); Glucose 76 mg/dL (74-106)
[2024-07-02 05:00] LABS: Magnesium 1.8 mg/dL (1.6-2.6)
[2024-07-02 05:21] LABS: Sodium 135 mmol/L (136-145)
[2024-07-02 07:58] VITALS: PULSE 78; RESP 18; O2SAT 100
[2024-07-02] MEDS: MORPHINE SULFATE INJ 2 MG/ml SYRG IV PRN (09:08)
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
--- NOTE | 2024-07-02 13:00 | DVH ---
Upper Extremity Venous Duplex Clinical History: edema Comparison: US LT UPPER DVT on DOS: 06/29/24, US LT UPPER DVT on DOS: 06/16/24 Technique: Duplex Doppler evaluation of the venous system of the RIGHT lower neck and upper extremity including color Doppler and spectral/pulsed waveform analysis was performed. Findings: The internal jugular vein demonstrates appropriate compressibility and waveform variability. The subclavian vein is patent on color Doppler evaluation without intraluminal thrombus and demonstra sandro waveform variability. The visualized portion of the brachiocephalic vein is patent on color Doppler evaluation without intr aluminal thrombus and demonstrates waveform variability. The axillary vein demonstrates appropriate compressibility and waveform variability. The brachial veins demonstrate incomplete compressibility. The basilic vein demonstrates appropriate compressibility and patency on Doppler evaluation. The cephalic vein demonstrates appropriate compressibility and patency on Doppler evaluation. Impression: Partial thrombus in the left basilic vein.
[2024-07-02] MEDS: BUMETANIDE 1 MG TAB PO ONE (13:13)
--- NOTE | 2024-07-02 13:18 | ECG ---
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
--- NOTE | 2024-07-02 16:22 | DVHPN2 ---
Progress Note Date Seen: Jul 02, 2024 Medical Necessity Reason Pt with a Central, PICC or Fol: No Subjective Review of Systems: RESPIRATORY:Abnormal Other Systems: Patient seen and examined by myself in f/u today Objective vital signs Vital Sign Date Time Temp Pulse Resp B/P (MAP) Pulse Ox O2 Delivery O2 Flow Rate FiO2 07/02/24 15:02 136 28 103/77 (86) 95 07/02/24 07:58 97.6 97.6 07/02/24 07:58 Nasal Cannula* 2 28 Total Intake and Output 07/01/24 07/01/24 07/02/24 15:00 23:00 07:00 Output Total 2250 ml 300 ml Balance -2250 ml -300 ml medications Current Medications Medications Dose Ordered Sig/Mickey Route Start Time Stop Time Status Last Admin Dose Admin Atorvastatin Calcium 20 mg HS PO 06/29/24 22:00 07/01/24 22:11 20 MG Famotidine 20 mg DAILY IV 06/30/24 10:00 07/02/24 09:57 20 MG Apixaban 5 mg BID PO 06/29/24 22:00 07/02/24 09:57 5 MG Sodium Chloride 10 ml Q8HR IV 06/29/24 22:00 07/02/24 14:02 10 ML Acetaminophen/ Hydrocodone Bitart 1 tab Q4HP PRN PO 06/29/24 21:30 07/02/24 15:15 1 TAB Ondansetron HCl 4 mg Q4HP PRN IV 06/29/24 21:30 07/02/24 15:54 4 MG Docusate Sodium 100 mg BIDPRN PRN PO 06/29/24 21:30 Acetaminophen 650 mg Q6HP PRN PO 06/29/24 21:30 Morphine Sulfate 2 mg Q30M PRN IV 06/29/24 22:30 07/02/24 13:14 2 MG Dextrose 50 ml UD PRN IV 06/30/24 04:00 Diagnostic Test (Pha) 1 strip ACHS 06/30/24 17:00 07/02/24 11:30 1 STRIP Insulin Human Regular ACHS SC 06/30/24 17:00 Norepinephrine Bitartrate 250 ml @ 3.75 mls/hr Q24H IV 06/30/24 13:30 UNV Pantoprazole Sodium 40 mg DAILY@0600 PO 07/01/24 06:00 07/02/24 05:47 40 MG Levetiracetam 500 mg BID PO 06/30/24 22:00 07/02/24 09:57 500 MG Morphine Sulfate 2 mg Q4HPRN PRN IV 07/01/24 21:00 07/02/24 09:08 2 MG Bumetanide 2 mg BIDD PO 07/02/24 18:00 Examination: LUNGS:Normal, CVS:Normal, MSK:Normal laboratory and microbiology Laboratory Tests 07/02/24 04:02 07/01/24 03:49 Test 07/02/24 04:02 Range/Units Serum Glucose 76 74-106 mg/dL Problem List/Assessment/Plan Problem List/Assessment/Plan DAWNA superimposed on CKD secondary to hemodynamic mediated DKA - resolved CHF exacerbation A fib with RvR Morbid Obesity Anemia of CKD REC: Kidney function is improving Increased UOP Strict I&O's KCl replacement I agree with diuresis Check urine protein Cardiology consult Will follow Plan discussed with: Patient RASHEED KHAN MD Jul 02, 2024 16:22
--- NOTE | 2024-07-02 17:19 | DVHPN2 ---
Consult Progress Note Subjective Other Systems: The patient remains in atrial fibrillation on environmental monitoring specialist. Objective vital signs Vital Sign Date Time Temp Pulse Resp B/P (MAP) Pulse Ox O2 Delivery O2 Flow Rate FiO2 07/02/24 15:02 136 28 103/77 (86) 95 07/02/24 07:58 97.6 97.6 07/02/24 07:58 Nasal Cannula* 2 28 Total Intake and Output 07/01/24 07/01/24 07/02/24 15:00 23:00 07:00 Output Total 2250 ml 300 ml Balance -2250 ml -300 ml medications Current Medications Medications Dose Ordered Sig/Mickey Route Start Time Stop Time Status Last Admin Dose Admin Atorvastatin Calcium 20 mg HS PO 06/29/24 22:00 07/01/24 22:11 20 MG Famotidine 20 mg DAILY IV 06/30/24 10:00 07/02/24 09:57 20 MG Apixaban 5 mg BID PO 06/29/24 22:00 07/02/24 09:57 5 MG Sodium Chloride 10 ml Q8HR IV 06/29/24 22:00 07/02/24 14:02 10 ML Acetaminophen/ Hydrocodone Bitart 1 tab Q4HP PRN PO 06/29/24 21:30 07/02/24 15:15 1 TAB Ondansetron HCl 4 mg Q4HP PRN IV 06/29/24 21:30 07/02/24 15:54 4 MG Docusate Sodium 100 mg BIDPRN PRN PO 06/29/24 21:30 Acetaminophen 650 mg Q6HP PRN PO 06/29/24 21:30 Morphine Sulfate 2 mg Q30M PRN IV 06/29/24 22:30 07/02/24 13:14 2 MG Dextrose 50 ml UD PRN IV 06/30/24 04:00 Diagnostic Test (Pha) 1 strip ACHS 06/30/24 17:00 07/02/24 17:02 1 STRIP Insulin Human Regular ACHS SC 06/30/24 17:00 Norepinephrine Bitartrate 250 ml @ 3.75 mls/hr Q24H IV 06/30/24 13:30 UNV Pantoprazole Sodium 40 mg DAILY@0600 PO 07/01/24 06:00 07/02/24 05:47 40 MG Levetiracetam 500 mg BID PO 06/30/24 22:00 12/30/24 09:57 500 MG Morphine Sulfate 2 mg Q4HPRN PRN IV 07/01/24 21:00 07/02/24 09:08 2 MG Bumetanide 2 mg BIDD PO 07/02/24 18:00 Enteral Nutritional Formula 240 ml BIDWM PO 07/02/24 18:00 Examination: GENERAL:Abnormal (Generalized weakness), LUNGS:Normal, CVS:Normal, NEURO:Normal laboratory and microbiology Laboratory Tests 07/02/24 04:02 07/01/24 03:49 Test 07/02/24 04:02 Range/Units Serum Glucose 76 74-106 mg/dL Problem List/Assessment/Plan Problem List/Assessment/Plan Acute on chronic decompensated end-stage HFrEF, NYHA Class III 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 Davison): * Echocardiogram reveals EF 10% (on 03/31/24) * Strict intake and output, daily weights, maintain fluid restriction * Patient now off vasopressors, we will initiate GDMT for CHF with stable BP * [id number] VASc score: 3, HAS-BLED: 1 point * Continue NOAC therapy, Eliquis * Beta-alexx for rate control with optimal BP * Diuresis as tolerated Thank you for allowing us to care for this patient. Please call with any questions or concerns. This medical document was created using an electronic medical record system with voice recognition software and computerized dictation system. Although this document has been carefully reviewed, there might still be some phonetic and typographical errors. Occasional wrong-word or ``sound-alike substitutions may have occurred due to the inherent limitations of voice recognition software. These areas are purely typographical due to imperfections of the software programs and do not reflect any compromise in the patient's medical care. Please read the chart carefully and recognize, using context, where these substitutions have occurred. Plan discussed with: Patient Date of Service: Jul 02, 2024 Billing Provider: RISHI DAVISON MD Common Visit Codes: [id number] INP/OBS CARE(HIGH) KEVIN ARRIETA [facility] Jul 02, 2024 17:19
[2024-07-02] MEDS: Glucerna Carbsteady SHAKE Vanilla 8oz PO SCH (18:00)
[2024-07-02] MEDS: BUMETANIDE 1 MG TAB PO SCH (18:10)
[2024-07-02 19:30] VITALS: PULSE 120; RESP 20; O2SAT 97
[2024-07-03] VITALS (7 sets, daily range): BP systolic 107–136; BP diastolic 74–90; PULSE 61–130; RESP 18–22; TEMP 97.4–98.4; O2SAT 95–99
[2024-07-03 09:34] LABS: Hematocrit 29.5 % (41.0-53.0); Hemoglobin 9.2 g/dL (13.5-17.5); Mean Corpuscular Hemoglobin 25.1 pg (28.0-32.0); Mean Corpuscular Hgb Conc. 31.1 g/dL (32.0-36.0); Mean Corpuscular Volume 80.8 fL (80.0-100.0); Platelet Count (auto) 108 10^3/uL (140-450); Red Blood Cells 3.65 10^6/uL (4.5-5.90); Red Cell Distribution Width 25.6 % (11.8-14.3); White Blood Cell 4.1 10^3/uL (4.4-10.8)
[2024-07-03 09:39] LABS: Basophils % (manual) 0 (0.0-2.0); Blast Cells 0; Metamyelocytes % 0; Monocytes % (manual) 0 (0-12); Myelocytes % 0; Promyelocytes % 0; Reactive Lymphocytes 0
[2024-07-03 09:54] LABS: Alanine Aminotransferase 35 U/L (7-40); Albumin 3.3 g/dL (3.2-4.8); Anion Gap 10 (5-15); Blood Urea Nitrogen 23 mg/dL (9-23); Calcium 8.9 mg/dL (8.7-10.4); Carbon Dioxide 26 mmol/L (20-31); Glucose 97 mg/dL (74-106); Magnesium 1.9 mg/dL (1.6-2.6); Potassium 3.6 mmol/L (3.5-5.1); Total Protein 6.6 g/dL (5.7-8.2)
[2024-07-03 10:02] LABS: Alkaline Phosphatase 130 U/L (46-116); Aspartate Aminotransferase 68 U/L (13-40); Bilirubin, Total 2.1 mg/dL (0.2-1.0); Chloride 96 mmol/L (98-107); Sodium 132 mmol/L (136-145)
--- NOTE | 2024-07-03 10:38 | DVHPN2 ---
Subjective No new complaints See still has generalized edema Edema is better in the lower extremities on Bumex Changes from previous H/P or p: Changes Eyes: No Pain, No Vision change, No Conjunctivae inflammation, No Eyelid inflammation, No Other, No Redness ENT: No Ear pain, No Ear discharge, No Nose pain, No Nose discharge, No Nose congestion, No Mouth pain, No Mouth swelling, No Throat pain, No Throat swelling, No Other Cardiovascular: Chest Pain; No Palpitations, No Orthopnea, No Paroxysmal Noc. Dyspnea, No Edema, No Lt Headedness, No Other Respiratory: No Cough, No Dry; Shortness of breath; No SOB with excertion, No Wheezing, No Hemoptysis, No Pleuritic Pain, No Sputum, No Other Gastrointestinal: No Nausea, No Vomiting, No Abdominal Pain, No Diarrhea, No Constipation, No Melena, No Hematochezia, No Other Genitourinary: No Dysuria, No Frequency, No Incontinence, No Hematuria, No Retention, No Other Musculoskeletal: No other, No neck pain, No shoulder pain, No arm pain, No back pain, No hand pain, No leg pain, No foot pain Skin: No Rash, No Lesions, No Jaundice, No Bruising, No Other Objective Vitals Vital Signs Date Time Temp Pulse Resp B/P (MAP) Pulse Ox O2 Delivery O2 Flow Rate FiO2 07/03/24 09:45 103 18 109/67 07/03/24 09:00 97.4 96 97.4 07/03/24 03:12 Nasal Cannula* 3 32 Intake/Output Intake and Output 07/03/24 07:00 Intake Total 150 ml Balance 150 ml Intake Oral 150 ml General Appearance: Alert, Oriented X3, Cooperative, mild distress Lungs: Other (Bilateral rhonchi) Cardiovascular: Regular rate, Normal S1, Normal S2 Abdomen: Normal bowel sounds, Soft, No tenderness Extremities: Other (2+ edema in the left upper extremity and 1+ in all other extremities) Medications Current Medications Medications Dose Ordered Sig/Mickey Route Start Time Stop Time Status Last Admin Dose Admin Atorvastatin Calcium 20 mg HS PO 06/29/24 22:00 07/02/24 21:51 20 MG Famotidine 20 mg DAILY IV 06/30/24 10:00 07/03/24 10:02 20 MG Apixaban 5 mg BID PO 06/29/24 22:00 07/03/24 10:02 5 MG Sodium Chloride 10 ml Q8HR IV 06/29/24 22:00 07/03/24 05:59 10 ML Acetaminophen/ Hydrocodone Bitart 1 tab Q4HP PRN PO 06/29/24 21:30 07/02/24 21:07 1 TAB Ondansetron HCl 4 mg Q4HP PRN IV 06/29/24 21:30 07/03/24 03:37 4 MG Docusate Sodium 100 mg BIDPRN PRN PO 06/29/24 21:30 Acetaminophen 650 mg Q6HP PRN PO 06/29/24 21:30 Morphine Sulfate 2 mg Q30M PRN IV 06/29/24 22:30 07/03/24 09:15 2 MG Dextrose 50 ml UD PRN IV 06/30/24 04:00 Diagnostic Test (Pha) 1 strip ACHS 06/30/24 17:00 07/03/24 06:13 1 STRIP Insulin Human Regular ACHS SC 06/30/24 17:00 Norepinephrine Bitartrate 250 ml @ 3.75 mls/hr Q24H IV 06/30/24 13:30 UNV Pantoprazole Sodium 40 mg DAILY@0600 PO 07/01/24 06:00 07/03/24 05:59 40 MG Levetiracetam 500 mg BID PO 06/30/24 22:00 07/03/24 10:02 500 MG Morphine Sulfate 2 mg Q4HPRN PRN IV 07/01/24 21:00 07/03/24 03:33 2 MG Bumetanide 2 mg BIDD PO 07/02/24 18:00 07/03/24 05:59 2 MG Enteral Nutritional Formula 240 ml BIDWM PO 07/02/24 18:00 07/03/24 09:21 240 ML Laboratory Results Laboratory Tests 07/03/24 09:00 Chemistry Test 07/03/24 09:00 Albumin 3.3 g/dL (3.2-4.8) Calcium Level 8.9 mg/dL (8.7-10.4) Magnesium Level 1.9 mg/dL (1.6-2.6) Total Protein 6.6 g/dL (5.7-8.2) LFT Test 07/03/24 09:00 Alanine Aminotransferase (ALT) 35 U/L (7-40) Alkaline Phosphatase 130 U/L (46-116) H Aspartate Amino Transferase (AST) 68 U/L (13-40) H Total Bilirubin 2.1 mg/dL (0.2-1.0) H Urinalysis Test 06/29/24 20:30 06/30/24 21:42 Urine Color Yellow (Yellow) Urine Clarity Turbid (Clear) H Urine pH 5.5 (5.0-9.0) Urine Specific [place] 1.012 (1.001-1.035) Urine Protein 2+ (Negative) H Urine Ketones Trace (Negative) Urine Blood 1+ /uL (Negative) H Urine Nitrite Negative (Negative) Urine Bilirubin Negative (Negative) Urine Urobilinogen Normal mg/dL (Negative) Urine Leukocyte Esterase Negative /uL (Negative) Urine RBC 10 /hpf (0 - 3) Urine WBC 6 /hpf (0 - 3) Urine Squamous Epithelial Cells Few /hpf (<5) Urine Bacteria None seen /hpf (None Seen) Urine Glucose Normal mg/dL (Normal) Urine Creatinine 52.12 mg/dL (30.0-125.0) Urine Sodium 62 mmol/L (40-220) Assessment/Plan Assessment/Plan Acute diabetic ketoacidosis, resolved Acute kidney injury in a hemodynamically mediated due to vasomotor nephropathy Hyperkalemia, resolved Hypotension Nonischemic, drug induced cardiomyopathy Pulmonary edema Thrombocytopenia, rule out sepsis Anemia AFib History of seizures History of hypertension COPD Obesity Possible chronic kidney disease Plan Discontinue the IV fluids Continue IV Lasix Consult cardiology Echocardiogram Start Levophed IV drip for blood pressure support Accu-Cheks subcutaneously and sliding scale Monitor electrolytes closely Continue Keppra Continue Eliquis Hold Coreg for now Continue Lipitor [place] p.r.n. for pain Treating ICU Not stable for transfer Full code Advance directives discussed with the patient for more than 20 minutes 07/01/2024: Continue norepinephrine as needed Continue IV Lasix 40 mg twice a day Tapered down the Levophed as tolerated Continue Keppra p.o. Eliquis Full code 07/02/2024: Left upper extremity edema, rule out DVT: Get ultrasound Doppler Discontinue IV Lasix Start Bumex 2 mg p.o. twice a day Continue Eliquis He is off the norepinephrine Lipitor Keppra Stable for transfer Transfer to [place] once a bed is available 07/03/2024: Continue Bumex 2 mg p.o. twice a day Eliquis 5 mg twice a day Oxygen as needed Lipitor [place] Stable for transfer Plan discussed with: Patient My Orders Orders - MELISSA ONEAL MD Procedure Category Date Status Time Lt Upper Dvt US 07/02/24 Resulted 11:51 * Cost Recorder CONS 07/02/24 Transmitted Consult Bumetanide Tablet PHA 07/02/24 In Process (Bumex Tablet) 18:00 Complete Blood Count LAB 07/03/24 In Process 04:00 Discharge DISCHARGE 07/02/24 Transmitted 11:56 Nutritional PHA 07/02/24 In Process Supplements (Glucerna 18:00 Manual Differential LAB 07/03/24 In Process 09:00 Date of Service: Jul 03, 2024 Billing Provider: MELISSA ONEAL MD Common Visit Codes: [id number] INP/OBS CARE(HIGH) MELISSA ONEAL MD Jul 03, 2024 10:38
--- NOTE | 2024-07-03 12:36 | DVHPN2 ---
Progress Note Date Seen: Jul 03, 2024 Medical Necessity Reason Pt with a Central, PICC or Fol: No Subjective Patient reports: No new complaints Other Systems: Patient seen and examined by myself today in follow-up Objective vital signs Vital Sign Date Time Temp Pulse Resp B/P (MAP) Pulse Ox O2 Delivery O2 Flow Rate FiO2 07/03/24 09:45 103 18 109/67 07/03/24 09:00 97.4 96 97.4 07/03/24 03:12 Nasal Cannula* 3 32 Total Intake and Output 07/02/24 07/02/24 07/03/24 15:00 23:00 07:00 Intake Total 150 ml Balance 150 ml medications Current Medications Medications Dose Ordered Sig/Mickey Route Start Time Stop Time Status Last Admin Dose Admin Atorvastatin Calcium 20 mg HS PO 06/29/24 22:00 07/02/24 21:51 20 MG Famotidine 20 mg DAILY IV 06/30/24 10:00 07/03/24 10:02 20 MG Apixaban 5 mg BID PO 06/29/24 22:00 07/03/24 10:02 5 MG Sodium Chloride 10 ml Q8HR IV 06/29/24 22:00 07/03/24 05:59 10 ML Acetaminophen/ Hydrocodone Bitart 1 tab Q4HP PRN PO 06/29/24 21:30 07/02/24 21:07 1 TAB Ondansetron HCl 4 mg Q4HP PRN IV 06/29/24 21:30 07/03/24 03:37 4 MG Docusate Sodium 100 mg BIDPRN PRN PO 06/29/24 21:30 Acetaminophen 650 mg Q6HP PRN PO 06/29/24 21:30 Morphine Sulfate 2 mg Q30M PRN IV 06/29/24 22:30 07/03/24 09:15 2 MG Dextrose 50 ml UD PRN IV 06/30/24 04:00 Diagnostic Test (Pha) 1 strip ACHS 06/30/24 17:00 07/03/24 06:13 1 STRIP Insulin Human Regular ACHS SC 06/30/24 17:00 Norepinephrine Bitartrate 250 ml @ 3.75 mls/hr Q24H IV 06/30/24 13:30 UNV Pantoprazole Sodium 40 mg DAILY@0600 PO 07/01/24 06:00 07/03/24 05:59 40 MG Levetiracetam 500 mg BID PO 06/30/24 22:00 07/03/24 10:02 500 MG Morphine Sulfate 2 mg Q4HPRN PRN IV 07/01/24 21:00 07/03/24 03:33 2 MG Bumetanide 2 mg BIDD PO 07/02/24 18:00 07/03/24 05:59 2 MG Enteral Nutritional Formula 240 ml BIDWM PO 07/02/24 18:00 07/03/24 09:21 240 ML Examination: LUNGS:Normal, CVS:Normal, MSK:Normal laboratory and microbiology Laboratory Tests 07/03/24 09:00 Test 07/03/24 09:00 Range/Units Serum Glucose 97 74-106 mg/dL Problem List/Assessment/Plan Problem List/Assessment/Plan DAWNA superimposed on CKD secondary to hemodynamic mediated DKA - resolved CHF exacerbation A fib with RvR Morbid Obesity Anemia of CKD REC: Kidney function resolved back to normal Increased UOP Strict I&O's KCl replacement I agree with diuresis Cardiology consult I will sign off this case, please refer to my office two weeks after discharge for Chronic Kidney Disease follow-up Thank you for the consult Plan discussed with: Patient RASHEED KHAN MD Jul 03, 2024 12:35
[2024-07-03 12:46] LABS: Band Neutrophils % (manual) 1; Eosinophils % (manual) 1 (0-7); Lymphocytes % (manual) 27 (10.0-50.0); Smudge Cells 7 /100 WBC
[2024-07-03 12:47] LABS: Platelet Estimate Decreased
[2024-07-03 12:48] LABS: Anisocytosis Moderate
[2024-07-03 12:50] LABS: Ovalocytes FEW
[2024-07-03 12:52] LABS: Stomatocytes Mode
--- NOTE | 2024-07-03 13:04 | ECG ---
[facility] Test Date: 2024-07-02 Test Time: 12:56:14 Pat Name: GENET ALVAREZ Department: er Room: [facility]6T B Gender: M Neuro Urologist: filemon : 1995 Requested By: JULIAN MAY Order Number: [id number] Reading MD: Manuel Kuhn Measurements Intervals Carey Rate: 120 P: 0 MT: 0 QRS: 145 QRSD: 136 T: -11 QT: 385 QTc: 544 Interpretive Statements Atrial fibrillation Nonspecific intraventricular conduction delay Consider anterior infarct Borderline repol abnrm, inferolateral leads Electronically Signed On 07-03-2024 17:55:45 PST by Manuel Kuhn Please click the below link to view image of tracing.
--- NOTE | 2024-07-03 14:19 | DVHPN2 ---
Consult Progress Note Subjective Other Systems: Patient remains in atrial fibrillation with controlled rate on panel monitor. Objective vital signs Vital Sign Date Time Temp Pulse Resp B/P (MAP) Pulse Ox O2 Delivery O2 Flow Rate FiO2 07/03/24 13:23 89 18 118/58 07/03/24 13:00 97.6 96 97.6 07/03/24 03:12 Nasal Cannula* 3 32 Total Intake and Output 07/02/24 07/02/24 07/03/24 15:00 23:00 07:00 Intake Total 150 ml Balance 150 ml medications Current Medications Medications Dose Ordered Sig/Mickey Route Start Time Stop Time Status Last Admin Dose Admin Atorvastatin Calcium 20 mg HS PO 06/29/24 22:00 07/02/24 21:51 20 MG Famotidine 20 mg DAILY IV 06/30/24 10:00 07/03/24 10:02 20 MG Apixaban 5 mg BID PO 06/29/24 22:00 07/03/24 10:02 5 MG Sodium Chloride 10 ml Q8HR IV 06/29/24 22:00 07/03/24 13:23 10 ML Acetaminophen/ Hydrocodone Bitart 1 tab Q4HP PRN PO 06/29/24 21:30 07/02/24 21:07 1 TAB Ondansetron HCl 4 mg Q4HP PRN IV 06/29/24 21:30 07/03/24 03:37 4 MG Docusate Sodium 100 mg BIDPRN PRN PO 06/29/24 21:30 Acetaminophen 650 mg Q6HP PRN PO 06/29/24 21:30 Morphine Sulfate 2 mg Q30M PRN IV 06/29/24 22:30 07/03/24 13:23 2 MG Dextrose 50 ml UD PRN IV 06/30/24 04:00 Diagnostic Test (Pha) 1 strip ACHS 06/30/24 17:00 07/03/24 12:46 1 STRIP Insulin Human Regular ACHS SC 06/30/24 17:00 Norepinephrine Bitartrate 250 ml @ 3.75 mls/hr Q24H IV 06/30/24 13:30 UNV Pantoprazole Sodium 40 mg DAILY@0600 PO 07/01/24 06:00 07/03/24 05:59 40 MG Levetiracetam 500 mg BID PO 06/30/24 22:00 07/03/24 10:02 500 MG Morphine Sulfate 2 mg Q4HPRN PRN IV 07/01/24 21:00 07/03/24 03:33 2 MG Bumetanide 2 mg BIDD PO 07/02/24 18:00 07/03/24 05:59 2 MG Enteral Nutritional Formula 240 ml BIDWM PO 07/02/24 18:00 07/03/24 09:21 240 ML Examination: GENERAL:Normal, LUNGS:Normal, CVS:Normal, NEURO:Normal laboratory and microbiology Laboratory Tests 07/03/24 09:00 Test 07/03/24 09:00 Range/Units Serum Glucose 97 74-106 mg/dL Problem List/Assessment/Plan Problem List/Assessment/Plan Acute on chronic decompensated end-stage HFrEF, NYHA Class III 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 Davison): * Echocardiogram reveals EF 10% (on 03/31/24) * Strict intake and output, daily weights, maintain fluid restriction * Initiate GDMT for CHF as tolerated by BP * Start with home dose lisinopril * 07/03/24: Adding low dose beta-alexx to see if tolerated * [id number] VASc score: 3, HAS-BLED: 1 point * Continue NOAC therapy, Eliquis * Beta-alexx for rate control * Diuresis as tolerated Patient seen and examined at bedside with . Thank you for allowing us to care for this patient. Please call with any questions or concerns. This medical document was created using an electronic medical record system with voice recognition software and computerized dictation system. Although this document has been carefully reviewed, there might still be some phonetic and typographical errors. Occasional wrong-word or ``sound-alike substitutions may have occurred due to the inherent limitations of voice recognition software. These areas are purely typographical due to imperfections of the software programs and do not reflect any compromise in the patient's medical care. Please read the chart carefully and recognize, using context, where these substitutions have occurred. Plan discussed with: Patient Date of Service: Jul 03, 2024 Billing Provider: RISHI DAVISON MD Common Visit Codes: [id number] INP/OBS CARE(HIGH) KEVIN ARRIETA [facility] Jul 03, 2024 14:19
[2024-07-03] MEDS: METOPROLOL TARTRATE 25 MG TAB PO SCH (21:22)
[2024-07-04] VITALS (8 sets, daily range): BP systolic 102–137; BP diastolic 68–101; PULSE 56–112; RESP 17–20; TEMP 97.5–98.5; O2SAT 95–100
[2024-07-04] MEDS: NALOXONE HCL 0.4 MG/ML VIAL IM ONE (04:53)
[2024-07-04] MEDS: NALOXONE HCL 0.4 MG/ML VIAL ONE (05:07)
[2024-07-04] MEDS ORDERED: ACETAMINOPHEN 325 MG TAB PO PRN (05:15)
[2024-07-04] MEDS: DEXTROSE (50%) 50ML SYRG IV PRN (05:30)
--- NOTE | 2024-07-04 07:20 | RESUS ---
CODE ASSIST ASSESSSMENT Initial Information Code Assist Date: Jul 04, 2024 Code Assist Time: 04:41 Location of Arrest: [facility] Provider Name AMARIS Time Notified: 04:41 Time PMD returned call: 04:41 Crash Cart Opened and Supplies: No Situation Staff concerned/worried, speci: Change LOC Situation comment: PT FOUND UNRESPONSIVE DURING ROUNDS, PT HAD MORPHINE EARLIER. Background Background: 28y M admitted on 06/29 after presenting to the ED via EMS for chief complaint of hypoglycemia. Pt presents to the ED with blood sugar of 12 and pt is noted to be drowsy. EMS states they were called out originally due to chest pain and shortness of breath. Pt in the ED, otherwise drowsy but able to answer questions. Pt otherwise per prior notes been to [facility] for CHF exacerbation multiple times and is noted to be noncompliant with his medications. EMS gave pt glucagon prior to ED arrival. pt was in icu downgrated to telemetry. Assessment Temperature (Fahrenheit): 97.6 Blood Pressure Systolic: 147 Blood Pressure Diastolic: 87 Respiratory Rate: 20 O2 Sat by Pulse Oximetry: 99 Bedside Blood Glucose: 69 Assessment comment: Pt aaox4 moving all extremeties asking for a drink, giving juice. Recommendations/Interventions Medications and Responses : Medication Time: 04:46 ADULT Medications Given: Narcan 0.4 mg IVP MRx1 Route of Administration: IO Heart Rate: 110 EKG Rhythm: Sinus Tachycardia Blood Pressure Systolic: 147 Blood Pressure Diastolic: 87 Respiratory Rate: 22 O2 Sat by Pulse Oximetry: 99 Procedures: Accu check Outcome Outcome: Problem Resolved Team Members Team Members CAROLINE SIU RN HS, NAOMIE MASON RN, LORRAINE RT, JUAN M RT critical care time 38 mins Date of Service: Jul 04, 2024 Billing Provider: JUANY FOREMAN MD Common Visit Codes: [id number] CARE 30-74 MIN CAROLINE FISH Jul 04, 2024 07:20 JUANY FOREMAN MD Jul 04, 2024 08:42
[2024-07-04 08:35] LABS: Alanine Aminotransferase 40 U/L (7-40); Albumin 3.5 g/dL (3.2-4.8); Anion Gap 20 (5-15); BUN/Creatinine Ratio 16.8 (10.0-20.0); Calcium 9.5 mg/dL (8.7-10.4); Potassium 4.2 mmol/L (3.5-5.1); Total Protein 7.1 g/dL (5.7-8.2)
[2024-07-04 08:36] LABS: Alkaline Phosphatase 149 U/L (46-116); Aspartate Aminotransferase 74 U/L (13-40); Blood Urea Nitrogen 31 mg/dL (9-23); Carbon Dioxide 17 mmol/L (20-31); Chloride 95 mmol/L (98-107); Glucose 109 mg/dL (74-106); Sodium 132 mmol/L (136-145)
[2024-07-04] MEDS: LISINOPRIL 5 MG TAB PO SCH (10:00)
--- NOTE | 2024-07-04 14:22 | DVHPN2 ---
Subjective Patient was somewhat encephalopathic. Reviewed: Care Plan, H&P, Labs, Medications Changes from previous H/P or p: No Changes General: Per HPI Eyes: No Pain, No Vision change, No Conjunctivae inflammation, No Eyelid inflammation, No Other, No Redness ENT: No Ear pain, No Ear discharge, No Nose pain, No Nose discharge, No Nose congestion, No Mouth pain, No Mouth swelling, No Throat pain, No Throat swelling, No Other Cardiovascular: Chest Pain; No Palpitations, No Orthopnea, No Paroxysmal Noc. Dyspnea, No Edema, No Lt Headedness, No Other Respiratory: No Cough, No Dry; Shortness of breath; No SOB with excertion, No Wheezing, No Hemoptysis, No Pleuritic Pain, No Sputum, No Other Gastrointestinal: No Nausea, No Vomiting, No Abdominal Pain, No Diarrhea, No Constipation, No Melena, No Hematochezia, No Other Genitourinary: No Dysuria, No Frequency, No Incontinence, No Hematuria, No Retention, No Other Musculoskeletal: No other, No neck pain, No shoulder pain, No arm pain, No back pain, No hand pain, No leg pain, No foot pain Skin: No Rash, No Lesions, No Jaundice, No Bruising, No Other Objective Vitals Vital Signs Date Time Temp Pulse Resp B/P (MAP) Pulse Ox O2 Delivery O2 Flow Rate FiO2 07/04/24 13:00 98.4 95 20 102/75 (84) 95 98.4 07/04/24 08:00 Nasal Cannula* 3 32 Intake/Output Intake and Output 07/04/24 07:00 Intake Total 1700 ml Output Total 1175 ml Balance 525 ml Intake Oral 1700 ml Output Urine Total 1175 ml General Appearance: Alert, Oriented X3, Cooperative, mild distress HEENT: Atraumatic, PERRLA Lungs: Other (Tachypneic) Cardiovascular: Regular rate, Normal S1, Normal S2 Abdomen: Normal bowel sounds, Soft, No tenderness Musculoskeletal: Normal sensory function, Normal motor function Extremities: Other (2+ edema in the left upper extremity and 1+ in all other extremities) Psych/Mental Status: Mental status NL, Mood NL Medications Current Medications Medications Dose Ordered Sig/Mickey Route Start Time Stop Time Status Last Admin Dose Admin Atorvastatin Calcium 20 mg HS PO 06/29/24 22:00 07/03/24 21:19 20 MG Famotidine 20 mg DAILY IV 06/30/24 10:00 07/04/24 10:43 20 MG Apixaban 5 mg BID PO 06/29/24 22:00 07/04/24 10:43 5 MG Sodium Chloride 10 ml Q8HR IV 06/29/24 22:00 07/04/24 13:40 10 ML Ondansetron HCl 4 mg Q4HP PRN IV 06/29/24 21:30 07/04/24 03:13 4 MG Docusate Sodium 100 mg BIDPRN PRN PO 06/29/24 21:30 Acetaminophen 650 mg Q6HP PRN PO 06/29/24 21:30 Dextrose 50 ml UD PRN IV 06/30/24 04:00 07/04/24 05:30 50 ML Diagnostic Test (Pha) 1 strip ACHS 06/30/24 17:00 07/04/24 12:06 1 STRIP Insulin Human Regular ACHS SC 06/30/24 17:00 07/04/24 12:14 3 UNITS Norepinephrine Bitartrate 250 ml @ 3.75 mls/hr Q24H IV 06/30/24 13:30 UNV Pantoprazole Sodium 40 mg DAILY@0600 PO 07/01/24 06:00 07/03/24 05:59 40 MG Levetiracetam 500 mg BID PO 06/30/24 22:00 07/04/24 10:43 500 MG Morphine Sulfate 2 mg Q4HPRN PRN IV 07/01/24 21:00 07/04/24 11:55 2 MG Bumetanide 2 mg BIDD PO 07/02/24 18:00 07/03/24 18:19 2 MG Enteral Nutritional Formula 240 ml BIDWM PO 07/02/24 18:00 07/04/24 10:46 240 ML Lisinopril 2.5 mg DAILY PO 07/04/24 10:00 Metoprolol Tartrate 12.5 mg BID PO 07/03/24 22:00 07/04/24 10:44 12.5 MG Ketorolac Tromethamine 15 mg Q6HPRN PRN IV 07/04/24 05:15 07/09/24 05:14 UNV Acetaminophen 650 mg Q6HP PRN PO 07/04/24 05:15 UNV Laboratory Results Laboratory Tests 07/03/24 09:00 07/04/24 07:37 Chemistry Test 07/04/24 07:37 Albumin 3.5 g/dL (3.2-4.8) Calcium Level 9.5 mg/dL (8.7-10.4) Total Protein 7.1 g/dL (5.7-8.2) LFT Test 07/04/24 07:37 Alanine Aminotransferase (ALT) 40 U/L (7-40) Alkaline Phosphatase 149 U/L (46-116) H Aspartate Amino Transferase (AST) 74 U/L (13-40) H Total Bilirubin 3.0 mg/dL (0.2-1.0) H Urinalysis Test 06/29/24 20:30 06/30/24 21:42 Urine Color Yellow (Yellow) Urine Clarity Turbid (Clear) H Urine pH 5.5 (5.0-9.0) Urine Specific [place] 1.012 (1.001-1.035) Urine Protein 2+ (Negative) H Urine Ketones Trace (Negative) Urine Blood 1+ /uL (Negative) H Urine Nitrite Negative (Negative) Urine Bilirubin Negative (Negative) Urine Urobilinogen Normal mg/dL (Negative) Urine Leukocyte Esterase Negative /uL (Negative) Urine RBC 10 /hpf (0 - 3) Urine WBC 6 /hpf (0 - 3) Urine Squamous Epithelial Cells Few /hpf (<5) Urine Bacteria None seen /hpf (None Seen) Urine Glucose Normal mg/dL (Normal) Urine Creatinine 52.12 mg/dL (30.0-125.0) Urine Sodium 62 mmol/L (40-220) Labs and/or images reviewed: Labs reviewed by me, Image(s) reviewed by me Assessment/Plan Assessment/Plan Impression: -diabetic ketoacidosis -hyperkalemia -acute kidney injury, vasomotor nephropathy, probable cardiorenal failure -nonischemic drug-induced cardiomyopathy -acute hypoxic respiratory failure -thrombocytopenia -anemia of chronic disease -atrial fibrillation -primary hypertension -pulmonary edema Plan: -patient had code assist this a.m., requiring Narcan. Patient was stable to transfer given patient continues to be tachypneic, tachycardic. -continue goal-directed medical therapy with diuresis -continue Eliquis -O2 supplementation to keep saturation greater than 92% -increase metoprolol to 25 mg p.o. b.i.d. -reassess in a.m. for stability to transfer to [facility]. -chest x-ray Total time spent with patient discussing and formulating plan of care: 35 minutes. This medical document was created using an electronic medical record system with [employer] dictation system. Although this document has been carefully reviewed, there may still be some phonetic and typographical errors. These areas are purely typographical due to imperfections of the software programs, and do not reflect any compromise in the patient's medical care. Plan discussed with: Patient, Other (RN) Date of Service: Jul 04, 2024 Billing Provider: JASSON CLEVELAND NP Common Visit Codes: [id number] INP/OBS CARE(HIGH) JASSON CLEVELAND NP Jul 04, 2024 14:22
--- NOTE | 2024-07-04 15:22 | ECG ---
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
--- NOTE | 2024-07-04 15:22 | ECG ---
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
--- NOTE | 2024-07-04 17:07 | DVH ---
EXAM: XY CHEST XRAY 1 VIEW TECHNIQUE: Single frontal chest radiograph CLINICAL HISTORY: chf COMPARISON: XY CHEST PORTABLE on DOS: 06/29/24, XY CHEST PORTABLE on DOS: 06/16/24, XY CHEST PORTABLE on DOS: 05/17/24 Findings/Impression: Frontal chest radiograph demonstrates no acute osseous or superficial soft tissue abnormalities. The trachea is midline. Cardiomegaly, similar to prior. No pneumothorax, pleural effusions, or consolidations.
[2024-07-04] MEDS: KETOROLAC TROMETH 30 MG/ML 1ML VIAL IV PRN (21:07)
[2024-07-04] MEDS: METOPROLOL TARTRATE 25 MG TAB PO SCH (21:47)
[2024-07-05] VITALS (8 sets, daily range): BP systolic 90–138; BP diastolic 65–83; PULSE 40–103; RESP 17–22; TEMP 97.8–98.6; O2SAT 90–100
[2024-07-05] MEDS: ACETAMINOPHEN 325 MG TAB PO PRN (10:25)
--- NOTE | 2024-07-05 12:06 | DVHDS2 ---
Discharge Summary Date of Admission Jun 29, 2024 at 22:22 Date of Discharge: Jul 05, 2024 Admitting Diagnosis Diabetic ketoacidosis Labs/Diagnostic Data: Laboratory Results Test 07/05/24 05:48 07/04/24 07:37 07/03/24 09:00 07/01/24 03:49 POC Glucose 96 mg/dl (70-106) Sodium Level 132 mmol/L (136-145) Potassium Level 4.2 mmol/L (3.5-5.1) Chloride Level 95 mmol/L (98-107) Carbon Dioxide Level 17 mmol/L (20-31) Anion Gap 20 (5-15) Blood Urea Nitrogen 31 mg/dL (9-23) Creatinine 1.84 mg/dL (0.700-1.30) Glomerular Filtration Rate Calc 50 mL/min (>90) BUN/Creatinine Ratio 16.8 (10.0-20.0) Serum Glucose 109 mg/dL (74-106) Calcium Level 9.5 mg/dL (8.7-10.4) Total Bilirubin 3.0 mg/dL (0.2-1.0) Aspartate Amino Transferase (AST) 74 U/L (13-40) Alanine Aminotransferase (ALT) 40 U/L (7-40) Alkaline Phosphatase 149 U/L (46-116) Ammonia 83 umol/L (11-32) Total Protein 7.1 g/dL (5.7-8.2) Albumin 3.5 g/dL (3.2-4.8) White Blood Count 4.1 10^3/uL (4.4-10.8) Red Blood Count 3.65 10^6/uL (4.5-5.90) Hemoglobin 9.2 g/dL (13.5-17.5) Hematocrit 29.5 % (41.0-53.0) Mean Corpuscular Volume 80.8 fL (80.0-100.0) Mean Corpuscular Hemoglobin 25.1 pg (28.0-32.0) Mean Corpuscular Hemoglobin Concent 31.1 g/dL (32.0-36.0) Red Cell Distribution Width 25.6 % (11.8-14.3) Platelet Count 108 10^3/uL (140-450) Mean Platelet Volume 7.8 fL (6.9-10.8) Neutrophils (%) (Auto) % (37.0-80.0) Lymphocytes (%) (Auto) % (10.0-50.0) Monocytes (%) (Auto) % (0.0-12.0) Basophils (%) (Auto) % (0.0-2.0) Neutrophils # (Auto) 10 ^3/uL (1.6-8.6) Lymphocytes # (Auto) 10 ^3/uL (0.4-5.4) Monocytes # (Auto) 10 ^3/uL (0-1.3) Differential Total Cells Counted 87.0 (100) Neutrophils % (Manual) 58 (37.0-80.0) Band Neutrophils % (Manual) 1 Lymphocytes % (Manual) 27 (10.0-50.0) Monocytes % (Manual) 0 (0-12) Eosinophils % (Manual) 1 (0-7) Basophils % (Manual) 0 (0.0-2.0) Metamyelocytes % (manual) 0 Myelocytes % (Manual) 0 Promyelocytes % (Manual) 0 Blast Cells % (Manual) 0 Reactive Lymphocytes 0 Smudge Cells 7 /100 WBC Platelet Estimate Decreased Clumped Platelets Many Anisocytosis (manual) Moderate Ovalocytes Few Stomatocytes Mode Magnesium Level 1.9 mg/dL (1.6-2.6) Eosinophils (%) (Auto) 1.0 % (0.0-7.0) Eosinophils # (Auto) 0.1 10 ^3/uL (0-0.8) Basophils # (Auto) 0 10 ^3/uL (0-0.2) Nucleated Red Blood Cells 0.2 % Hypochromasia (manual) Moderate [place] Cells Few Triglycerides Level 93 mg/dL (< 150) Cholesterol Level 89 mg/dL (< 200) LDL Cholesterol 61 mg/dL (< 100) HDL Cholesterol 13 mg/dL (40-59) Test 06/30/24 21:42 06/30/24 00:18 06/29/24 21:55 06/29/24 20:52 Urine Creatinine 52.12 mg/dL (30.0-125.0) Urine Sodium 62 mmol/L (40-220) Phosphorus Level 6.4 mg/dL (2.4-5.1) B-Type Natriuretic Peptide 3165.08 pg/mL (0-100) Serum Osmolality 321 mOsm/kg (278-298) Salicylates Level < 3.0 mg/dL (-30) Test 06/29/24 20:37 06/29/24 20:34 06/29/24 20:30 06/29/24 18:44 Blood Gas Specimen Type Arterial Blood Gas Sample Site Right radial Blood Gas Patient Temperature 37.0 Arterial Blood Date Drawn [id number] Arterial Blood pH 7.215 (7.350-7.450) Arterial Blood Partial Pressure CO2 17.5 mmHg (35.0-48.0) Arterial Blood Partial Pressure O2 132.0 mmHg (83.0-108.0) Arterial Blood HCO3 6.9 mmol/L (21.0-28.0) Arterial Blood Oxygen Saturation 98.2 % (94.0-98.0) Arterial Blood Base Excess -18.8 mmol/L (-2.0-3.0) Arterial Blood Oxyhemoglobin 96.9 % (94.0-98.0) Arterial Blood Carboxyhemoglobin 0.6 % (0.5-1.5) Arterial Blood Methemoglobin 0.7 % (0.0-1.5) Clement Test Yes Blood Gas Total Hemoglobin 10.90 g/dL (13.5-17.5) Blood Gas Liter Flow 3.00 Blood Gas Modality Nasal cannula FiO2 % 32.0 Blood Gas Critical Value Read Back Yes Blood Gas Notified Whom Dr. joseph Blood Gas Notified Time [id number] Blood Gas Notified By Career Placement Specialist ruben nicolas Troponin I High Sensitivity 48 ng/L (</=54) Plasma/Serum Blood Alcohol < 3.0 mg/dL (<10) Urine Color Yellow (Yellow) Urine Clarity Turbid (Clear) Urine pH 5.5 (5.0-9.0) Urine Specific [place] 1.012 (1.001-1.035) Urine Protein 2+ (Negative) Urine Ketones Trace (Negative) Urine Blood 1+ /uL (Negative) Urine Nitrite Negative (Negative) Urine Bilirubin Negative (Negative) Urine Urobilinogen Normal mg/dL (Negative) Urine Leukocyte Esterase Negative /uL (Negative) Urine RBC 10 /hpf (0 - 3) Urine WBC 6 /hpf (0 - 3) Urine Squamous Epithelial Cells Few /hpf (<5) Urine Bacteria None seen /hpf (None Seen) Urine Glucose Normal mg/dL (Normal) Urine Opiates Screen Pos (NEGATIVE) Urine Fentanyl Screen Neg (NEGATIVE) Urine Barbiturates Screen Neg (NEGATIVE) Urine Phencyclidine Screen Neg (NEGATIVE) Urine Amphetamines Screen Neg (NEGATIVE) Urine Benzodiazepines Screen Neg (NEGATIVE) Urine Cocaine Screen Neg (NEGATIVE) Urine Cannabinoids Screen Pos (NEGATIVE) Beta-Hydroxybutyric Acid 0.328 mmol/L (< 0.4) Other Laboratory Tests 07/04/24 07:37 07/03/24 09:00 Brief Hx & Hospital Course: History of Present Illness The patient is a 28-year-old female with multiple past medical history including CHF, AFib, COPD, CVA, and seizures presented to [facility] ED for evaluation of hyperglycemia. Patient reports symptoms progressively get worse with shortness of breath, drowsy, chest pain, getting worse that prompted this visit. Patient was seen evaluated in the ED, laboratory data shows WBC 11.3, hemoglobin 9.5, hematocrit 35.8, platelets 337, sodium 139, potassium 4.7, BUN 25, creatinine 2.35, GFR 35, glucose of 12 trending up to 133, anion gap 29.00, BNP 3165.08, protein 8.7, troponin 48, AST 73, ALT 32, total bilirubin 3.0, blood pressure 116/76, heart rate 106, temperature 96.9 F, O2 saturation 99% on oxygen. Chest x-ray revealing cardiomegaly and mild congestion; extremity venous study showed no evidence of left upper extremity deep venous thrombosis. Patient was started on insulin drip, please see medication orders section in the computer. On my assessment, patient denied chest pain, no headache, no dizziness, no diaphoresis, no diarrhea no nausea, no vomiting, no fever, no chills. Patient was admitted for further evaluation and medical management. Course of hospitalization: Patient was treated with insulin drip, transitioned to regular insulin sliding scale as well as long-acting insulin. IV hydration was kept at a minimum, given the patient has not ejection fraction of 10%. Cardiology consultation was obtained for management of the patient's acute on chronic systolic heart failure, as well as his atrial fibrillation. Patient was started on beta- alexx therapy, with the patient noted to have periods of bradycardia with the atrial fibrillation. Patient also had an issue with altered mental status with IV morphine, with the patient requiring reversal agent, Narcan, with the patient's mentation improving. Long discussion was made with the patient regarding plan of care for his heart failure. Patient should be evaluated by [place] sales route driver helper for possible ICD placement. He was agreeable to this plan. Patient was now stable to transfer to [facility]. Physical examination General: Alert and Oriented x3. No acute distress. Well-nourished. Obese Eyes: EOMI. Anicteric. HENT: Moist mucous membranes. Lungs: Clear to auscultation bilaterally. No accessory muscle use. Cardiovascular: Atrial fibrillation. No murmur. No JVD. Abdomen: Soft, non-tender and non-distended. No palpable masses. Extremities: No edema. Non-tender. Skin: No rashes or lesions. Warm. Neurologic: No focal neurological deficits. CN II-XII grossly intact, but not individually tested. Psychiatric: Cooperative. Appropriate mood and affect. Total time spent with patient discussing and formulating plan of care: 35 minutes. This medical document was created using an electronic medical record system with [employer] dictation system. Although this document has been carefully reviewed, there may still be some phonetic and typographical errors. These areas are purely typographical due to imperfections of the software programs, and do not reflect any compromise in the patient's medical care. Consults/Reason for consult Cardiology: Atrial fibrillation Condition at Discharge: Poor Final Diagnosis/Problems List Acute diabetic ketoacidosis, resolved Acute kidney injury in a hemodynamically mediated due to vasomotor nephropathy, improved Hyperkalemia, resolved Hypotension Nonischemic, drug induced cardiomyopathy Pulmonary edema Thrombocytopenia, rule out sepsis Anemia AFib History of seizures History of hypertension COPD Obesity Possible chronic kidney disease Discharge Disposition: Acute Care Facility Discharge Instruct/Medications Diet: Cardiac 2g Na,low cholest Activity: Light activity Follow Up/Referral: [place] hospitalist Medications: See the med rec 36 Discharge Statement: "Patient was advised to return to the ER or call 911 if any headaches, dizziness, shortness of breath, chest pain, abdominal pain, bleeding, fevers, or worsening of medical condition. Patient was counseled about treatment plan, medications, possible side effects, patientverbalized understanding. All questions were answered to the best of my ability. This discharge took greater then 30 minutes in planning, reviewing documentation, counseling the patient, and discussing with other team members." ASSESSMENT ASSESSMENT Assessment Acute diabetic ketoacidosis, resolved Acute kidney injury in a hemodynamically mediated due to vasomotor nephropathy, improved Hyperkalemia, resolved Hypotension Nonischemic, drug induced cardiomyopathy Pulmonary edema Thrombocytopenia, rule out sepsis Anemia AFib History of seizures History of hypertension COPD Obesity Possible chronic kidney disease Date of Service: Jul 05, 2024 Billing Provider: JASSON CLEVELAND NP Common Visit Codes: [id number] DISCH DAY >30min JASSON CLEVELAND NP Jul 05, 2024 12:06
--- NOTE | 2024-07-05 12:36 | DVHPN2 ---
Consult Progress Note Subjective Other Systems: Patient remains in atrial fibrillation with controlled rate Objective vital signs Vital Sign Date Time Temp Pulse Resp B/P (MAP) Pulse Ox O2 Delivery O2 Flow Rate FiO2 07/05/24 11:23 116/73 07/05/24 10:00 59 07/05/24 08:00 18 96 07/05/24 05:00 98.5 98.5 07/04/24 20:00 Nasal Cannula* 3 32 Total Intake and Output 07/04/24 07/04/24 07/05/24 15:00 23:00 07:00 Intake Total 440 ml 918 ml 350 ml Output Total 550 ml 200 ml Balance 440 ml 368 ml 150 ml medications Current Medications Medications Dose Ordered Sig/Mickey Route Start Time Stop Time Status Last Admin Dose Admin Atorvastatin Calcium 20 mg HS PO 06/29/24 22:00 07/04/24 21:48 20 MG Famotidine 20 mg DAILY IV 06/30/24 10:00 07/05/24 10:11 20 MG Apixaban 5 mg BID PO 06/29/24 22:00 07/05/24 10:11 5 MG Sodium Chloride 10 ml Q8HR IV 06/29/24 22:00 07/05/24 06:11 10 ML Ondansetron HCl 4 mg Q4HP PRN IV 06/29/24 21:30 07/04/24 03:13 4 MG Docusate Sodium 100 mg BIDPRN PRN PO 06/29/24 21:30 Acetaminophen 650 mg Q6HP PRN PO 06/29/24 21:30 07/05/24 10:25 650 MG Dextrose 50 ml UD PRN IV 06/30/24 04:00 07/04/24 05:30 50 ML Diagnostic Test (Pha) 1 strip ACHS 06/30/24 17:00 07/05/24 12:33 1 STRIP Insulin Human Regular ACHS SC 06/30/24 17:00 07/04/24 12:14 3 UNITS Norepinephrine Bitartrate 250 ml @ 3.75 mls/hr Q24H IV 06/30/24 13:30 UNV Pantoprazole Sodium 40 mg DAILY@0600 PO 07/01/24 06:00 07/05/24 06:11 40 MG Levetiracetam 500 mg BID PO 06/30/24 22:00 07/05/24 10:11 500 MG Morphine Sulfate 2 mg Q4HPRN PRN IV 07/01/24 21:00 Hold 07/04/24 11:55 2 MG Bumetanide 2 mg BIDD PO 07/02/24 18:00 07/05/24 06:13 2 MG Enteral Nutritional Formula 240 ml BIDWM PO 07/02/24 18:00 07/05/24 08:34 240 ML Lisinopril 2.5 mg DAILY PO 07/04/24 10:00 07/05/24 11:23 2.5 MG Ketorolac Tromethamine 15 mg Q6HPRN PRN IV 07/04/24 05:15 07/09/24 05:14 07/04/24 21:07 15 MG Tramadol HCl 50 mg BID PRN PO 07/05/24 10:30 Metoprolol Tartrate 25 mg BID PO 07/05/24 22:00 Examination: GENERAL:Normal, LUNGS:Normal, CVS:Normal, NEURO:Normal laboratory and microbiology Laboratory Tests 07/04/24 07:37 07/03/24 09:00 Test 07/04/24 07:37 Range/Units Serum Glucose 109 H 74-106 mg/dL Problem List/Assessment/Plan Problem List/Assessment/Plan Acute on chronic decompensated end-stage HFrEF, NYHA Class III 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 Davison): * Echocardiogram reveals EF 10% (on 03/31/24) * Strict intake and output, daily weights, maintain fluid restriction * Initiate GDMT for CHF as tolerated by BP * Continue Lisinopril * Beta-alexx as tolerated by BP * Hold spironolactone until stable potassium * SGLT2i added given improved GFR * [id number] VASc score: 3, HAS-BLED: 1 point * Continue NOAC therapy, Eliquis * Beta-alexx for rate control * Diuresis as tolerated Patient seen and examined at bedside with . Patient pending transfer to [facility]. There is no further inpatient cardiac workup indicated this time. Patient to follow up with Cardiology in the outpatient setting in 1-2 weeks post discharge. Thank you for allowing us to care for this patient. Please call with any questions or concerns. This medical document was created using an electronic medical record system with voice recognition software and computerized dictation system. Although this document has been carefully reviewed, there might still be some phonetic and typographical errors. Occasional wrong-word or ``sound-alike substitutions may have occurred due to the inherent limitations of voice recognition software. These areas are purely typographical due to imperfections of the software programs and do not reflect any compromise in the patient's medical care. Please read the chart carefully and recognize, using context, where these substitutions have occurred. Plan discussed with: Patient Date of Service: Jul 05, 2024 Billing Provider: RISHI DAVISON MD Common Visit Codes: [id number] INP/OBS CARE(HIGH) KEVIN ARRIETA INSURANCE APPRAISER Jul 05, 2024 12:36
[2024-07-05 13:27] LABS: Basophils # (auto) 0.1 10 ^3/uL (0-0.2); Basophils % (auto) 1.8 % (0.0-2.0); Eosinophils # (auto) 0.1 10 ^3/uL (0-0.8); Eosinophils % (auto) 1.9 % (0.0-7.0); Hematocrit 33.5 % (41.0-53.0); Hemoglobin 10.5 g/dL (13.5-17.5); Lymphocytes % (auto) 15.1 % (10.0-50.0); Mean Corpuscular Hemoglobin 25.1 pg (28.0-32.0); Mean Corpuscular Hgb Conc. 31.5 g/dL (32.0-36.0); Mean Corpuscular Volume 79.5 fL (80.0-100.0); Monocytes % (auto) 15.2 % (0.0-12.0); Neutrophils # (auto) 4.3 10 ^3/uL (1.6-8.6); Nucleated Red Blood Cells % 0.1 %; Platelet Count (auto) 304 10^3/uL (140-450); Red Blood Cells 4.21 10^6/uL (4.5-5.90); Red Cell Distribution Width 25.8 % (11.8-14.3); White Blood Cell 6.5 10^3/uL (4.4-10.8)
[2024-07-05 13:31] LABS: Anion Gap 9 (5-15); Carbon Dioxide 27 mmol/L (20-31); Potassium 3.9 mmol/L (3.5-5.1)
[2024-07-05 13:32] LABS: Calcium 9.5 mg/dL (8.7-10.4)
[2024-07-05 13:35] LABS: Chloride 95 mmol/L (98-107); Sodium 131 mmol/L (136-145)
[2024-07-05 13:37] LABS: BUN/Creatinine Ratio 21.3 (10.0-20.0); Glucose 80 mg/dL (74-106)
[2024-07-05 13:38] LABS: Blood Urea Nitrogen 37 mg/dL (9-23)
[2024-07-05] MEDS: traMADol HCL 50 MG TAB PO PRN (16:07)
[2024-07-05] MEDS: METOPROLOL TARTRATE 25 MG TAB PO SCH (22:00)
[2024-07-06 01:00] VITALS: BP 93/70; PULSE 52; RESP 20; TEMP 99.1; O2SAT 100
[2024-07-06 05:00] VITALS: BP 96/61; PULSE 87; RESP 23; TEMP 96.6; O2SAT 99
[2024-07-06] MEDS: MORPHINE SULFATE INJ 2 MG/ml SYRG IV ONE (05:14)
[2024-07-06 08:00] VITALS: PULSE 85; RESP 20; O2SAT 95
--- NOTE | 2024-07-06 08:10 | ECG ---
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
[2024-07-06 08:42] VITALS: BP 111/57; PULSE 63; RESP 18; TEMP 97.3; O2SAT 95
[2024-07-06] MEDS: EMPAGLIFLOZIN 10 MG TAB PO SCH (09:11)
--- NOTE | 2024-07-06 09:41 | ECG ---
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
[2024-07-06 13:00] VITALS: BP 105/65; PULSE 59; RESP 18; TEMP 95.9; O2SAT 98
== END 2024-07-06 14:53 | disposition home health service (06) | DRG 420 ==
LOC: EDSEX 16:22 → EDBD 16:22 → ER 16:22 → TELE 22:22 → TELE-WESTW 07-03 03:00
PROVIDERS: ADMIT Nurse Practitioner Acute Care; ATTEND Nurse Practitioner Acute Care
DX: E11.10 Type 2 diabetes mellitus with ketoacidosis without coma (principal); N17.0 Acute kidney failure with tubular necrosis; J96.01 Acute respiratory failure with hypoxia; R57.9 Shock, unspecified; I50.23 Acute on chronic systolic (congestive) heart failure; I48.92 Unspecified atrial flutter; D63.1 Anemia in chronic kidney disease; I27.20 Pulmonary hypertension, unspecified; G40.909 Epilepsy, unspecified, not intractable, without status epilepticus; I48.91 Unspecified atrial fibrillation; D63.8 Anemia in other chronic diseases classified elsewhere; D69.6 Thrombocytopenia, unspecified; I42.7 Cardiomyopathy due to drug and external agent; E66.01 Morbid (severe) obesity due to excess calories; E87.5 Hyperkalemia; J44.9 Chronic obstructive pulmonary disease, unspecified; I07.1 Rheumatic tricuspid insufficiency; T50.995A Adverse effect of other drugs, medicaments and biological substances, initial encounter; I25.10 Atherosclerotic heart disease of native coronary artery without angina pectoris; I13.0 Hypertensive heart and chronic kidney disease with heart failure and stage 1 through stage 4 chronic kidney disease, or unspecified chronic kidney disease; N18.9 Chronic kidney disease, unspecified; Z91.199 Patient's noncompliance with other medical treatment and regimen due to unspecified reason; Z79.01 Long term (current) use of anticoagulants; Z86.73 Personal history of transient ischemic attack (TIA), and cerebral infarction without residual deficits; Y92.89 Other specified places as the place of occurrence of the external cause
CPT/HCPCS: 36415; 36600; 71045; 80048; 80053; 80061; 80307; 80320; 80329; 81001; 82010; 82140; 82570; 82805; 82962; 83735; 83880; 83930; 84100; 84300; 84484; 85007; 85025; 85027; 86850; 86900; 86901; 93005; 93971; 99291; G0378; J1815; J1885; J2405; J3490